=== PATIENT | female | born 1970 | race Caucasian/White ===

== ENCOUNTER 2017-08-11 09:02 | Emergency (ER) | payer BC ==
[2017-08-11] MEDS ORDERED: KETOROLAC 30 MG/ML INJ ONE (09:59)
[2017-08-11] MEDS ORDERED: NA CHLORIDE 0.9% 1,000 ML ONE (09:59)
[2017-08-11] MEDS ORDERED: ONDANSETRON 4 MG/2 ML VIAL ONE (09:59)
--- NOTE | 2017-08-11 10:20 | RAD REPORT ---
EXAM DESCRIPTION: CT - Head Brain Wo Cont - 08/11/2017 10:01 am CLINICAL HISTORY: Headache COMPARISON: 2013 TECHNIQUE: Computed axial tomography of the head was obtained. IV contrast was not requested. All CT scans are performed using dose optimization technique as appropriate and may include automated exposure control or mA/KV adjustment according to patient size. FINDINGS: An intracranial bleed is not seen . The ventricles are normal in caliber. No extra-axial fluid collection is noted. Fluid within the sinuses/ mastoids is not seen. IMPRESSION: No acute intracranial abnormality is seen. If patient's symptoms persist MRI of the bra in would be recommended.
[2017-08-11 10:26] LABS: Urine Specific Gravity 1.015 (1.005-1.030)
[2017-08-11 10:26] LABS: Absolute Lymphocytes (CBC) 3.4 K/uL (0.7-4.9); Absolute Monocytes 0.7 K/uL (0.1-1.3); Absolute Neutrophil 6.4 K/uL (1.8-8.0); Basophils % 0.8 % (0-1.3); Eosinophils % 1.9 % (0-4.4); Lymphocytes % 31.1 % (15.3-44.8); MCH 30.1 pg (27.0-35.0); MCV 88.2 fL (80-100); MPV 8.3 fL (7.6-11.3); Monocytes % 6.6 % (3.3-12.3); RBC Red Blood Cell Count 4.76 M/uL (3.86-4.86)
[2017-08-11 10:26] LABS: Urine Blood NEGATIVE (NEG); Urine Glucose NEGATIVE (NEG); Urine Protein NEGATIVE (NEG); Urine Specific Gravity 1.015 (1.005-1.030); Urine pH 6.5 (5.0-7.0)
[2017-08-11 10:27] LABS: Protime INR 1.01
[2017-08-11 10:40] LABS: Potassium 3.9 mEq/L (3.6-5.0)
--- NOTE | 2017-08-11 14:15 | EDPHYS ---
Physician Documentation [facility] Name: Paola De La Paz Age: 46 yrs Sex: Female : 1970 Arrival Date: 08/11/2017 Time: 09:05 Bed 17 Private MD: Randolph Wetzel ED Physician Benjamín Ramírez HPI: 08/11 21:34 This 46 yrs old Female presents to ER via Wheelchair with complaints of kdr Headache, Body Numbness. 21:34 The patient complains of pain to the left temporal area and left shinto. The patient kdr describes the headache as Sharp stabbing to left shinto. Onset: The symptoms/episode began/occurred acutely, just prior to arrival. Associated signs and symptoms: Pertinent positives: Global numbness and tingling, Pertinent negatives: altered mental status, dizziness, fever, malaise, nausea, neck stiffness, Photophobia rash, sinus congestion, sinus tenderness, vision changes, vision loss, vomiting, weakness, vertigo. Severity of symptoms: At its worst the pain was moderate, severe, just prior to arrival, in the emergency department the pain has improved, mildly. Headache History: The patient has had previous headaches and this one is different than previous episodes, and this one is more severe than previous episodes. The symptoms are alleviated by nothing. the symptoms are aggravated by nothing. The patient has not experienced similar symptoms in the past, has a prior history of migraines but this is different . The patient has not recently seen a physician. Historical: - Allergies: 09:10 PENICILLINS; aa5 09:10 Iodine; aa5 - PMHx: 09:10 PE; DVT; aa5 09:10 CVA; Pneumonia; aa5 - PSHx: 09:10 Tubal ligation; Tonsillectomy; Surgery for DVT; aa5 - Immunization history:: Adult Immunizations up to date. - Social history:: Smoking status: Patient uses tobacco products, smokes one pack cigarettes per day. - Ebola Screening: : No symptoms or risks identified at this time. ROS: 21:34 Constitutional: Negative for fever, chills, and weight loss, Eyes: Negative for injury, kdr pain, redness, and discharge, ENT: Negative for injury, pain, and discharge, Neck: Negative for injury, pain, and swelling, Cardiovascular: Negative for chest pain, palpitations, and edema, Respiratory: Negative for shortness of breath, cough, wheezing, and pleuritic chest pain, Abdomen/GI: Negative for abdominal pain, nausea, vomiting, diarrhea, and constipation, Back: Negative for injury and pain, : Negative for injury, bleeding, discharge, and swelling, MS/Extremity: Negative for injury and deformity, Skin: Negative for injury, rash, and discoloration, Psych: Negative for depression, anxiety, suicide ideation, homicidal ideation, and hallucinations, Allergy/Immunology: Negative for hives, rash, and allergies, Endocrine: Negative for neck swelling, polydipsia, polyuria, polyphagia, and marked weight changes, Hematologic/Lymphatic: Negative for swollen nodes, abnormal bleeding, and unusual bruising. 21:34 Neuro: Positive for headache, numbness, tingling, Negative for altered mental status, dizziness, gait disturbance, hearing loss, loss of consciousness, seizure activity, speech changes, syncope, near syncope, tinnitus, tremor, visual changes, weakness. Exam: 21:34 Constitutional: This is a well developed, well nourished patient who is awake, alert, kdr and in no acute distress. Head/Face: Normocephalic, atraumatic. Eyes: Pupils equal round and reactive to light, extra-ocular motions intact. Lids and lashes normal. Conjunctiva and sclera are non-icteric and not injected. Cornea within normal limits. Periorbital areas with no swelling, redness, or edema. Neck: Trachea midline, no thyromegaly or masses palpated, and no cervical lymphadenopathy. Supple, full range of motion without nuchal rigidity, or vertebral point tenderness. No Meningismus. Chest/axilla: Normal chest wall appearance and motion. Nontender with no deformity. No lesions are appreciated. Cardiovascular: Regular rate and rhythm with a normal S1 and S2. No gallops, murmurs, or rubs. Normal PMI, no JVD. No pulse deficits. Respiratory: Lungs have equal breath sounds bilaterally, clear to auscultation and percussion. No rales, rhonchi or wheezes noted. No increased work of breathing, no retractions or nasal flaring. Abdomen/GI: Soft, non-tender, with normal bowel sounds. No distension or tympany. No guarding or rebound. No evidence of tenderness throughout. Back: No spinal tenderness. No costovertebral tenderness. Full range of motion. Skin: Warm, dry with normal turgor. Normal color with no rashes, no lesions, and no evidence of cellulitis. MS/ Extremity: Pulses equal, no cyanosis. Neurovascular intact. Full, normal range of motion. Neuro: Awake and alert, GCS 15, oriented to person, place, time, and situation. Cranial nerves II-XII grossly intact. Motor strength 5/5 in all extremities. Sensory grossly intact. Cerebellar exam normal. Normal gait. Psych: Awake, alert, with orientation to person, place and time. Behavior, mood, and affect are within normal limits. Vital Signs: 09:12 BP 159 / 102; Pulse 66; Resp 16 S; Temp 98.2(O); Pulse Ox 95% on R/A; Weight 99.79 kg aa5 (R); Height 5 ft. 9 in. (175.26 cm) (R); Pain 8/10; 10:20 BP 141 / 91; Pulse 61; Resp 16; Pulse Ox 97% on R/A; ae1 11:07 BP 146 / 77; Pulse 66; Resp 18; Pulse Ox 99% on R/A; ae1 12:43 BP 165 / 83; Pulse 69; Resp 15; Pulse Ox 100% on R/A; ae1 09:12 Body Mass Index 32.49 (99.79 kg, 175.26 cm) aa5 MDM: 13:45 Patient medically screened. snw 21:34 Data reviewed: vital signs, nurses notes, lab test result(s), radiologic studies. kdr Counseling: I had a detailed discussion with the patient and/or guardian regarding: the historical points, exam findings, and any diagnostic results supporting the discharge/admit diagnosis, lab results, radiology results, the need for outpatient follow up. Physician consultation: Juan Barragan MD regarding consult, patient's condition, would like further tests performed, ESR, CRP. 08/11 09:46 Order name: CBC with Diff; Complete Time: 10:55 kdr 08/11 09:46 Order name: Chem 7; Complete Time: 10:55 kdr 08/11 09:46 Order name: PT-INR; Complete Time: 10:55 kdr 08/11 09:59 Order name: Urine Dipstick--Ancillary (enter results); Complete Time: 10:55 bd 08/11 10:02 Order name: Urine --Ancillary (enter results); Complete Time: 10:55 bd 08/11 12:53 Order name: ESR; Complete Time: 14:09 kdr 08/11 09:46 Order name: CT Head Brain wo Cont; Complete Time: 10:55 kdr 08/11 09:46 Order name: Urine Dipstick-Ancillary (obtain specimen); Complete Time: 09:55 kdr 08/11 12:53 Order name: CRP; Complete Time: 14:09 kdr Administered Medications: 10:00 Drug: NS 0.9% 1000 ml Route: IV; Rate: 125 ml/hr; Site: right antecubital; ae1 14:25 Follow up: IV Status: IV converted to saline lock ae1 10:09 Drug: Zofran 4 mg Route: IVP; Site: right antecubital; ae1 12:57 Follow up: Response: Nausea is decreased ae1 10:32 Drug: TORadol 30 mg Route: IVP; Site: right antecubital; ae1 12:57 Follow up: Response: Pain is decreased ae1 Disposition: 08/11/17 14:15 Discharged to Home. Impression: Headache, Neuralgia and neuritis, unspecified. - Condition is Stable. - Discharge Instructions: General Headache Without Cause. - Medication Reconciliation Form, Thank You Letter form. - Follow up: Randolph Wetzel MD; When: 2 - 3 days; Reason: If symptoms return, Further diagnostic work-up, Recheck today's complaints, Continuance of care, Re-evaluation by your physician. Follow up: Juan Barragan MD; When: 2 - 3 days; Reason: If symptoms return, Further diagnostic work-up, Recheck today's complaints, Continuance of care, Re-evaluation by your physician. - Problem is new. - Symptoms are resolved. Signatures: Dispatcher [employer] EDMS Benjamín Ramírez MD MD kdr Therrien, Shelly, SHAQUILLE-Minda [employer]REDDING [employer] EQUIPMENT OPERATOR-Lovew Ángela Biswas, RN RN aa5 Joel Presley RN RN ae1 Corrections: (The following items were deleted from the chart) 14:24 14:15 08/11/2017 14:15 Discharged to Home. Impression: Headache; Neuralgia and ae1 neuritis, unspecified. Condition is Stable. Forms are Medication Reconciliation Form, Thank You Letter, Antibiotic Education, Prescription Opioid Use. Follow up: Randolph Wetzel; When: 2 - 3 days; Reason: If symptoms return, Further diagnostic work-up, Recheck today's complaints, Continuance of care, Re-evaluation by your physician. Follow up: Juan Barragan; When: 2 - 3 days; Reason: If symptoms return, Further diagnostic work-up, Recheck today's complaints, Continuance of care, Re-evaluation by your physician. Problem is new. Symptoms are resolved. kdr
--- NOTE | 2017-08-11 14:15 | ER ---
Nurse's Notes [facility] Name: Paola De La Paz Age: 46 yrs Sex: Female : 1970 Arrival Date: 08/11/2017 Time: 09:05 Bed 17 Private MD: Randolph Wetzel Diagnosis: Headache;Neuralgia and neuritis, unspecified Presentation: 08/11 09:10 Presenting complaint: Patient states: "I was just at work when all of a sudden I got a aa5 sharp pain on my head and my whole body is numb now". pt c/o headache to left christianity. Pt states "my family has a history of aneurysms so I am worried". 09:10 Transition of care: patient was not received from another setting of care. Onset of aa5 symptoms was August 11, 2017. Risk Assessment: Do you want to hurt yourself or someone else? Patient reports no desire to harm self or others. Initial Sepsis Screen: Does the patient meet any 2 criteria? No. Patient's initial sepsis screen is negative. Does the patient have a suspected source of infection? No. Patient's initial sepsis screen is negative. Care prior to arrival: None. 09:10 Method Of Arrival: Wheelchair aa5 09:10 Acuity: WILLIAM 2 aa5 Triage Assessment: 10:16 Headache History: The patient has had previous headaches and this one is different than ae1 previous episodes, and this one is more severe than previous episodes. General: Appears uncomfortable, Behavior is calm, cooperative, quiet. Pain: Complains of pain in head and back of head Pain began suddenly, Also complains of photophobia. Neuro:. Respiratory: Airway is patent Respiratory effort is even, unlabored, Respiratory pattern is regular, symmetrical. 10:16 Pain: Pain currently is 9 out of 10 on a pain scale. ae1 Historical: - Allergies: 09:10 PENICILLINS; aa5 09:10 Iodine; aa5 - PMHx: 09:10 PE; DVT; aa5 09:10 CVA; Pneumonia; aa5 - PSHx: 09:10 Tubal ligation; Tonsillectomy; Surgery for DVT; aa5 - Immunization history:: Adult Immunizations up to date. - Social history:: Smoking status: Patient uses tobacco products, smokes one pack cigarettes per day. - Ebola Screening: : No symptoms or risks identified at this time. Screenin:16 Abuse screen: Denies threats or abuse. Nutritional screening: No deficits noted. ae1 Tuberculosis screening: No symptoms or risk factors identified. Fall Risk None identified. Assessment: 11:09 Reassessment: Patient appears in no apparent distress at this time. Patient states ae1 feeling better. Vital Signs: 09:12 BP 159 / 102; Pulse 66; Resp 16 S; Temp 98.2(O); Pulse Ox 95% on R/A; Weight 99.79 kg aa5 (R); Height 5 ft. 9 in. (175.26 cm) (R); Pain 8/10; 10:20 BP 141 / 91; Pulse 61; Resp 16; Pulse Ox 97% on R/A; ae1 11:07 BP 146 / 77; Pulse 66; Resp 18; Pulse Ox 99% on R/A; ae1 12:43 BP 165 / 83; Pulse 69; Resp 15; Pulse Ox 100% on R/A; ae1 09:12 Body Mass Index 32.49 (99.79 kg, 175.26 cm) aa5 ED Course: 09:05 Patient arrived in ED. mr 09:05 Randolph Wetzel MD is Private Physician. mr 09:10 Arm band placed on Patient placed in an exam room, on a stretcher. aa5 09:11 Benjamín Ramírez MD is Attending Physician. kdr 09:15 Triage completed. aa5 09:19 Joel Presley, LUIGI is Primary Nurse. ae1 09:58 Urine collected: clean catch specimen, clear, milagros colored. jb1 10:[address] via wheelchair. sj 10:01 CT Head Brain wo Cont In Process Unspecified. EDMS 10:01 CT completed. Patient tolerated procedure well. Patient moved back from CT. sj 10:08 Inserted saline lock: 20 gauge in right antecubital area, using aseptic technique. ae1 Blood collected. 10:18 Bed in low position. Call light in reach. Side rails up X 1. Adult w/ patient. Pulse ox ae1 on. NIBP on. Warm blanket given. 14:10 Randolph Wetzel MD is Referral Physician. kdr 14:10 Juan Barragan MD is Referral Physician. kdr 14:24 No provider procedures requiring assistance completed. IV discontinued, intact, ae1 bleeding controlled, No redness/swelling at site. Pressure dressing applied. Administered Medications: 10:00 Drug: NS 0.9% 1000 ml Route: IV; Rate: 125 ml/hr; Site: right antecubital; ae1 14:25 Follow up: IV Status: IV converted to saline lock ae1 10:09 Drug: Zofran 4 mg Route: IVP; Site: right antecubital; ae1 12:57 Follow up: Response: Nausea is decreased ae1 10:32 Drug: TORadol 30 mg Route: IVP; Site: right antecubital; ae1 12:57 Follow up: Response: Pain is decreased ae1 Outcome: 14:15 Discharge ordered by . kdr 14:24 Discharged to home ambulatory. ae1 14:24 Condition: stable 14:24 Discharge instructions given to patient, Instructed on discharge instructions, follow up and referral plans. Demonstrated understanding of instructions, follow-up care. 14:24 Patient left the ED. ae1 Signatures: Dispatcher [employer] EDMS Tay Juarez jb1 Benjamín Ramírez MD MD kdr Rivera, Maria mr Jones, Ángela Kent RN RN aa5 Joel Presley RN RN ae1 Corrections: (The following items were deleted from the chart) 09:17 09:10 Presenting complaint: Patient states: "I was just at work when all of a sudden I aa5 got a sharp pain on my head and my whole body is numb now". pt c/o headache to left christianity. aa5 09:17 09:10 Acuity: WILLIAM 3 aa5 aa5
[2017-08-11 14:28] VITALS: TEMP 98.2
[2017-08-11 14:31] VITALS: BP 165/83; O2SAT 100
== END 2017-08-11 14:24 | disposition home or self-care (01) ==
LOC: ER 09:02
DX: M79.2 Neuralgia and neuritis, unspecified (principal); F17.210 Nicotine dependence, cigarettes, uncomplicated; Z88.0 Allergy status to penicillin; Z91.048 Other nonmedicinal substance allergy status
CPT/HCPCS: 36415; 70450; 80048; 81003; 81025; 85025; 85610; 85652; 86140; 96361; 96374; 96375; 99284; J2405; J7030

== ENCOUNTER 2018-03-12 12:56 | Emergency (ER) | payer BC ==
[2018-03-12] MEDS ORDERED: NA CHLORIDE 0.9% 1,000 ML ONE (14:05)
[2018-03-12 14:06] LABS: Absolute Lymphocytes (CBC) 1.3 K/uL (0.7-4.9); Absolute Monocytes 0.7 K/uL (0.1-1.3); Absolute Neutrophil 10.6 K/uL (1.8-8.0); Basophils % 0.7 % (0-1.3); Eosinophils % 0.3 % (0-4.4); Hematocrit 48.2 % (36.0-45.0); Lymphocytes % 10.5 % (15.3-44.8); MPV 8.5 fL (7.6-11.3); Monocytes % 5.2 % (3.3-12.3); Protime INR 1.14
--- NOTE | 2018-03-12 14:12 | RAD REPORT ---
EXAM DESCRIPTION: RAD - Chest Pa And Lat (2 Views) - 03/12/2018 1:52 pm CLINICAL HISTORY: COUGH Chest pain. COMPARISON: CHEST SINGLE VIEW dated 08/29/2013; CHEST SINGLE VIEW dated 08/16/2013; CHEST SINGLE VIEW d ated 09/18/2012; CHEST SINGLE VIEW dated 12/08/2009 FINDINGS: The lungs are clear. The heart is normal in size. No displaced fractures. IMPRESSION: No acute or concerning finding suspected.
[2018-03-12 14:18] LABS: Potassium 3.5 mmol/L (3.5-5.1)
--- NOTE | 2018-03-12 14:54 | RAD REPORT ---
EXAM DESCRIPTION: CT - Chest For Pe Angio - 03/12/2018 2:44 pm CLINICAL HISTORY: Chest pain. cough, hemoptysis, hx of PE COMPARISON: CTANGIO CHEST FOR PE dated 08/16/2013 TECHNIQUE: CT angiogram of the pulmonary arteries was performed with MIP. All CT scans are performed using dose optimization technique as appropriate and may include automated exposure control or mA/KV adjustment according to patient size. FINDINGS: No evidence of pulmonary thromboembolism. No acute aortic finding demonstrated. The lungs are clear. No significant pericardial or pleural fluid. No concerning bony finding. IMPRESSION: No evidence of pulmonary thromboembolism. No acute lung findings.
--- NOTE | 2018-03-12 15:07 | EDPHYS ---
Physician Documentation [facility] Name: Paola De La Paz Age: 47 yrs Sex: Female : 1970 Arrival Date: 03/12/2018 Time: 13:00 Bed 8 Private MD: Randolph Wetzel ED Physician Anup Rivera HPI: 03/12 13:36 This 47 yrs old Female presents to ER via Ambulatory with complaints of Cough.rn 13:36 The patient or guardian reports cough, that is intermittent, described as mild. rn 13:40 Onset: The symptoms/episode began/occurred 2 day(s) ago. Severity of symptoms: At their rn worst the symptoms were mild, in the emergency department the symptoms are unchanged. The patient has experienced similar episodes in the past. The patient has not recently seen a physician. Reports fever, chills, muscle aches, cough, for a few days, similar symptoms in 2 other family members, mainly concerned because of history of dvt/PE, is on coumadin, and patient reports this feels different compared to when had blood clots. . Historical: - Allergies: 13:05 Iodine; ss 13:05 PENICILLINS; ss - PMHx: 13:05 CVA; DVT; PE; Pneumonia; Hypertension; ss - PSHx: 13:05 Tubal ligation; Tonsillectomy; Surgery for DVT; ss - Immunization history:: Adult Immunizations up to date. - Social history:: Smoking status: Patient uses tobacco products, smokes one pack cigarettes per day. - Ebola Screening: : Patient denies exposure to infectious person Patient denies travel to an Ebola-affected area in the 21 days before illness onset. - Family history:: not pertinent. - Hospitalizations: : No recent hospitalization is reported. ROS: 13:40 Constitutional: Negative for weight loss, + fever and chills Eyes: Negative for injury, rn pain, redness, and discharge, Cardiovascular: Negative for chest pain, palpitations, and edema, Respiratory: + cough Abdomen/GI: Negative for abdominal pain, nausea, vomiting, diarrhea, and constipation, MS/Extremity: Negative for injury and deformity, Skin: Negative for injury, rash, and discoloration, Neuro: Negative for headache, weakness, numbness, tingling, and seizure. Exam: 13:40 Constitutional: This is a well developed, well nourished patient who is awake, alert, rn and in no acute distress. Head/Face: Normocephalic, atraumatic. Eyes: Pupils equal round and reactive to light, extra-ocular motions intact. Lids and lashes normal. Conjunctiva and sclera are non-icteric and not injected. Cornea within normal limits. Periorbital areas with no swelling, redness, or edema. ENT: dry MM, no stridor Cardiovascular: Tachycardic, regular, no murmur Respiratory: Lungs have equal breath sounds bilaterally, clear to auscultation. No increased work of breathing, no retractions or nasal flaring. Abdomen/GI: soft, non-tender Skin: Warm, dry with normal turgor. Normal color with no rashes, no lesions, and no evidence of cellulitis. MS/ Extremity: Pulses equal, no cyanosis. Neurovascular intact. Full, normal range of motion. LLE > circumference compared to RLE (at baseline). Neuro: Awake and alert, GCS 15, oriented to person, place, time, and situation. Cranial nerves II-XII grossly intact. Motor strength 5/5 in all extremities. Sensory grossly intact. Vital Signs: 13:05 BP 190 / 123; Pulse 119; Resp 20; Temp 97.9(O); Pulse Ox 97% on R/A; Weight 99.79 kg; ss Height 5 ft. 9 in. (175.26 cm); Pain 10/10; 15:08 BP 161 / 95; Pulse 103; Pulse Ox 100% on R/A; sg 13:05 Body Mass Index 32.49 (99.79 kg, 175.26 cm) ss MDM: 13:18 Patient medically screened. rn 15:05 Differential Diagnosis: Bronchitis Influenza Upper Respiratory Infection Viral Syndrome rn Pneumonia Other Pulmonary embolism. Data reviewed: vital signs, nurses notes, lab test result(s), radiologic studies, CT scan, plain films, and as a result, I will discharge patient. Counseling: I had a detailed discussion with the patient and/or guardian regarding: the historical points, exam findings, and any diagnostic results supporting the discharge/admit diagnosis, lab results, radiology results, the need for outpatient follow up, to return to the emergency department if symptoms worsen or persist or if there are any questions or concerns that arise at home. Special discussion: I discussed with the patient/guardian in detail that at this point there is no indication for admission to the hospital. It is understood, however, that if the symptoms persist or worsen the patient needs to return immediately for re-evaluation. 03/12 13:28 Order name: CBC with Diff; Complete Time: 15: rn 03/12 13:28 Order name: Basic Metabolic Panel; Complete Time: 15: rn 03/12 13:28 Order name: Flu; Complete Time: 15: rn 03/12 13:28 Order name: Strep; Complete Time: 15: rn 03/12 13:28 Order name: PT-INR; Complete Time: 15: rn 03/12 13:28 Order name: Blood Culture Adult (2) rn 03/12 13:28 Order name: IV Start; Complete Time: 13:53 rn 03/12 13:28 Order name: XRAY Chest Pa And Lat (2 Views); Complete Time: 15: rn 03/12 13:28 Order name: Procalcitonin; Complete Time: 15: rn 03/12 13:29 Order name: CT Chest For PE Angio; Complete Time: 15: rn 03/12 14:12 Order name: Throat Culture EDMS Administered Medications: 13:58 Drug: NS 0.9% 1000 ml Route: IV; Rate: 1000 ml; Site: right antecubital; sg 14:55 Follow up: Response: No adverse reaction; IV Status: Completed infusion; IV Intake: sg 1000ml Disposition: 03/12/18 15:06 Discharged to Home. Impression: Cough, Hemoptysis, Bronchiectasis. - Condition is Stable. - Discharge Instructions: Hemoptysis, Cough, Adult. - Prescriptions for Zithromax Z- Lionel 250 mg Oral Tablet - take 1 tablet by ORAL route as directed for 5 days Day 1 - take two (2) tablets one time. Day 2, 3, 4 , 5 take one (1) tablet once daily.; 6 tablet. - Medication Reconciliation Form, Thank You Letter, Antibiotic Education, Prescription Opioid Use form. - Follow up: Randolph Wetzel MD; When: As needed; Reason: Recheck today's complaints, Re-evaluation by your physician. - Problem is new. - Symptoms have improved. Signatures: Dispatcher [employer] EDMS Sal, Toni, RN RN sg Anup Rivera MD MD rn Smirch, Shelby, RN RN ss Botello, Elizabeth eb Corrections: (The following items were deleted from the chart) 15:07 15:06 03/12/2018 15:06 Discharged to Home. Impression: Cough; Hemoptysis; sg Bronchiectasis. Condition is Stable. Forms are Medication Reconciliation Form, Thank You Letter, Antibiotic Education, Prescription Opioid Use. Follow up: Randolph Wetzel; When: As needed; Reason: Recheck today's complaints, Re-evaluation by your physician. Problem is new. Symptoms have improved. rn 15:59 15:07 03/12/2018 15:06 Discharged to Home. Impression: Cough; Hemoptysis; eb Bronchiectasis. Condition is Stable. Discharge Instructions: Hemoptysis, Cough, Adult. Prescriptions for Zithromax Z-Lionel 250 mg Oral Tablet - take 1 tablet by ORAL route as directed for 5 days Day 1 - take two (2) tablets one time. Day 2, 3, 4 , 5 take one (1) tablet once daily.; 6 tablet. and Forms are Medication Reconciliation Form, Thank You Letter, Antibiotic Education, Prescription Opioid Use. Follow up: Randolph Wetzel; When: As needed; Reason: Recheck today's complaints, Re-evaluation by your physician. Problem is new. Symptoms have improved. sg
--- NOTE | 2018-03-12 15:07 | ER ---
Nurse's Notes [facility] Name: Paola De La Paz Age: 47 yrs Sex: Female : 1970 Arrival Date: 03/12/2018 Time: 13:00 Bed 8 Private MD: Randolph Wetzel Diagnosis: Cough;Hemoptysis;Bronchiectasis Presentation: 03/12 13:06 Presenting complaint: Patient states: cough, nasal congestion/ drainage, chills and ss body aches that began 2 days ago. Transition of care: patient was not received from another setting of care. Onset of symptoms was March 10, 2018. Risk Assessment: Do you want to hurt yourself or someone else? Patient reports no desire to harm self or others. Initial Sepsis Screen: Does the patient meet any 2 criteria? HR > 90 bpm. Does the patient have a suspected source of infection? Yes: Productive cough/pneumonia. Care prior to arrival: None. 13:06 Method Of Arrival: Ambulatory ss 13:06 Acuity: WILLIAM 3 ss Historical: - Allergies: 13:05 Iodine; ss 13:05 PENICILLINS; ss - PMHx: 13:05 CVA; DVT; PE; Pneumonia; Hypertension; ss - PSHx: 13:05 Tubal ligation; Tonsillectomy; Surgery for DVT; ss - Immunization history:: Adult Immunizations up to date. - Social history:: Smoking status: Patient uses tobacco products, smokes one pack cigarettes per day. - Ebola Screening: : Patient denies exposure to infectious person Patient denies travel to an Ebola-affected area in the 21 days before illness onset. - Family history:: not pertinent. - Hospitalizations: : No recent hospitalization is reported. Screenin:00 Abuse screen: Denies threats or abuse. Denies injuries from another. Nutritional sg screening: No deficits noted. Tuberculosis screening: No symptoms or risk factors identified. Never had TB. Fall Risk None identified. Assessment: 14:00 General: Appears in no apparent distress. well groomed, well developed, well nourished, sg Behavior is calm, cooperative, appropriate for age. Pain: Denies pain. 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 Full function Gait is steady, Speech is normal, Facial symmetry appears normal. Cardiovascular: Capillary refill is brisk in bilateral fingers Patient's skin is warm and dry. Chest pain is denied. Respiratory: Reports cough that is dry, persistent Airway is patent Respiratory effort is even, unlabored, Respiratory pattern is regular, symmetrical, Breath sounds are clear the patient has mild shortness of breath. GI: No signs and/or symptoms were reported involving the gastrointestinal system. : No signs and/or symptoms were reported regarding the genitourinary system. EENT: Reports nasal congestion. Derm: Skin is pink, warm \T\ dry. Musculoskeletal: No signs and/or symptoms reported regarding the musculoskeletal system. Vital Signs: 13:05 BP 190 / 123; Pulse 119; Resp 20; Temp 97.9(O); Pulse Ox 97% on R/A; Weight 99.79 kg; ss Height 5 ft. 9 in. (175.26 cm); Pain 10/10; 15:08 BP 161 / 95; Pulse 103; Pulse Ox 100% on R/A; sg 13:05 Body Mass Index 32.49 (99.79 kg, 175.26 cm) ED Course: 13:00 Patient arrived in ED. sb2 13:00 Randolph Wetzel MD is Private Physician. sb2 13:06 Arm band placed on right wrist. ss 13:07 Triage completed. ss 13:10 Toni Sal, RN is Primary Nurse. sg 13:18 Anup Rivera MD is Attending Physician. rn 13:40 Inserted saline lock: 20 gauge in left antecubital area, using aseptic technique. eb 13:45 Initial lab(s) drawn, by me, sent to lab. First set of blood cultures drawn by me, eb Second set of blood cultures drawn by me, Flu and/or RSV swab sent to lab. Strep swab sent to lab. 13:48 XRAY Chest Pa And Lat (2 Views) In Process Unspecified. EDMS 13:52 Radiology exam delayed due to lab results not completed at this time. (BUN/Creatinine). mw3 13:52 Procalcitonin Sent. eb 13:52 Blood Culture Adult (2) Sent. eb 13:52 PT-INR Sent. eb 13:52 Strep Sent. eb 13:53 Flu Sent. eb 13:53 Basic Metabolic Panel Sent. eb 13:53 CBC with Diff Sent. eb 14:00 Patient has correct armband on for positive identification. Bed in low position. Call sg light in reach. Side rails up X2. monitoring analyst on. Pulse ox on. NIBP on. 14:32 Throat Culture Sent. sv 14:43 CT completed. Patient tolerated procedure well. Patient moved back from CT. mw3 14:44 CT Chest For PE Angio In Process Unspecified. EDMS 15:00 No provider procedures requiring assistance completed. sg 15:06 Randolph Wetzel MD is Referral Physician. rn Administered Medications: 13:58 Drug: NS 0.9% 1000 ml Route: IV; Rate: 1000 ml; Site: right antecubital; sg 14:55 Follow up: Response: No adverse reaction; IV Status: Completed infusion; IV Intake: sg 1000ml Intake: 14:55 IV: 1000ml; Total: 1000ml. Outcome: 15:06 Discharge ordered by . rn 15:07 Patient left the ED. sg 15:59 Patient left the ED. eb Signatures: Dispatcher [employer] EDPR Tita Huston RN LUIGI Toni Sal RN LUIGI Anup Rivera MD MD rn Smirch, Shelby, RN RN ss Billeau, Sheri sb2 Nguyen You Dilma Webb mw3
[2018-03-12 16:12] VITALS: TEMP 97.9
[2018-03-12 16:14] VITALS: BP 161/95; O2SAT 100
== END 2018-03-12 15:59 | disposition home or self-care (01) ==
LOC: ER 12:56
DX: J47.9 Bronchiectasis, uncomplicated (principal); R05 Cough; I10 Essential (primary) hypertension; F17.210 Nicotine dependence, cigarettes, uncomplicated; Z88.0 Allergy status to penicillin; Z91.048 Other nonmedicinal substance allergy status; Z86.718 Personal history of other venous thrombosis and embolism
CPT/HCPCS: 36415; 71046; 71275; 80048; 84145; 85025; 85610; 87040; 87070; 87081; 87804; 96360; 99285; J7030; Q9967

== ENCOUNTER 2018-08-14 06:48 | Emergency (ER) | payer BC ==
[2018-08-14 07:20] LABS: Absolute Lymphocytes (CBC) 1.8 K/uL (0.7-4.9); Absolute Monocytes 0.7 K/uL (0.1-1.3); Absolute Neutrophil 6.7 K/uL (1.8-8.0); Eosinophils % 2.1 % (0-4.4); Hematocrit 42.5 % (36.0-45.0); Monocytes % 7.1 % (3.3-12.3); RBC Red Blood Cell Count 4.83 M/uL (3.86-4.86)
[2018-08-14 07:26] LABS: Protime INR 1.07
[2018-08-14 07:52] LABS: ALT/SGPT 31 U/L (12-78); AST/SGOT 15 U/L (15-37); Albumin 4.1 g/dL (3.4-5.0); Alkaline Phosphatase 127 U/L (45-117); BUN Blood Urea Nitrogen 13 mg/dL (7-18); Bicarbonate 27 mmol/L (21-32); Bilirubin Direct 0.1 mg/dL (0-0.2); Bilirubin Total 0.5 mg/dL (0.2-1.0); Glucose Level 100 mg/dL (74-106); Magnesium 2.1 mg/dL (1.8-2.4); NT PRO-BNP 233 pg/mL (<125); Potassium 3.6 mmol/L (3.5-5.1); Sodium Level 137 mmol/L (136-145); Troponin (Emerg Dept Use Only) < 0.02 ng/mL (0.0-0.045)
--- NOTE | 2018-08-14 08:58 | RAD REPORT ---
EXAM DESCRIPTION: RAD - Chest Single View - 08/14/2018 7:28 am CLINICAL HISTORY: CHEST PAIN Chest pain. COMPARISON: Chest Pa And Lat (2 Views) dated 03/12/2018; CHEST SINGLE VIEW dated 08/29/2013; CHEST SI NGLE VIEW dated 08/16/2013; CHEST SINGLE VIEW dated 09/18/2012 FINDINGS: Portable technique limits examination quality. The lungs are grossly clear. The heart is normal in size. No displaced fractures. IMPRESSION: No acute intrathoracic process suspected.
[2018-08-14] MEDS ORDERED: ACETAMINOPHEN 500 MG TAB ONE (09:43)
[2018-08-14 11:55] LABS: Urine Blood NEGATIVE (NEG); Urine Glucose NEGATIVE (NEG); Urine Protein TRACE (NEG); Urine Specific Gravity 1.015 (1.005-1.030)
--- NOTE | 2018-08-14 12:17 | EKG ---
Test Date: 2018-08-14 Test Time: 06:50:40 Branch Associate: BOGDAN MEASUREMENT RESULTS: Intervals: Rate: 89 HI: 140 QRSD: 80 QT: 374 QTc: 455 [place]: P: 57 HI: 140 QRS: 50 T: 58 INTERPRETIVE STATEMENTS: Normal sinus rhythm Possible Left atrial enlargement Borderline ECG Compared to ECG 08/29/2013 23:30:28 No significant changes Electronically Signed On 08-14-18 12:16:31 CDT by William Uribe
--- NOTE | 2018-08-14 12:24 | ER ---
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 06:40 Transition of care: patient was not received from another setting of care. Onset of jb4 symptoms was August 12, 2018. Risk Assessment: Do you want to hurt yourself or someone else? Patient reports no desire to harm self or others. Initial Sepsis Screen: Does the patient meet any 2 criteria? HR > 90 bpm. Yes Does the patient have a suspected source of infection? No. Patient's initial sepsis screen is negative. Care prior to arrival: Medication(s) given: Normal saline infusion, 1000 mL, Nitroglycerin paste 1 inch. 06:40 Method Of Arrival: EMS: [facility] 4 06:40 Acuity: WILLIAM 3 jb4 Triage Assessment: 07:14 General: Appears in no apparent distress. uncomfortable, Behavior is calm, cooperative, hj appropriate for age. Pain: Complains of pain in chest Pain currently is 1 out of 10 on a pain scale. 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 - Social history:: Smoking status: Patient uses tobacco products, smokes one-half pack cigarettes per day, Patient uses alcohol, occasionally. - Ebola Screening: : No symptoms or risks identified at this time. Screenin:00 Abuse screen: Denies threats or abuse. Denies injuries from another. Nutritional hj screening: No deficits noted. Tuberculosis screening: No symptoms or risk factors identified. Fall Risk None identified. Assessment: 07:00 General: Appears in no apparent distress. uncomfortable, Behavior is calm, cooperative, hj appropriate for age. Pain: Complains of pain in chest. Neuro: Level of Consciousness is awake, alert, obeys commands, Oriented to person, place, time, situation, Appropriate for age. Cardiovascular: Capillary refill < 3 seconds Patient's skin is warm and dry. Respiratory: Airway is patent Respiratory effort is even, unlabored, Respiratory pattern is regular, symmetrical. GI: No signs and/or symptoms were reported involving the gastrointestinal system. : No signs and/or symptoms were reported regarding the genitourinary system. EENT: No signs and/or symptoms were reported regarding the EENT system. Derm: No signs and/or symptoms reported regarding the dermatologic system. Musculoskeletal: No signs and/or symptoms reported regarding the musculoskeletal system. 08:00 Reassessment: Patient and/or family updated on plan of care and expected duration. Pain hj level reassessed. Patient is alert, oriented x 3, equal unlabored respirations, skin warm/dry/pink. 09:00 Reassessment: Patient and/or family updated on plan of care and expected duration. Pain hj level reassessed. Patient is alert, oriented x 3, equal unlabored respirations, skin warm/dry/pink. reports of headache; MD aware with orders;. 10:06 Reassessment: Patient and/or family updated on plan of care and expected duration. Pain hj level reassessed. Patient is alert, oriented x 3, equal unlabored respirations, skin warm/dry/pink. awaiting for 2nd trop result;. 10:23 Reassessment: Patient and/or family updated on plan of care and expected duration. Pain hj level reassessed. Patient is alert, oriented x 3, equal unlabored respirations, skin warm/dry/pink. Patient states feeling better. Patient states symptoms have improved. 11:02 Reassessment: Patient appears in no apparent distress at this time. Reassessment: ae4 Patient is lying in bed with mother at bedside, patient states " I've been here for 4 hours, I'm ready to go." Will continue to monitor. Neuro: Level of Consciousness is awake, alert, obeys commands, Oriented to person, place, time, situation, Appropriate for age. Respiratory: Airway is patent Respiratory effort is even, unlabored, Respiratory pattern is. Vital Signs: 06:40 BP 152 / 107; Pulse 94; Resp 16; Temp 98.6(O); Pulse Ox 97% on R/A; Weight 99.79 kg jb4 (R); Height 5 ft. 8 in. (172.72 cm) (R); Pain 2/10; 08:32 BP 134 / 80; Pulse 88; Resp 18; Pulse Ox 95% on R/A; hj 09:34 BP 135 / 77; Pulse 87; Resp 18; Pulse Ox 98% on R/A; hj 10:05 BP 143 / 95; Pulse 84; Resp 18; Pulse Ox 100% on R/A; hj 10:23 BP 138 / 81; Pulse 88; Resp 18; Pulse Ox 96% on R/A; hj 12:31 BP 157 / 88; Pulse 79; Resp 16; Pulse Ox 99% on R/A; ae4 06:40 Body Mass Index 33.45 (99.79 kg, 172.72 cm) jb4 ED Course: 06:40 Arm band placed on right wrist. jb4 06:54 Patient arrived in ED. jb4 06:54 Emily Fair FNP-C [facility]. snw 06:58 Triage completed. jb4 06:59 Salvador Subramanian, RN is Primary Nurse. hj 07:00 Initial lab(s) drawn, by me, sent to lab. Maintain EMS IV. Dressing intact. Good blood hj return noted. Site clean \\T\\ dry. Gauge \\T\\ site: 20 R AC. 07:05 X-ray completed. Portable x-ray completed in exam room. Patient tolerated procedure jb2 well. 07:09 Len Nielsen MD is Attending Physician. gs 07:15 Patient has correct armband on for positive identification. Placed in gown. Bed in low hj position. Call light in reach. Side rails up X 1. 07:28 XRAY Chest (1 view) In Process Unspecified. EDMS 09:29 Troponin I Sent. hj 10:45 Urine collected: clean catch specimen, clear, milagros colored. jb1 11:02 PO fluids given. hj 12:21 William Uribe MD is Referral Physician. 12:32 No provider procedures requiring assistance completed. IV discontinued, intact, ae4 bleeding controlled, No redness/swelling at site. Pressure dressing applied. Administered Medications: 09:29 Drug: Tylenol 1000 mg Route: PO; hj 09:29 Follow up: Response: No adverse reaction; Pain is decreased Outcome: 12:23 Discharge ordered by MD. 12:32 Discharged to home ambulatory, with significant other. ae4 12:32 Condition: stable 12:32 Discharge instructions given to patient, significant other, Instructed on discharge instructions, follow up and referral plans. Demonstrated understanding of instructions. 12:33 Patient left the ED. ae4 Signatures: Dispatcher [employer] EDMS Tay Juarez jb1 Emily Fair, DISTRICT ASSOCIATE JUDGE-C DISTRICT ASSOCIATE JUDGE-Csnw Erick Triplett jb2 Salvador Subramanian RN RN Pedro Pablo Ledezma RN RN jb4 Len Nielsen MD MD Joel Presley, RN RN ae4 Corrections: (The following items were deleted from the chart) : 11:02 Reassessment: Patient is lying in bed and stated " I've been here four hours I'm ae4 ready to go." Updated patient on plan of care, will continue to monitor. Will notify provider patient is requesting discharge. : 11:02 Neuro: Level of Consciousness is awake, alert, obeys commands, Oriented to ae4 person, place, time, situation, Appropriate for age 11: 11:02 Respiratory: Airway is patent Respiratory effort is even, unlabored, Respiratory ae4 pattern is regular, symmetrical, hj
--- NOTE | 2018-08-14 12:24 | EDPHYS ---
Physician Documentation [facility] Name: Paola De La Paz Age: 47 yrs Sex: Female : 1970 Arrival Date: 08/14/2018 Time: 06:54 Bed 15 Private MD: ED Physician Len Nielsen HPI: 08/14 11:07 This 47 yrs old Female presents to ER via EMS with unknown complaint. gs 11:07 The patient or guardian reports chest pain that is located primarily in the anterior gs chest wall. Onset: this morning. The pain does not radiate. Associated signs and symptoms: Pertinent negatives: diaphoresis, shortness of breath. The chest pain is described as a heaviness. Duration: The patient or guardian reports multiple episodes, that are intermittent, that wax and wane, with no pattern. Modifying factors: The symptoms are alleviated by nothing. the symptoms are aggravated by nothing. Severity of pain: At its worst the pain was moderate in the emergency department the pain has resolved. The patient has experienced similar episodes in the past, a few times. 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 - Social history:: Smoking status: Patient uses tobacco products, smokes one-half pack cigarettes per day, Patient uses alcohol, occasionally. - Ebola Screening: : No symptoms or risks identified at this time. ROS: 11:07 All other systems are negative. gs Exam: 11:07 Head/Face: Normocephalic, atraumatic. Eyes: Pupils equal round and reactive to light, gs extra-ocular motions intact. Lids and lashes normal. Conjunctiva and sclera are non-icteric and not injected. Cornea within normal limits. Periorbital areas with no swelling, redness, or edema. ENT: Nares patent. No nasal discharge, no septal abnormalities noted. Tympanic membranes are normal and external auditory canals are clear. Oropharynx with no redness, swelling, or masses, exudates, or evidence of obstruction, uvula midline. Mucous membranes moist. Neck: Trachea midline, no thyromegaly or masses palpated, and no cervical lymphadenopathy. Supple, full range of motion without nuchal rigidity, or vertebral point tenderness. No Meningismus. Chest/axilla: Normal chest wall appearance and motion. Nontender with no deformity. No lesions are appreciated. Cardiovascular: Regular rate and rhythm with a normal S1 and S2. No gallops, murmurs, or rubs. Normal PMI, no JVD. No pulse deficits. Respiratory: Lungs have equal breath sounds bilaterally, clear to auscultation and percussion. No rales, rhonchi or wheezes noted. No increased work of breathing, no retractions or nasal flaring. Abdomen/GI: Soft, non-tender, with normal bowel sounds. No distension or tympany. No guarding or rebound. No evidence of tenderness throughout. Back: No spinal tenderness. No costovertebral tenderness. Full range of motion. Skin: Warm, dry with normal turgor. Normal color with no rashes, no lesions, and no evidence of cellulitis. MS/ Extremity: Pulses equal, no cyanosis. Neurovascular intact. Full, normal range of motion. Neuro: Awake and alert, GCS 15, oriented to person, place, time, and situation. Cranial nerves II-XII grossly intact. Motor strength 5/5 in all extremities. Sensory grossly intact. Cerebellar exam normal. Normal gait. 11:07 Constitutional: The patient appears alert, awake. 11:07 ECG was reviewed by the Attending Physician. Vital Signs: 06:40 BP 152 / 107; Pulse 94; Resp 16; Temp 98.6(O); Pulse Ox 97% on R/A; Weight 99.79 kg jb4 (R); Height 5 ft. 8 in. (172.72 cm) (R); Pain 2/10; 08:32 BP 134 / 80; Pulse 88; Resp 18; Pulse Ox 95% on R/A; hj 09:34 BP 135 / 77; Pulse 87; Resp 18; Pulse Ox 98% on R/A; hj 10:05 BP 143 / 95; Pulse 84; Resp 18; Pulse Ox 100% on R/A; hj 10:23 BP 138 / 81; Pulse 88; Resp 18; Pulse Ox 96% on R/A; hj 12:31 BP 157 / 88; Pulse 79; Resp 16; Pulse Ox 99% on R/A; ae4 06:40 Body Mass Index 33.45 (99.79 kg, 172.72 cm) jb4 MDM: 07:12 Patient medically screened. gs 11:07 Differential diagnosis: acute myocardial infarction, chest wall pain, pneumonia. HEART gs Score: History: Moderately Suspicious (1), ECG: Normal (0), Age: > 45 and < 65 years (1), Risk Factors: > or = 3 Risk factors for atherosclerotic disease (2), [Hypertension] [+ Family HX] Troponin: < or = 1 x Normal Limit (0). Data reviewed: vital signs, nurses notes. 11:14 Counseling: I had a detailed discussion with the patient and/or guardian regarding: the gs historical points, exam findings, and any diagnostic results supporting the discharge/admit diagnosis, lab results, radiology results. 12:18 Physician consultation: William Uribe MD regarding patient's condition, risk factors gs troponin results plan discharge, and will see patient in office. 08/14 06:55 Order name: Basic Metabolic Panel snw 08/14 06:55 Order name: CBC with Diff; Complete Time: 09:06 snw 08/14 06:55 Order name: LFT's; Complete Time: 09: snw 08/14 06:55 Order name: Magnesium; Complete Time: 09: snw 08/14 06:55 Order name: NT PRO-BNP; Complete Time: 09:06 snw 08/14 06:55 Order name: PT-INR; Complete Time: 09: snw 08/14 06:55 Order name: Troponin (emerg Dept Use Only); Complete Time: 09: snw 08/14 06:55 Order name: XRAY Chest (1 view); Complete Time: 09: snw 08/14 06:56 Order name: Basic Metabolic Panel; Complete Time: 09:06 EDMS 08/14 09:07 Order name: Troponin I; Complete Time: 11:03 gs 08/14 11:40 Order name: Urine Dipstick--Ancillary (enter results) bd 08/14 11:40 Order name: Urine --Ancillary (enter results) bd 08/14 11:57 Order name: Urine --Ancillary EDAR 08/14 11:57 Order name: Urine Dipstick-Ancillary [facility] 08/14 06:55 Order name: EKG; Complete Time: 06:56 snw 08/14 06:55 Order name: Cardiac monitoring; Complete Time: 06:57 snw 08/14 06:55 Order name: EKG - Nurse/Tech; Complete Time: 06:56 snw 08/14 06:55 Order name: IV Saline Lock; Complete Time: 06:57 snw 08/14 06:55 Order name: Labs collected and sent; Complete Time: 07:13 snw 08/14 06:55 Order name: O2 Per Protocol; Complete Time: 07:00 snw 08/14 06:55 Order name: O2 Sat Monitoring; Complete Time: 07:00 snw EC:07 Rate is 89 beats/min. Rhythm is regular. OK interval is normal. QRS interval is normal. gs QT interval is normal. T waves are Normal. No ST changes noted. Clinical impression: Normal ECG. Interpreted by me. Administered Medications: 09:29 Drug: Tylenol 1000 mg Route: PO; 09:29 Follow up: Response: No adverse reaction; Pain is decreased Disposition: 08/14/18 12:23 Discharged to Home. Impression: Chest pain, unspecified. - Condition is Stable. - Discharge Instructions: Nonspecific Chest Pain. - Medication Reconciliation Form, Thank You Letter, Antibiotic Education, Prescription Opioid Use form. - Follow up: William Uribe MD; When: 2 - 3 days; Reason: Re-evaluation by your physician. Signatures: Dispatcher [employer] EDAR Emily Fair, ASSISTANT PLANT MANAGER-C ASSISTANT PLANT MANAGER-Csnw Salvador Subramanian, RN Pedro Pablo Higgins RN RN jb4 Len Nielsen MD MD gs Elliott, Andrea RN RN ae4 Corrections: (The following items were deleted from the chart) 11:31 11:07 HEART Score: History: Moderately Suspicious (1), ECG: Normal (0), Age: > 45 and < gs 65 years (1), Risk Factors: 1 or 2 risk factors (1), [Hypertension] Troponin: < or = 1 x Normal Limit (0), 12:33 12:23 08/14/2018 12:23 Discharged to Home. Impression: Chest pain, unspecified. ae4 Condition is Stable. Forms are Medication Reconciliation Form, Thank You Letter, Antibiotic Education, Prescription Opioid Use. Follow up: William Uribe; When: 2 - 3 days; Reason: Re-evaluation by your physician.
[2018-08-14 12:43] VITALS: BP 157/88; O2SAT 99
== END 2018-08-14 12:33 | disposition home or self-care (01) ==
LOC: ER 06:48
DX: R07.9 Chest pain, unspecified (principal); I10 Essential (primary) hypertension; F17.210 Nicotine dependence, cigarettes, uncomplicated; Z79.01 Long term (current) use of anticoagulants; Z88.0 Allergy status to penicillin; Z86.73 Personal history of transient ischemic attack (TIA), and cerebral infarction without residual deficits; Z86.718 Personal history of other venous thrombosis and embolism; Z91.048 Other nonmedicinal substance allergy status
CPT/HCPCS: 36415; 71045; 80048; 80076; 81003; 81025; 83735; 83880; 84484; 85025; 85610; 93005; 99284

== ENCOUNTER 2019-12-30 07:01 | Inpatient (IN) | payer BC, SELFPAY ==
--- OUTSIDE RECORDS SUMMARY | 2019-12-30 07:06 | XMS REPORT | Continuity of Care Document ---
:1970 Author Organization [facility] Care Team Providers Name Role Phone [facility] Unavailable Un available Problems Problem Status Onset Classification Date Comments Sour e Date Reported COPD Active 03/12/20 [facility] [address] EXACERBATION 19 Illness, 03/16/2019 [facility] est unspecified ILLNESS, Active [facility] UNSPECIFIED CHRONIC Active [facility] OBSTRUCTIVE PULMONARY DISEASE W Medications Medication Details Route Status Patient Ordering Order Source Instructions Provider Date methylPREDNISolone Notes: (Same No Longer SODium SUCCinate as:Solu-MEDROL Active 2019 , A-Methapred) amLODIPine 10 mg 10 mg = 1 tab, Active oral tablet PO, Daily, # 2019 [facility] 30 tab, 0 Refill(s), Pharmacy: [facility]/pharmacy #[id number] lisinopril 20 mg 20 mg = 1 tab, Active oral tablet PO, Daily, # 2019 st 30 tab, 0 Refill(s), Pharmacy: [facility]/pharmacy #[id number] albuterol 90 2 puff, Active mcg/inh inhalation INHALATION, 2019 [facility] aerosol QID, PRN as needed for wheezing, # 1 ea, 3 Refill(s), Pharmacy: [facility]/pharmacy #[id number] predniSONE 20 mg 40 mg = 2 tab, Active oral tablet PO, Daily, X 3 2019, # 6 tab, 0 Refill(s), Pharmacy: [facility]/pharmacy #[id number] Symbicort 160/4.5 2 puff, Active inhalation aerosol INHALER, BID, 2019 with adapter # 1 ea, 3 Refill(s), Pharmacy: [facility]/pharmacy #[id number] lisinopril 20 mg 20 mg = 1 tab, Inactive oral tablet PO, Daily, 2019 st 30 tab, 0 Refill(s) amLODIPine 10 mg 10 mg = 1 tab, Inactive oral tablet PO, Daily, # [address] [facility] [address] 30 tab, 0 Refill(s) predniSONE 20 mg 40 mg = 2 tab, Inactive oral tablet PO, Daily, X 3 2019 [facility] day, # 6 tab, 0 Refill(s) Symbicort 160/4.5 2 puff, Inactive inhalation aerosol INHALER, BID, 2019 with adapter # 1 ea, 3 Refill(s) albuterol 90 2 puff, Inactive mcg/inh inhalation INHALATION, 2019 [facility] aerosol QID, PRN as needed for wheezing, # 1 ea, 3 Refill(s) remove patch Notes: Remove Inactive old patch 2019 [facility] before application of new patch. WASTE: F/P - P Waste Black; E - P Waste Black Simethicone Notes: (Same Inactive as: Mylicon) 2019 [facility] Zolpidem tartrate 10 mg = 1 tab, Active 10 MG Oral Tablet PO, Bedtime, 0 2018 [facility] [Ambien] Refill(s) zinc sulfate 220 220 mg = 1 No Longer mg oral capsule cap, PO, Active 2018 [facility] Daily, 0 Refill(s) Sulfamethoxazole amlodipine, No Longer 03/13/ H 800 MG / PO, Q12H, 0 Active 2018 [facility] Trimethoprim 160 Refill(s) MG Oral Tablet Amlodipine PO, Daily, 0 No Longer Refill(s) Active 2018 [facility] Nicotine Notes: (Same No Longer as: Habitrol) Active 2018 [facility] "Remove old patch before application of new patch" WASTE: F/P - P Waste Black; E - P Waste Black Lisinopril Notes: (Same No Longer as: Prinivil, Active 2018 [facility] Zestril) Lisinopril Notes: (Same Inactive as: Prinivil, 2019 [facility] Zestril) Metoprolol Notes: (Same No Longer as: Lopressor) Active 2018 [facility] Push over 2 minutes metoprolol Notes: (Same No Longer tartrate as: Lopressor) Active 2018 [facility] t Reglan Notes: (Same No Longer as: Reglan) Active 2018 [facility] Azithromycin Notes: (Same No Longer As: Zithromax Active 2018 [facility] IV) azithromycin 500 Notes: Take 1 No Longer mg oral tablet hour before or Active 2018 [facility] 2 hours after meals. 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 Zofran Notes: (Same Inactive as: Zofran) 2018 [facility] MEDICATION WASTE Product Size: 4 mg Product Wasted: ___ mg Fentanyl Notes: (Same Inactive as: Sublimaze) 2018 [facility] Preservative free. Magnesium Sulfate Notes: WASTE: Inactive F/P - Sink; E 2018 [facility] - [facility] Tra Bin K-Dur 20 Notes: Inactive pharmacy 2018 [facility] re-entry for product selection (Same as: K-Dur 20) "Do Not Crush" Give with food and full glass of water For patients unable to swallow tablet, dissolve in one half glass of water. Allow about 2 minutes for the tablets to disintegrate. Stir before giving to prepare slurry and administer. Please exclude Patients with feeding tube less than 14 Canadian (Dobhoff, J-tube etc) and pediatric and patients. potassium Notes: (Same Inactive phosphate as: K 2018 [facility] Phosphate.) Do not infuse phosphorous concurrently in the same line as TPN or IVF that contains calcium. For double lumen central lines, phosphorous may be infused in a separate lumen from TPN. 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 For double lumen central lines, phosphorous may be infused in a separate lumen from TPN. 1 mMol phoshate has 1.47 mEq potassium Infuse over 4 hours Sodium Chloride 250 mL, Route: No Longer 0.9% IV IVPB, Start Active 2018 [facility] date: 03/12/19 15:53:00 CAN FILLING MACHINE OPERATOR, Duration: 30 day, Stop date: 04/11/19 15:52:00 CAN FILLING MACHINE OPERATOR, PRN Line Flush, 0 Hydralazine Notes: (Same No Longer as: Active 2018 [facility] Apresoline) Push over 5 minutes Labetalol Notes: (Same No Longer as: Normodyne, Active 2018 [facility] Trandate) Push over 2 minutes Give bolus over 2-3 minutes. methylPREDNISolone Notes: (Same No Longer SODium SUCCinate as:Solu-MEDROL Active 2018 [facility] , A-Methapred) Ondansetron Notes: (Same No Longer as: Zofran) Active 2018 [facility] MEDICATION WASTE Product Size: 4 mg Product Wasted: ___ mg Ipratropium Notes: SEE RT No Longer [place] 0.2 MG/ML DOCUMENTATION Active 2018 [facility] Inhalant Solution (Same as:Atrovent) Ipratropium Notes: SEE RT Inactive [place] 0.2 MG/ML DOCUMENTATION 2019 [facility] Inhalant Solution (Same as:Atrovent) Propranolol Notes: Give Inactive with food. 2019 [facility] (Same as: Inderal) Amlodipine Notes: (Same No Longer as: Norvasc) Active 2018 [facility] Fluoxetine Notes: (Same No Longer as: Prozac, Active 2019 [facility] Sarafem) zolpidem Notes: (Same No Longer As: Ambien) Active 2018 [facility] Albuterol 0.83 Notes: SEE RT No Longer 03/12/ M H MG/ML Inhalant DOCUMENTATION Active 2018 [facility] Solution (Same as: Proventil) potassium Notes: (Same Inactive phosphate as: K 2018 [facility] Phosphate.) Do not infuse phosphorous concurrently in the same line as TPN or IVF that contains calcium. For double lumen central lines, phosphorous may be infused in a separate lumen from TPN. 1 mMol phoshate has 1.47 mEq potassium Infuse over 4 hours Docusate Notes: (Same No Longer as: Colace) Active 2018 [facility] (Do Not Crush) sennosides, CUSTODIAL Notes: (Same No Longer 03/12/ M H as: Senokot) Active 2018 [facility] Saline Flush 0.9% Notes: No Longer preservative Active 2018 [facility] free. Budesonide 0.5 Notes: (Same No Longer MG/ML Inhalant As: Pulmicort) Active 2018 [facility] Solution glucagon 1 mg, Route: No Longer IV, Drug form: Active 2018 [facility] PDR/INJ, PRN, PRN Blood Glucose Results, Start date: 03/12/19 8:43:00 CAN FILLING MACHINE OPERATOR, Duration: 30 day, Stop date: 04/11/19 8:42:00 CAN FILLING MACHINE OPERATOR, 0 Humalog Notes: (Same No Longer as: Humalog) Active 2018 [facility] Roll in palms of hands gently; Do not shake vigorously. WASTE: F/P - Black; E - BrandBacker Trash Bin Stable for 28 days at room temperature. Expires in days from Date Dextrose 50% in 50 mL, Route: No Longer Water IV IVP, Start Active 2018 [facility] date: 03/12/19 8:42:00 CAN FILLING MACHINE OPERATOR, Duration: 30 day, Stop date: 04/11/19 8:41:00 CAN FILLING MACHINE OPERATOR, PRN Blood Glucose Results, 0 Potassium Chloride Notes: (Same Inactive 1.33 MEQ/ML Oral as: K-Dur 20) 2019 [facility] Solution "Do Not Crush" Give with food and full glass of water For patients unable to swallow tablet, dissolve in one half glass of water. Allow about 2 minutes for the tablets to disintegrate. Stir before giving to prepare slurry and administer. Please exclude Patient’ s with feeding tube less than 14 Canadian (Dobhoff, J-tube etc) and pediatric and patients. Albuterol 0.833 Notes: (Same Inactive MG/ML / as: Duoneb) 2018 [facility] Ipratropium [place] 0.167 MG/ML Inhalant Solution [DuoNeb] Potassium Chloride Notes: (Same Inactive as: KCL) 2018 [facility] Infuse no faster than 10 mEq/hr if given peripherally. sodium phosphate Notes: Infuse Inactive over 4 hour. 2018 [facility] Do not infuse phosphorous concurrently in the same line as TPN or IVF that contains calcium. For double lumen central lines, phosphorous may be infused in a separate lumen from TPN. potassium Notes: (Same Inactive phosphate as: K 2018 [facility] Phosphate.) Do not infuse phosphorous concurrently in the same line as TPN or IVF that contains calcium. For double lumen central lines, phosphorous may be infused in a separate lumen from TPN. 1 mMol phoshate has 1.47 mEq potassium Infuse over 4 hours potassium Notes: (Same Inactive phosphate-sodium as: Phos-NaK) 2018 [facility] phosphate 250 Each 1.5 gm mg-280 mg-160 mg pkt has 250mg oral powder for phosphorous. reconstitution Mix w/2.5oz water and stir. Magnesium Sulfate Notes: WASTE: Inactive F/P - Sink; E 2018 [facility] Bin Magnesium Oxide Notes: (Same Inactive as: Mag-Ox 2018 [facility] 400) Magnesium oxide [id number] elemental magnesium Dose=____mg magnesium oxide (___mg elemental magnesium) Calcium Gluconate Notes: WASTE: Inactive F/P - Sink; E 2018 [facility] Bin Calcium Carbonate Notes: (Same Inactive 500 MG Chewable As: Tums) 2018 [facility] Tablet Calcium Carbonate 500 mg = 200 mg elemental calcium Dose = mg calcium carbonate ( mg elemental calcium) Lovenox Notes: Nurse No Longer to ensure Active 2018 [facility] documentation of patient education per anticoagulatio n policy. (Same as: Lovenox) Albuterol 0.83 Notes: SEE RT Inactive MG/ML Inhalant DOCUMENTATION 2018 [facility] Solution (Same as: Proventil) Albuterol 0.833 Notes: (Same Inactive MG/ML / as: Duoneb) 2018 [facility] Ipratropium [place] 0.167 MG/ML Inhalant Solution Saline Flush 0.9% Notes: No Longer preservative Active 2018 [facility] free. Acetaminophen Notes: Do not No Longer exceed 4 Active 2018 [facility] gm/day. (Same as: Tylenol) Solu-Medrol Notes: (Same Inactive as:Solu-MEDROL 2019 [facility] , A-Methapred) Allergies, Adverse Reactions, Alerts Substance Category Reaction Severity Reaction Status Date Comments S ource type Reported penicillins Assertion Penicillin Drug Active G allergy [facility] Benzathine, 300,000 U/ML,Inject ion (systemic), injection iodine Assertion Drug Active topical allergy [facility] Immunizations No Data Provided for This Section Results Order Name Results Value Reference Date Interpretation Comments Johanna rce Range ELECTROLYT AGAP 7.7 10.0 - 03/14 ES 20.0 [facility] ELECTROLYT Glucose Lvl 123 70 - 99 03/14 [facility] ELECTROLYT BUN 28 7 - 22 03/14 [facility] ELECTROLYT Creatinine 1.20 0.50 - 03/14 ES Lvl 1.40 /2019 [facility] ELECTROLYT Sodium Lvl 137 135 - 145 03/14 [facility] ELECTROLYT Potassium 3.7 3.5 - 5.1 03/14 ES Lvl [facility] ELECTROLYT Chloride Lvl 100 95 - 109 03/14 [facility] ELECTROLYT CO2 33 24 - 32 03/14 [facility] ELECTROLYT Calcium Lvl 8.9 8.5 - 10.5 03/14 [facility] ELECTROLYT eGFR 54 03/14 Result Comment: The [facility] eGFR is calculated using the CKD-EPI formula. In most young, healthy individuals the eGFR will be >90 mL/min/1.73m2 . The eGFR declines with age. An eGFR of 60-89 may be normal in some populations, particularly the elderly, for whom the CKD-EPI formula has not been extensively validated. Use of the eGFR is not recommended in the following populations:< br/>
Sandra viduals with unstable creatinine concentration s, including patients and those with serious co-morbid conditions.<b r/>
Patie nts with extremes in muscle mass or diet.

The data above are obtained from the National Kidney Disease Education Program (NKDEP) which additionally recommends that when the eGFR is used in patients with extremes of body mass index for purposes of drug dosing, the eGFR should be multiplied by the estimated BMI. HEMATOLOGY WBC 16.8 3.7 - 10.4 03/14 [facility] HEMATOLOGY RBC 3.63 4.20 - 03/14 MH 5.40 /2019 [facility] HEMATOLOGY Hgb 10.8 12.0 - 03/14 MH 16.0 /2019 [facility] HEMATOLOGY Hct 32.2 36.0 - 03/14 MH 48.0 /2019 [facility] HEMATOLOGY MCV 88.8 80.0 - 03/14 MH 98.0 /2019 [facility] HEMATOLOGY MCH 29.6 27.0 - 03/14 MH 31.0 /2019 [facility] HEMATOLOGY MCHC 33.4 32.0 - 03/14 MH 36.0 /2019 [facility] HEMATOLOGY RDW 15.6 11.5 - 03/14 MH 14.5 /2019 [facility] HEMATOLOGY Platelet 251 133 - 450 03/14 [facility] HEMATOLOGY MPV 8.2 7.4 - 10.4 03/14 [facility] HEMATOLOGY Segs 89.1 45.0 - 03/14 MH 75.0 /2020 [facility] HEMATOLOGY Lymphocytes 7.7 20.0 - 03/14 MH 40.0 /2020 [facility] HEMATOLOGY Monocytes 3.1 2.0 - 12.0 03/14 [facility] HEMATOLOGY Basophils 0.1 0.0 - 1.0 03/14 [facility] HEMATOLOGY Neutrophils 15.0 1.5 - 8.1 / MH # /2020 [facility] HEMATOLOGY Lymphocytes 1.3 1.0 - 5.5 01/ MH # /2020 [facility] HEMATOLOGY Monocytes # 0.5 0.0 - 0.8 03/14 [facility] CHEM PANEL Glucose Lvl 139 70 - 99 03/13 [facility] BUN 16 7 - 22 03/13 [facility] Creatinine 1.20 0.50 - 03/13 MH Lvl 1.40 [facility] CHEM PANEL Sodium Lvl 137 135 - 145 03/13 [facility] CHEM PANEL Potassium 4.0 3.5 - 5.1 03/13 MH Lvl /2018 [facility] CHEM PANEL Chloride Lvl 101 95 - 109 03/13 [facility] CHEM PANEL CO2 29 24 - 32 03/13 [facility] CHEM PANEL AGAP 11.0 10.0 - 03/13 MH 20.0 /2018 [facility] CHEM PANEL Calcium Lvl 9.2 8.5 - 10.5 03/13 [facility] B/C Ratio 13 6 - 25 03/13 [facility] CHE[facility] Total 6.6 6.4 - 8.4 03/13 [facility] CHEM PANEL Albumin Lvl 3.3 3.5 - 5.0 03/13 [facility] Globulin 3.3 2.7 - 4.2 03/13 [facility] A/G Ratio 1.0 0.7 - 1.6 03/13 [facility] CHEM PANEL ALT 56 0 - 65 03/13 [facility] CHE[facility] PAN[facility] AST 26 0 - 37 03/13 [facility] CHEM PANEL Alk Phos 123 39 - 136 03/13 [facility] CHEM PANEL Bili Total 0.7 0.2 - 1.3 03/13 [facility] eGFR 54 03/[facility] Comment: The [facility] eGFR is calculated using the CKD-EPI formula. In most young, healthy individuals the eGFR will be >90 mL/min/1.73m2 . The eGFR declines with age. An eGFR of 60-89 may be normal in some populations, particularly the elderly, for whom the CKD-EPI formula has not been extensively validated. Use of the eGFR is not recommended in the following populations:< br/>
Sandra viduals with unstable creatinine concentration s, including patients and those with serious co-morbid conditions.<b r/>
Patie nts with extremes in muscle mass or diet.

The data above are obtained from the National Kidney Disease Education Program (NKDEP) which additionally recommends that when the eGFR is used in patients with extremes of body mass index for purposes of drug dosing, the eGFR should be multiplied by the estimated BMI. CHEM PANEL Magnesium 2.7 1.8 - 2.4 03/13 Lvl /2018 [facility] CHEM PANEL Phosphorus 6.5 2.5 - 4.5 03/13 [facility] HEMATOLOGY WBC 23.3 3.7 - 10.4 03/13 [facility] HEMATOLOGY RBC 3.78 4.20 - 03/13 MH 5.40 /2018 [facility] HEMATOLOGY Hgb 11.2 12.0 - 03/13 MH 16.0 [facility] Hct 33.5 36.0 - 03/13 MH 48.0 [facility] MCV 88.6 80.0 - 03/13 98.0 [facility] MCH 29.6 27.0 - 03/13 MH 31.0 [facility] MCHC 33.4 32.0 - 03/13 MH 36.0 [facility] RDW 15.1 11.5 - 03/13 14.5 [facility] Platelet 279 133 - 450 03/13 [facility] MPV 7.7 7.4 - 10.4 03/13 [facility] RBC Morph Normal Normal 03/13 (03/13/19 1:50 AM) [facility] HEMATOLOGY Plt Morph Normal Normal 03/13 (03/13/19 1:50 AM) [facility] HEMATOLOGY Segs 90.8 45.0 - 03/13 MH 75.0 [facility] Lymphocytes 6.7 20.0 - 03/13 MH 40.0 [facility] HEMATOLOGY Monocytes 2.5 2.0 - 12.0 03/13 [facility] HEMATOLOGY Eosinophils 0.0 0.0 - 4.0 03/13 [facility] HEMATOLOGY Basophils 0.0 0.0 - 1.0 03/13 [facility] HEMATOLOGY Neutrophils 21.1 1.5 - 8.1 03/13 # [facility] HEMATOLOGY Lymphocytes 1.6 1.0 - 5.5 03/13 MH # /2018 [facility] HEMATOLOGY Monocytes # 0.6 0.0 - 0.8 03/13 [facility] HEMATOLOGY Eosinophils 0.0 0.0 - 0.5 03/13 # /2018 [facility] HEMATOLOGY Basophils # 0.0 0.0 - 0.2 03/13 [facility] PARATHYROI Ca Ion WB 1.10 1.05 - 03/13 D PROFILE 1. [facility] PARATHYROI Ca Norm WB 1.14 1.05 - 03/13 D PROFILE . [facility] Gram Stain Less Than 25 Squamous Epithelial Cells/Lpf Report Rare WBC's [facility] Rare Gram Positive Rods Good Quality Specimen Culture: Few Yeast 03/13 Respiratory Normal Respiratory Alysia [facility] w/Gram Stain CARDIAC Troponin-I 0.13 0.00 - 03/12 ENZYMES 0. [facility] CHEM PANEL Phosphorus 2.6 2.5 - 4.5 03/12 [facility] CHEM PANEL Magnesium 2.5 1.8 - 2.4 03/12 Lvl [facility] CHEM PANEL Glucose Lvl 176 70 - 99 03/12 [facility] CHEM PANEL BUN 10 7 - 22 03/12 [facility] CHEM PANEL Creatinine 1.30 0.50 - 03/12 Lvl 1.40 [facility] CHEM PANEL Sodium Lvl 139 135 - 145 03/12 [facility] CHEM PANEL Potassium 2.2 3.5 - 5.1 03/12 Result Lv Comment: [facility] Critical Result(s) called to Ana at 03/12/2019 16:29 by tali. Read back OK. CHEM PANEL Chloride Lvl 102 95 - 109 03/12 [facility] CHEM PANEL CO2 22 24 - 32 03/12 [facility] CHEM PANEL AGAP 17.2 10.0 - 03/12 MH 20.0 [facility] CHEM PANEL Calcium Lvl 8.6 8.5 - 10.5 03/12 [facility] CHEM PANEL eGFR 49 03/12 Result Comment: The [facility] eGFR is calculated using the CKD-EPI formula. In most young, healthy individuals the eGFR will be >90 mL/min/1.73m2 . The eGFR declines with age. An eGFR of 60-89 may be normal in some populations, particularly the elderly, for whom the CKD-EPI formula has not been extensively validated. Use of the eGFR is not recommended in the following populations:< br/>
Sandra viduals with unstable creatinine concentration s, including patients and those with serious co-morbid conditions.<b r/>
Patie nts with extremes in muscle mass or diet.

The data above are obtained from the National Kidney Disease Education Program (NKDEP) which additionally recommends that when the eGFR is used in patients with extremes of body mass index for purposes of drug dosing, the eGFR should be multiplied by the estimated BMI. CHEM PANEL Procalcitoni <0.05 0.00 - 03/12 n Lvl 0.10 [facility] BACTERIAL MRSA by PCR Negative 03/12 - SEROLOGY (03/12/19 8:32 AM) /2018 [facility] MOLECULAR Source Nasophrngl Swb 03/12 DIAGNOSTIC Respiratory *NA* [facility] Panel PCR (03/12/19 6:09 AM) MOLECULAR Influenza A Negative Negative 03/12 DIAGNOSTIC PCR *NA* [facility] (03/12/19 6:09 AM) MOLECULAR Influenza B Negative Negative 03/12 DIAGNOSTIC PCR *NA* [facility] (03/12/19 6:09 AM) MOLECULAR RSV PCR Negative Negative 03/12 DIAGNOSTIC *NA* [facility] (03/12/19 6:09 AM) CARDIAC Troponin-I 0.08 0.00 - 03/12 ENZYMES 0.40 [facility] CHEM PANEL B/C Ratio 8 6 - 25 03/12 [facility] CHEM PANEL Total 7.3 6.4 - 8.4 03/12 [facility] CHEM PANEL Albumin Lvl 3.6 3.5 - 5.0 03/12 [facility] CHEM PANEL Globulin 3.7 2.7 - 4.2 03/12 [facility] CHEM PANEL A/G Ratio 1.0 0.7 - 1.6 03/12 [facility] CHEM PANEL ALT 67 0 - 65 03/12 [facility] CHEM PANEL AST 29 0 - 37 03/12 [facility] CHEM PANEL Alk Phos 138 39 - 136 03/12 [facility] CHEM PANEL Bili Total 0.5 0.2 - 1.3 03/12 [facility] CHEM PANEL Magnesium 2.4 1.8 - 2.4 03/12 Lvl /2018 [facility] CHEM PANEL Phosphorus 2.4 2.5 - 4.5 03/12 [facility] HEMATOLOGY WBC 13.8 3.7 - 10.4 03/12 [facility] HEMATOLOGY RBC 3.99 4.20 - 03/12 MH 5.40 /2019 [facility] HEMATOLOGY Hgb 11.8 12.0 - 03/12 MH 16.0 [facility] HEMATOLOGY Hct 35.0 36.0 - 03/12 MH 48.0 [facility] HEMATOLOGY MCV 87.7 80.0 - 03/12 MH 98.0 /2018 [facility] MCH 29.6 27.0 - 03/12 MH 31.0 [facility] MCHC 33.7 32.0 - 03/12 MH 36.0 [facility] HEMATOLOGY RDW 15.0 11.5 - 03/12 MH 14.5 [facility] Platelet 252 133 - 450 03/12 [facility] HEMATOLOGY MPV 7.8 7.4 - 10.4 03/12 [facility] HEMATOLOGY Segs 92.7 45.0 - 03/12 MH 75.0 /2018 [facility] Lymphocytes 5.9 20.0 - 03/12 MH 40.0 [facility] HEMATOLOGY Monocytes 1.0 2.0 - 12.0 03/12 [facility] HEMATOLOGY Basophils 0.4 0.0 - 1.0 03/12 [facility] HEMATOLOGY Neutrophils 12.8 1.5 - 8.1 03/12 # /2018 [facility] HEMATOLOGY Lymphocytes 0.8 1.0 - 5.5 03/12 # [facility] HEMATOLOGY Monocytes # 0.1 0.0 - 0.8 03/12 [facility] HEMATOLOGY Basophils # 0.1 0.0 - 0.2 03/12 [facility] PARATHYROI Ca Ion WB 1.07 1.05 - 03/12 MH D PROFILE . [facility] PARATHYROI Ca Norm WB 1.06 1.05 - 03/12 MH D PROFILE . [facility] SPECIAL Hgb A1C 5.3 <=5.6 % 03/12 CHEMISTRY [facility] Pathology Reports No Data Provided for This Section Diagnostic Reports Report Value Date Source Abdomen AP DX PROCEDURE INFORMATION: 03/13/2019 [facility] est Exam: XR Abdomen, 1 View Exam date and time: 03/13/2019 9:01 AM Age: 48 years old Clinical indication: Distended/distended TECHNIQUE: Imaging protocol: XR of the abdomen. Views: Frontal supine view of the abdomen. 1 Vie w. COMPARISON: No relevant prior studies available . Findings: Nonobstructive bow el gas pattern. No pneumatosis or pneumoperitoneum. No pathologic calcification. No destructive osseous lesion. The visualized lung bases are unremarkable. No acute osseous abnorma lity. Impression: 1. Nonobstructive bowel gas pattern. Eric Tang MD On 03/13/2019 09:40:44; [facility] [id number] Chest 1view DX PROCEDURE INFORMATION: 03/12/2019 [facility] est Exam: XR Chest, 1 View Exam date and time: 03/12/2019 5:12 AM Age: 48 years old Clinical indication: Dyspnea; Additional info: D yspnea/hx of copd TECHNIQUE: Imaging protocol: XR of the chest Views: 1 view. COMPARISON: No relevant prior studies available. FINDINGS: Lungs: Lung volumes are maintained. There are no infiltrates. Pleural space: There are no effusions or pneumot horaces noted. Heart/Mediastinum: The cardiac silhouette is nor mal in caliber. The aorta is unremarkable. Bones/joints: Unremarkable. IMPRESSION: No acute cardiopulmonary findings. Madison Sotelo MD On 03/12/2019 06:33:15; -[facility] [id number] Consultation Notes No Data Provided for This Section Discharge Summaries No Data Provided for This Section History and Physicals No Data Provided for This Section Vital Signs Vital Sign Value Date Comments Source Temperature Oral (F) 97.5 F 03[facility]14[facility] Rate 91 03/14/2019 [facility] Respitory Rate 20 03/14/2019 [facility] Systolic (mm Hg) 129 03/14/2019 [facility] Diastolic (mm Hg) 75 03/14/[address] [facility] [address] Temperature Oral (F) 97.8 F 03/14/2019 [facility] Heart Rate 93 03/14/2019 [facility] Respitory Rate 20 03/14/2019 [facility] Systolic (mm Hg) 126 03/14/2019 [facility] Diastolic (mm Hg) 77 03/14/[address] [facility] [address] Temperature Oral (F) 97.8 F 03/14/2019 [facility] Heart Rate 97 03/14/2019 [facility] Respitory Rate 18 03/14/2019 [facility] Systolic (mm Hg) 134 03/14/2019 [facility] Diastolic (mm Hg) 75 03/14/[address] [facility] [address] Height 175.26 cm 03/12/2019 [facility] Weight 111.4 03/12/2019 [facility] BMI Calculated 36.27 03/12/2019 [facility] Encounters Location Location Encounter Encounter Reason Attending ADM DC Stat us Source Details Type Number For Provider Date Date Visit [facility] Inpatient [id number] Nehemias 03/12 03/14 Steve Leonard /2018 [facility] Procedures No Data Provided for This Section Assessment and Plan Assessment and Plan Date Source Extracted from:Title: Work excuse 03/14/2019 Johanna weathers Author: Dilan Redding MD Date: 03/14/19 To Whom It May Concern KENDALLSTACYMY [id number] 00:00 For Medical reasons, please excuse OLIVIA Heidy MANA M / 1970 00:00 from work for the following dates: Start: 03/12/2019 End: 03/14/2019 patient may return to work on 03/19/2018 If you need additional information, please feel free to cont act our office. Sincerely, Dilan Redding MD. [facility] Inpatient Hospitalist. . Plan of Care No Data Provided for This Section Social History Social History Date Source Social History TypeResponse 03/12/2019 [facility] Alcohol Never Substance Abuse Use: None. Smoking Status Current every day smoker; Type: Cigarett es; Exposure to Tobacco Smoke Unable to obtain; Cigarette Smoking Last 365 Days Yes; Reg Smoking Cessation Counseling Yes; Tobacco use per day: 5; Number of years: 13; entered on: 03/12/19 Family History No Data Provided for This Section Advance Directives No Data Provided for This Section Functional Status No Data Provided for This Section
--- OUTSIDE RECORDS SUMMARY | 2019-12-30 07:07 | XMS REPORT | Continuity of Care Document ---
:1970 Author Organization [facility] t Address [address] [place] [address] Care Team Providers Name Role Phone Mujeeb Attending Clinician Muadityaeb Admitting Clinician Problems Condition Condition Condition Status Onset Resolution Last Treating Co mments Source Name Details Category Date Date Treatment Clinician Date COPD Diagnosis Active 2018-032019-03-19 Mem oria EXACERBATI -30 21:56:00 l ON COPD 00:00: [place] EXACERBATI 00 ON Active 9 [facility] Illness, Problem 2019-03-16 Mem oria unspecifie 22:50:06 l d Illness, Livan n unspecifie d 03/16/2019 [place] ILLNESS, Diagnosis Active 2019-03-14 M emoria UNSPECIFIE 02:23:00 l D ILLNESS, Livan n UNSPECIFIE D Active [facility] CHRONIC Diagnosis Active 2019-03-19 Me moria OBSTRUCTIV 21:56:00 l E CHRONIC Steve PULMONARY OBSTRUCTIV DISEASE W E PULMONARY DISEASE W Active [facility] Allergies, Adverse Reactions, Alerts Allergy Allergy Status Severity Reaction(s) Onset Inactive Treating Comm ents Source Name Type Date Date Clinician penicill penicill Active Memori a ins ins l Steve iodine iodine Active Memoria topical topical l Steve Social History Social Habit Start Date Stop Date Quantity Comments Source Social History 2019-03-12 2019-03-12 Blanca hidalgo 11:53:59 11:53:59 Medications Ordered Filled Start Stop Current Ordering Indication Dosage Frequency Signature Comments Components Source Medication Medication Date Date Medication? Clinician (SIG) Name Name methylPREDN No Notes: Errol deon ISolone 03-15 (Same l SODium 22:00: as:Solu-ME Kimberly nn SUCCinate 00 DROL, A-Methapre d) amLODIPine 2020-0 Yes 10 mg = 1 Me moria 10 mg oral 1-01 tab, PO, l tablet 21:21: Daily, # [place] 11 30 tab, 0 Refill(s), Pharmacy: [id number] lisinopril 2020-0 Yes 20 mg = 1 Me moria 20 mg oral 1-01 tab, PO, l tablet 21:21: Daily, # [place] 08 30 tab, 0 Refill(s), Pharmacy: [id number] albuterol 2020-0 Yes 2 puff, Memor ia 90 mcg/inh 1-01 INHALATION l inhalation 21:20: , QID, PRN H ermann aerosol 54 as needed for wheezing, # 1 ea, 3 Refill(s), Pharmacy: [id number] predniSONE 2020-0 Yes 40 mg = 2 Me moria 20 mg oral 1-01 tab, PO, l tablet 21:20: Daily, X 3 Kimberly nn 51 day, # 6 tab, 0 Refill(s), Pharmacy: [id number] Symbicort 2020-0 Yes 2 puff, Memor ia 160/4.5 03-14 INHALER, l inhalation 21:20: BID, # 1 Her castillo aerosol 45 ea, 3 with Refill(s), adapter Pharmacy: [id number] lisinopril 2020-0 No 20 mg = 1 Me moria 20 mg oral 1-01 tab, PO, l tablet 20:21: Daily, # Steve 00 30 tab, 0 Refill(s) amLODIPine 2020-0 No 10 mg = 1 Me moria 10 mg oral 1-01 tab, PO, l tablet 20:21: Daily, # [place] 00 30 tab, 0 Refill(s) predniSONE 2020-0 No 40 mg = 2 Me moria 20 mg oral 1-01 tab, PO, l tablet 20:21: Daily, X 3 Kimberly nn 00 day, # 6 tab, 0 Refill(s) Symbicort 2020-0 No 2 puff, Memor ia 160/4.5 01 INHALER, l inhalation 20:21: BID, # 1 Her castillo aerosol 00 ea, 3 with Refill(s) adapter albuterol 2020-0 No 2 puff, Memor ia 90 mcg/inh 1-01 INHALATION l inhalation 20:21: , QID, PRN H ermann aerosol 00 as needed for wheezing, # 1 ea, 3 Refill(s) remove No Notes: Memoria patch 03-14 Remove old l 14:59: patch [place] 00 before applicatio n of new patch. WASTE: F/P - P Waste Black; E - P Waste Black Simethicone No Notes: Errol deon - (Same as: l 10:41: Mylicon) Zolpidem 2018-03 Yes 10 mg = 1 Errol deon tartrate 10 2-31 tab, PO, l MG Oral 19:55: Bedtime, 0 Herm abran Tablet 00 Refill(s) [Ambien] zinc 2018-03 No 220 mg = 1 Memoria sulfate 220 2 cap, PO, l mg oral 19:51: Daily, 0 Livan n capsule 00 Refill(s) Sulfamethox 2018-03 No amlodipine Memoria azole 800 2- , PO, l MG / 19:51: Q12H, 0 Steve Trimethopri 00 Refill(s) m 160 MG Oral Tablet Amlodipine 2018-03 No PO, Daily, M emoria 2-31 0 l 19:51: Refill(s) Nicotine 2018-03 No Notes: Memoria 2-31 (Same as: l 16:30: Habitrol) "Remove old patch before applicatio n of new patch" WASTE: F/P - P Waste Black; E - P Waste Black Lisinopril 2018-03 No Notes: Memor ia 2-31 (Same as: l 16:12: Prinivil, Steve 00 Zestril) Lisinopril 2018-03 No Notes: Memor ia 2-31 (Same as: l 15:32: Prinivil, Steve 00 Zestril) Metoprolol 2018-03 No Notes: Memor ia 2-31 (Same as: l 15:31: Lopressor) Push over 2 minutes metoprolol 2018-03 No Notes: Memor ia tartrate 2-31 (Same as: l 15:29: Lopressor) Reglan 2018-03 No Notes: Memoria 2-31 (Same as: l 15:27: Reglan) Steve 00 Azithromyci 2018-03 No Notes: Errol deon n 2-31 (Same As: l 15:00: Zithromax [place] 00 IV) azithromyci 2018-03 No Notes: Errol deon n 500 mg 2-31 Take 1 l oral tablet 15:00: hour Livan n 00 before or 2 hours after meals. (Same As: Zithromax) Zofran 2018-03 No Notes: Memoria 2-31 (Same as: l 14:44: Zofran) Steve 00 MEDICATION WASTE Product Size: 4 mg Product Wasted: ___ mg Zofran 2018-03 No 4 mg, Memoria 2-31 Route: l 13:46: IVP, Drug form: INJ, Q8H, Dosing Weight 111.4, kg, PRN Nausea, Start date: 03/13/19 7:46:00 ROTARY KILN OPERATOR, Duration: 30 day, Stop date: 04/12/19 7:45:00 ROTARY KILN OPERATOR metoprolol 2018-03 No Notes: Memor ia tartrate 2- (Same as: l 03:00: Lopressor) Steve 00 Sublimaze 2018-03 No Notes: Memori a 2-31 (Same as: l 02:25: Sublimaze) Preservat arian free. Zofran 2018-03 No Notes: Memoria 2-31 (Same as: l 02:15: Zofran) MEDICATION WASTE Product Size: 4 mg Product Wasted: ___ mg Fentanyl 2018-03 No Notes: Memoria 2-31 (Same as: l 02:15: Sublimaze) Preservat arian free. Magnesium 2018-03 No Notes: Memori a Sulfate -30 WASTE: F/P l 23:08: - Sink; [facility] No Notes: Memoria 2-30 pharmacy l 23:00: re-entry for product selection (Same as: ) "Do Not Crush" Give with food and full glass of water For patients unable to swallow tablet, dissolve in one half glass of water. Allow about 2 minutes for the tablets to disintegra te. Stir before giving to prepare slurry and administer . Please exclude Patient s with feeding tube less than 14 Montenegr[place] (Dobhoff, J-tube etc) and pediatric and patients. potassium 2018-03 No Notes: Memori a phosphate 2-30 (Same as: l 22:55: K Steve 00 Phosphate. ) Do not infuse phosphorou s concurrent ly in the same line as TPN or IVF that contains calcium. For double lumen central lines, phosphorou s may be infused in a separate lumen from TPN. 1 mMol phoshate has 1.47 mEq potassium Infuse over 4 hours Potassium 2018-03 No 60 mEq, Memor ia Chloride 2-30 Route: PO, l 1.33 MEQ/ML 22:46: Drug form: Steve Oral 00 LIQ, ONCE, Solution Dosing Weight 111.4, kg, Priority: STAT, Start date: 03/12/19 16:46:00 ROTARY KILN OPERATOR, Stop date: 03/12/19 16:46:00 ROTARY KILN OPERATOR potassium 2018-03 No Notes: Memori a phosphate 2-30 (Same as: l 22:46: K [place] 00 Phosphate. ) Do not infuse phosphorou s concurrent ly in the same line as TPN or IVF that contains calcium. For double lumen central lines, phosphorou s may be infused in a separate lumen from TPN. 1 mMol phoshate has 1.47 mEq potassium Infuse over 4 hours Sodium 2018-03 No 250 mL, Memoria Chloride 2-30 Route: l 0.9% IV 21:53: IVPB, Start date: 03/12/19 15:53:00 ROTARY KILN OPERATOR, Duration: 30 day, Stop date: 04/11/19 15:52:00 ROTARY KILN OPERATOR, PRN Line Flush, 0 Hydralazine 2018-03 No Notes: Errol deon 2-30 (Same as: l 20:58: Apresoline ) Push over 5 minutes Labetalol 2018-03 No Notes: Memori a 2-30 (Same as: l 20:58: Normodyne, [place] Trandate) Push over 2 minutes Give bolus over 2-3 minutes. methylPREDN 2018-03 No Notes: Errol deon ISolone 2-30 (Same l SODium 20:58: as:Solu-ME Kimberly nn SUCCinate 00 DROL, A-Methapre d) Ondansetron 2018-03 No Notes: Errol deon 2-30 (Same as: l 18:22: Zofran) MEDICATION WASTE Product Size: 4 mg Product Wasted: ___ mg Ipratropium 2018-03 No Notes: SEE Memoria [place] 0.2 2-30 RT l MG/ML 18:00: DOCUMENTAT Livan n Inhalant 00 ION (Same Solution as:Atroven t) Ipratropium 2018-03 No Notes: SEE Memoria [place] 0.2 2-30 RT l MG/ML 17:00: DOCUMENTAT Livan n Inhalant 00 ION (Same Solution as:Atroven t) Propranolol 2018-03 No Notes: Errol deon 2-30 Give with l 16:23: food. (Same as: Inderal) Amlodipine 2018-03 No Notes: Memor ia 2-30 (Same as: l 16:23: Norvasc) Fluoxetine 2018-03 No Notes: Memor ia 2-30 (Same as: l 16:23: Prozac, Sarafem) zolpidem 2018-03 No Notes: Memoria 2-30 (Same As: l 16:23: Ambien) Albuterol 2018-03 No Notes: SEE Me moria 0.83 MG/ML 2-30 RT l Inhalant 15:16: DOCUMENTAT Her castillo Solution 00 ION (Same as: Proventil) potassium 2018-03 No Notes: Memori a phosphate 2-30 (Same as: l 15:07: K Phosphate. ) Do not infuse phosphorou s concurrent ly in the same line as TPN or IVF that contains calcium. For double lumen central lines, phosphorou s may be infused in a separate lumen from TPN. 1 mMol phoshate has 1.47 mEq potassium Infuse over 4 hours Docusate 2018-03 No Notes: Memoria 2-30 (Same as: l 15:00: Colace) (Do Not Crush) sennosides, 2018-03 No Notes: Errol deon SNF 2-30 (Same as: l 15:00: Senokot) Saline 2018-03 No Notes: Memoria Flush 0.9% 2-30 preservati l 15:00: ve free. Budesonide 2018-03 No Notes: Memor ia 0.5 MG/ML 2-30 (Same As: l Inhalant 14:54: Pulmicort) Her castillo Solution 00 glucagon 2018-03 No 1 mg, Memoria 2-30 Route: IV, l 14:43: Drug form: [place] 00 PDR/INJ, PRN, PRN Blood Glucose Results, Start date: 03/12/19 8:43:00 ROTARY KILN OPERATOR, Duration: 30 day, Stop date: 04/11/19 8:42:00 ROTARY KILN OPERATOR, 0 Humalog 2018-03 No Notes: Memoria 2-30 (Same as: l 14:42: Humalog) Steve 00 Roll in palms of hands gently; Do not shake vigorously . WASTE: F/P - Black; E - Municipal Trash Bin Stable for 28 days at room temperatur e. Expires in days from ____Date Dextrose 2018-03 No 50 mL, Memoria 50% in 2-30 Route: l Water IV 14:42: IVP, Start Her acstillo 00 date: 03/12/19 8:42:00 ROTARY KILN OPERATOR, Duration: 30 day, Stop date: 04/11/19 8:41:00 ROTARY KILN OPERATOR, PRN Blood Glucose Results, 0 Potassium 2018-03 No Notes: Memori a Chloride 2-30 (Same as: l 1.33 MEQ/ML 13:20: K-Dur 20) H ermann Oral 00 "Do Not Solution Crush" Give with food and full glass of water For patients unable to swallow tablet, dissolve in one half glass of water. Allow about 2 minutes for the tablets to disintegra te. Stir before giving to prepare slurry and administer . Please exclude Patient s with feeding tube less than 14 Montenegr[place] (Dobhoff, J-tube etc) and pediatric and patients. Albuterol 2018- No Notes: Memori a 0.833 MG/ML 2-30 (Same as: l / 13:00: Duoneb) Steve Ipratropium 00 [place] 0.167 MG/ML Inhalant Solution [DuoNeb] Potassium 2018-03 No Notes: Memori a Chloride 2-30 (Same as: l 12:16: KCL) [place] 00 Infuse no faster than 10 mEq/hr if given peripheral ly. sodium 2018-1 No Notes: Memoria phosphate 2-30 Infuse l 12:16: over 4 Steve 00 hour. Do not infuse phosphorou s concurrent ly in the same line as TPN or IVF that contains calcium. For double lumen central lines, phosphorou s may be infused in a separate lumen from TPN. potassium 2018-03 No Notes: Memori a phosphate 2-30 (Same as: l 12:16: K Steve 00 Phosphate. ) Do not infuse phosphorou s concurrent ly in the same line as TPN or IVF that contains calcium. For double lumen central lines, phosphorou s may be infused in a separate lumen from TPN. 1 mMol phoshate has 1.47 mEq potassium Infuse over 4 hours potassium 2018-03 No Notes: Memori a phosphate-s 2-30 (Same as: l odium 12:16: Phos-NaK) Steve phosphate 00 Each 1.5 250 mg-280 gm pkt has mg-160 mg 250mg oral powder phosphorou for s. Mix reconstitut w/2.5oz ion water and stir. Magnesium 2018-03 No Notes: Memori a Sulfate 2-30 WASTE: F/P l 12:16: - Sink; E Steve 00 - Municipal Trash Bin Magnesium 2018-03 No Notes: Memori a Oxide 2-30 (Same as: l 12:16: Mag-Ox Steve 00 400) Magnesium oxide 960zd=316l g elemental magnesium Dose=____m g magnesium oxide (___mg elemental magnesium) Calcium 2018-03 No Notes: Memoria Gluconate 2-30 WASTE: F/P l 12:16: - Sink; E [place] 00 - Municipal Trash Bin Calcium 2018-03 No Notes: Memoria Carbonate 2-30 (Same As: l 500 MG 12:16: Tums) [place] Chewable 00 Calcium Tablet Carbonate 500 mg = 200 mg elemental calcium Dose = mg calcium carbonate ( mg elemental calcium) Lovenox 2018-03 No Notes: Memoria 2-30 Nurse to l 12:00: ensure Steve 00 documentat ion of patient education per anticoagul ation policy. (Same as: Lovenox) Albuterol 2018-03 No Notes: SEE Me moria 0.83 MG/ML 2-30 RT l Inhalant 11:39: DOCUMENTAT Her castillo Solution 00 ION (Same as: Proventil) Albuterol 2018-03 No Notes: Memori a 0.833 MG/ML 2-30 (Same as: l / 11:35: Duoneb) Steve Ipratropium 00 [place] 0.167 MG/ML Inhalant Solution Saline 2018-03 No Notes: Memoria Flush 0.9% 2-30 preservati l 11:35: ve free. [place] 00 Acetaminoph 2018-03 No Notes: Do M emoria en 2-30 not exceed l 11:34: 4 gm/day. Steve 00 (Same as: Tylenol) Solu-Medrol 2018-03 No Notes: Errol deon -30 (Same l 11:16: as:Solu-ME [place] 00 DROL, A-Methapre d) Vital Signs Vital Name Observation Time Observation Value Comments Source Temperature Oral (F) 2019-03-14 18:00:00 97.5 F [facility] Steve Heart Rate 2019-03-14 18:00:00 [facility] Steve Respitory Rate 2019-03-14 18:00:00 Memori al Steve Systolic (mm Hg) 2019-03-14 18:00:00 Errol rial [place] Diastolic (mm Hg) 2019-03-14 18:00:00 Mem orial Steve Temperature Oral (F) 2019-03-14 14:00:00 97.8 F [facility] Steve Heart Rate 2019-03-14 14:00:00 [facility] [place] Respitory Rate 2019-03-14 14:00:00 Memori al Steve Systolic (mm Hg) 2019-03-14 14:00:00 Errol rial [place] Diastolic (mm Hg) 2019-03-14 14:00:00 Mem orial Steve Temperature Oral (F) 2019-03-14 02:10:00 97.8 F [facility] [place] Heart Rate 2019-03-14 02:10:00 [facility] [place] Respitory Rate 2019-03-14 02:10:00 Memori al [place] Systolic (mm Hg) 2019-03-14 02:10:00 Errol rial [place] Diastolic (mm Hg) 2019-03-14 02:10:00 Mem orial [place] Height 2019-03-12 11:55:00 175.26 cm [facility] [place] Weight 2019-03-12 11:55:00 [facility] Steve BMI Calculated 2019-03-12 11:55:00 Memori al Steve Procedures This patient has no known procedures. Encounters Start End Encounter Admission Attending Care Care Encounter Source Date/Time Date/Time Type Type Clinicians Facility Department ID 2019-03-12 Inpatient [facility] [id number] [facility] W 05:10:00 2019-03-12 2019-03-14 Outpatient Aisha [facility] [id number] 05:10:00 17:08:00 Lizbeth 64 Results Test Description Test Time Test Comments Results Result Comments Source ELECTROLYTES 2019-03-14 7.7 [facility] Her castillo 10:10:00 ELECTROLYTES 2019-03-14 123 [facility] Her castillo 10:10:00 ELECTROLYTES 2019-03-14 28 [facility] Her castillo 10:10:00 ELECTROLYTES 2019-03-14 1.20 [facility] Her castillo 10:10:00 ELECTROLYTES 2019-03-14 137 [facility] Her castillo 10:10:00 ELECTROLYTES 2019-03-14 3.7 [facility] Her castillo 10:10:00 ELECTROLYTES 2019-03-14 100 [facility] Her castillo 10:10:00 ELECTROLYTES 2019-03-14 33 [facility] Her castillo 10:10:00 ELECTROLYTES 2019-03-14 8.9 [facility] Her castillo 10:10:00 ELECTROLYTES 2019-03-14 54 [facility] Her castillo 10:10:00 HEMATOLOGY 2019-03-14 16.8 [facility] Kimberly nn 10:10:00 HEMATOLOGY 2019-03-14 3.63 [facility] Kimberly nn 10:10:00 HEMATOLOGY 2019-03-14 10.8 [facility] Kimberly nn 10:10:00 HEMATOLOGY 2019-03-14 32.2 [facility] Kimberly nn 10:10:00 HEMATOLOGY 2019-03-14 88.8 [facility] Kimberly nn 10:10:00 HEMATOLOGY 2019-03-14 10:10:00 Test Item Value Reference Range Interpretation Comme nts MCH (test code = MCH) 29.6 pg 27.0-31.0 [facility] FjnlpdpMQKYOQKTTE0569-49-00 10:10:0033.4[facility] HermannHEMATOLOGY 2019-03-14 10:10:0015.6[facility] WxiojsuVJONGYTTLY8005-86-70 10:10:84741Aodaphos ZnskvbsVUDIRMPYOS5771-47-57 10:10:008.2[facility] XzqqphxUMBDRVDCHQ3682-05-13 10:10:0089.1[facility] YzrrfkfPSXNCRLUDZ7718-87-70 10:10:007.7[facility] [place] BSJWWQFCSX6643-96-59 10:10:003.1[facility] SlfbznsGBNBXOWMPG4487-76-01 10:10:000.1 [facility] XxuujqjOOVQHKVVDK2362-90-51 10:10:0015.0[facility] HermannHEMATOLOGY 2019-03-14 10:10:001.3[facility] VqmlekeGYGEONDVNY5708-74-39 10:10:000.5[facility] HermannCHEM MFVTJ9917-45-03 07:50:41399Ulunoakf HermannCHEM EEKJW9805-02-93 07:50:0016[facility] HermannCHEM FVGIH4756-98-87 07:50:001.20[facility] HermannCHEM KIBMC6683-30-72 07:50:66644Kouepbmq HermannCHEM HFJNQ9039-83-12 07:50:004.0 [facility]annCHEM KOMKH1737-65-72 07:50:80641Kwjumiqk HermannCHEM PANEL 2019-03-13 07:50:0029[facility] HermannCHEM JRXBC1465-78-46 07:50:0011.0[facility] HermannCHEM KBOSD3089-44-69 07:50:009.2[facility] HermannCHEM UHDZN5174-71-79 07:50:00 Test Item Value Reference Range Interpretation Comments B/C Ratio (test code = B/C Ratio) 13 1 6-25 [facility]annCHEM YMYFV0660-46-22 07:50:006.6[facility] HermannCHEM PANEL 2019-03-13 07:50:003.3[facility] HermannCHEM YETPH9510-31-15 07:50:003.3[facility] HermannCHEM [id number] 07:50:00 Test Item Value Reference Range Interpretation Comments A/G Ratio (test code = A/G Ratio) 1.0 1 0.7-1.6 [facility]annCHEM VUPML9939-06-76 07:50:0056[facility] HermannCHEM PANEL 2019-03-13 07:50:0026[facility] HermannCHEM AHYYI0917-61-35 07:50:76230Hxauahhn HermannCHEM GKIVV1278-57-16 07:50:000.7[facility] HermannCHEM PMDJQ9581-05-73 07:50:0054[facility] HermannCHEM VLOKA0792-05-38 07:50:002.7[facility] HermannCHEM QSCNH7041-10-17 07:50:006.5[facility] BlprcxqDMECRBNDIB0672-61-90 07:50:0023.3 [facility] DvjdyezQDKIRVKXRX8991-76-63 07:50:003.78[facility] HermannHEMATOLOGY 2019-03-13 07:50:0011.2[facility] DomaushOKXCQZNFOP0498-25-09 07:50:0033.5[facility] VcxhpqyTQWVJKJMVE0570-93-08 07:50:0088.6[facility] KwvilgaULVWVDCRNO3103-63-20 07:50:00 Test Item Value Reference Range Interpretation Comments MCH (test code = MCH) 29.6 pg 27.0-31.0 [facility] JnxuhhtCQLSLYVRQV5601-09-50 07:50:0033.4[facility] HermannHEMATOLOGY 2019-03-13 07:50:0015.1[facility] ZlyvwujYVYSRDZEMG0526-18-84 07:50:44250Fkrmmyyu YwxcgqyALQEQWWTEL2772-25-67 07:50:007.7[facility] MbuzlseEUUJWZMJIS4342-27-95 07:50:00Normal (03/13/19 1:50 AM)[facility] RwsrnatFQJNMQJIAB7087-95-43 07:50:00 Normal (03/13/19 1:50 AM)[facility] BtbvomdRNKHUTSOKW4892-38-91 07:50:0090.8 [facility] PezfiwzUFPPRVKHVW9400-20-77 07:50:006.7[facility] HermannHEMATOLOGY 2019-03-13 07:50:002.5[facility] SixvartNTTTCKXCVK4442-65-26 07:50:000.0[facility] GbxlaqyDMOCVIZFPY5359-19-30 07:50:000.0[facility] ZbmcrenGTLNOZZEBB2780-11-29 07:50:0021.1[facility] IvmlxwrMLTKEINVYF5626-47-71 07:50:001.6[facility] Steve PRHRBUWFSF6054-83-53 07:50:000.6[facility] EzdghmyQBEMYBMUVF0216-50-67 07:50:000.0 [facility] GewzhcnWPDAEZAGFO5036-93-91 07:50:000.0[facility] HermannPARATHYROID DHMQWPP5293-85-29 07:50:001.10[facility] HermannPARATHYROID SHYRRBK6259-14-71 07:50:001.14[facility] HermannCARDIAC CJLRWND2262-12-34 18:48:000.13[facility] HermannCHEM COGNJ1077-64-13 18:48:002.6[facility] HermannCHEM MZOBL1892-97-30 18:48:002.5[facility] HermannCHEM DJXDK0413-41-77 18:48:90763Avrahyye HermannCHEM EPRWE0966-40-39 18:48:0010[facility] HermannCHEM XSGYI9467-28-34 18:48:001.30 [facility]annCHEM ESJMT2930-02-41 18:48:43201Kgtirvxe HermannCHEM PANEL 2019-03-12 18:48:002.2[facility] HermannCHEM STSAQ0344-74-54 18:48:06229Ojinodpp HermannCHEM IMLOC3761-23-59 18:48:0022[facility] HermannCHEM MRYEF7573-92-65 18:48:0017.2[facility] HermannCHEM VGZVE1513-81-60 18:48:008.6[facility] HermannCHEM MSQBA4929-42-21 18:48:0049[facility] HermannCHEM VUEDD2958-77-46 18:48:00<0.05 [facility] HermannBACTERIAL - SZBEWRZE1433-87-05 14:32:00Negative (03/12/19 8:32 AM)[facility] HermannMOLECULAR SYNIZQNFWG0585-45-53 12:09:00Nasophrngl Swb *NA*(03/12/19 6:09 AM)[facility] HermannMOLECULAR LBHHPDXKTA6643-00-60 12:09:00 Negative *NA*(03/12/19 6:09 AM)[facility] HermannMOLECULAR VZEWFBEQWR3318-08-05 12:09:00Negative *NA*(03/12/19 6:09 AM)[facility] HermannMOLECULAR DIAGNOSTIC 2019-03-12 12:09:00Negative *NA*(03/12/19 6:09 AM)[facility] HermannCARDIAC FTJLBMI6307-33-13 11:32:000.08[facility] HermannCHEM YQUXA3820-09-14 11:32:00 Test Item Value Reference Range Interpretation Comments B/C Ratio (test code = B/C Ratio) 8 1 6-25 [facility]annCHEM JMJJD2487-41-21 11:32:007.3[facility] HermannCHEM PANEL 2019-03-12 11:32:003.6[facility] HermannCHEM TSTGP5430-24-75 11:32:003.7[facility] HermannCHEM KRPOB6628-96-27 11:32:00 Test Item Value Reference Range Interpretation Comments A/G Ratio (test code = A/G Ratio) 1.0 1 0.7-1.6 [facility]annCHEM QJRDK1019-53-87 11:32:0067[facility] HermannCHEM PANEL 2019-03-12 11:32:0029[facility] HermannCHEM YDJTU5779-69-12 11:32:23526Oavdckdz HermannCHEM NFIHY5811-00-16 11:32:000.5[facility] HermannCHEM GXASL8170-50-28 11:32:002.4[facility] HermannCHEM LKYLG8381-26-00 11:32:002.4[facility] [place] VOETLHPJNK4333-57-00 11:32:0013.8[facility] MhszzexDFTTPKTDFI1256-29-91 11:32:00 3.99[facility] NmxxgjpEQQGHMQSBB8530-24-53 11:32:0011.8[facility] HermannHEMATOLOGY 2019-03-12 11:32:0035.0[facility] XajaywnADIXGIDZLR2276-39-86 11:32:0087.7[facility] HtcwshsHSBDQPKCYK2861-32-27 11:32:00 Test Item Value Reference Range Interpretation Comments MCH (test code = MCH) 29.6 pg 27.0-31.0 [facility] KavsqwdVXIUDWGBXR8768-63-26 11:32:0033.7[facility] HermannHEMATOLOGY 2019-03-12 11:32:0015.0[facility] GjmxxtxJAQMNGFZPF0831-34-82 11:32:11728Dxtqjeha BaulmbwVAATYAKPSR1236-54-59 11:32:007.8[facility] TvdeervRSFIMTPTPZ7078-02-98 11:32:0092.7[facility] GicpuguWFQJDGKFDY0753-78-43 11:32:005.9[facility] [place] MSQQBZCWSZ5191-87-39 11:32:001.0[facility] EnsifimOTYNSFTLCO1609-49-78 11:32:000.4 [facility] EiibpqiGGQCQWLKCR0806-73-98 11:32:0012.8[facility] HermannHEMATOLOGY 2019-03-12 11:32:000.8[facility] JizoqbcYOFFJKAUGO9090-50-70 11:32:000.1[facility] GuyavhcSPUCVKOJKV8295-59-18 11:32:000.1[facility] HermannPARATHYROID PROFILE 2019-03-12 11:32:001.07[facility] HermannPARATHYROID VSXQYUJ5043-72-53 11:32:00 1.06[facility] HermannSPECIAL JCTDMEYSH3430-02-32 11:32:005.3[facility] Steve
[2019-12-30 07:21] LABS: Arterial Blood Carboxyhemoglob 2.7 % (0-1.5); Blood Gas Oxyhemoglobin 90.9 % (94-97); Blood O2 Saturation 94.2 % (92-98.5)
[2019-12-30] MEDS ORDERED: MAGNESIUM SULFATE 1 gm IVPB 1 GM/100 ML BAG IV ONE (07:23)
[2019-12-30] MEDS ORDERED: METHYLPREDNISOLONE 125 MG INJ ONE (07:23)
[2019-12-30] MEDS ORDERED: NA CHLORIDE 0.9% 500 ML ONE (07:23)
[2019-12-30] MEDS ORDERED: LEVALBUTEROL 1.25 MG/3 ML NEB ONE (07:25)
[2019-12-30 07:36] LABS: Absolute Lymphocytes (CBC) 2.6 K/uL (0.7-4.9); Basophils % 0.5 % (0-1.3); Hematocrit 37.2 % (36.0-45.0); Lymphocytes % 18.8 % (15.3-44.8); MPV 8.6 fL (7.6-11.3); RBC Red Blood Cell Count 4.38 M/uL (3.86-4.86)
[2019-12-30 07:38] LABS: Protime INR 1.06
[2019-12-30 07:48] LABS: Troponin (Emerg Dept Use Only) 0.04 ng/mL (0.0-0.045)
[2019-12-30 07:49] LABS: Potassium 2.3 mmol/L (3.5-5.1)
[2019-12-30] MEDS ORDERED: KCL 20 MEQ/100 mL IVPB 40 MEQ/200 ML BAG IV ONE (08:42)
--- NOTE | 2019-12-30 09:42 | RAD REPORT ---
EXAM DESCRIPTION: CT - Chest For Pe Angio - 12/30/2019 9:00 am CLINICAL HISTORY: Chest pain. CHEST PAIN COMPARISON: Chest For Pe Angio dated 03/12/2018 TECHNIQUE: CT angiogram of the pulmonary arteries was performed with MIP. All CT scans are performed using dose optimization technique as appropriate and may include automated exposure control or mA/KV adjustment according to patient size. FINDINGS: No evidence of pulmonary thromboembolism. No acute aortic finding demonstrated. COPD is noted. Moderate patchy opacities are present in both posterior lung bases. Small bilateral pleural effusions, mildly larger on the right. No concerning bony finding. IMPRESSION: No evidence of pulmonary thromboembolism. Moderate infiltrate pattern in both lung bases, greater on the right with small bilateral pleural eff usions. Bibasilar pneumonia is felt to be the most likely etiology.
--- NOTE | 2019-12-30 09:49 | ER ---
Nurse's Notes [facility] Name: Paola De La Paz Age: 49 yrs Sex: Female : 1970 Arrival Date: 12/30/2019 Time: 07:03 Bed 5 Private MD: Randolph Wetzel Diagnosis: Pneumonia, unspecified organism;Chronic obstructive pulmonary disease with acute lower respiratory infection;Hypoxemia;Hypokalemia Presentation: 12/29 07:05 Chief complaint: Patient states: COPD exacerbation , cough, SOB for a few days, EMS iw reports pt was 80% on RA with RR of 40 on scene. Coronavirus screen: cough unrelated to allergies, difficulty breathing. Ebola Screen: Patient negative for fever greater than or equal to 101.5 degrees Fahrenheit, and additional compatible Ebola Virus Disease symptoms Patient denies exposure to infectious person. Patient denies travel to an Ebola-affected area in the 21 days before illness onset. No symptoms or risks identified at this time. Initial Sepsis Screen: Does the patient meet any 2 criteria? Does the patient have a suspected source of infection? No. Patient's initial sepsis screen is negative. Risk Assessment: Do you want to hurt yourself or someone else? Patient reports no desire to harm self or others. 07:05 Method Of Arrival: EMS: [facility] iw 07:05 Acuity: WILLIAM 2 iw 07:15 Onset of symptoms was December 28, 2019. iw Triage Assessment: 07:15 Respiratory: Onset: The symptoms/episode began/occurred 2-3 days , the patient has iw moderate shortness of breath. 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 - Family history:: not pertinent. - Social history:: Smoking status: Patient reports the use of cigarette tobacco products, smokes one-half pack cigarettes per day. - Hospitalizations: : No recent hospitalization is reported. Screenin:10 Abuse screen: Denies threats or abuse. Nutritional screening: No deficits noted. rb1 Tuberculosis screening: No symptoms or risk factors identified. Fall Risk None identified. Assessment: 07:10 General: Appears distressed, uncomfortable, Behavior is cooperative, anxious. Pain: iw Complains of pain in chest. Neuro: Level of Consciousness is awake, alert, obeys commands, Oriented to person, place, time, situation, Moves all extremities. Full function. Cardiovascular: Reports chest pain, shortness of breath, Patient's skin is warm and dry. Rhythm is sinus tachycardia. Respiratory: Reports shortness of breath at rest on exertion cough that is non-productive, labored breathing Airway is patent Respiratory effort is labored, Respiratory pattern is tachypnea Breath sounds are diminished bilaterally. GI: Abdomen is non-distended, obese. :. Derm: Skin is intact. Musculoskeletal: Range of motion: intact in all extremities. 08:04 Reassessment: Patient appears in no apparent distress at this time. Patient and/or iw family updated on plan of care and expected duration. Pain level reassessed. Patient is alert, oriented x 3, equal unlabored respirations, skin warm/dry/pink. pt sitting up, texting on cell phone Patient states feeling better. Patient states symptoms have improved. 08:45 Reassessment: Pt. went to CT. rb1 10:30 Reassessment: Patient appears in no apparent distress at this time. Patient and/or iw family updated on plan of care and expected duration. Pain level reassessed. Patient is alert, oriented x 3, equal unlabored respirations, skin warm/dry/pink. pt remains n Bipap, has been medicated with BP medicine and antibiotics Patient states feeling better. 11:40 Reassessment: Gave report to LUIGI Singh. Information from the SBAR was given. All rb1 questions asked and answered. Vital Signs: 07:05 BP 202 / 125; Pulse 120; Resp 32 S; Temp 99.1(TE); Pulse Ox 88% on CPAP; iw 07:35 Pulse 108; Resp 24 S; Pulse Ox 100% on BiPAP; iw 08:04 BP 178 / 116; Pulse 113; Resp 24 S; Pulse Ox 100% on BiPAP; iw 08:30 BP 178 / 112; Pulse 105; Resp 24; Pulse Ox 100% on BiPAP; mh5 09:30 BP 181 / 110; Pulse 106; Resp 24; Pulse Ox 99% on BiPAP; rb1 11:31 BP 153 / 99; Pulse 92; Resp 20 S; Temp 98.6; Pulse Ox 97% on BiPAP; iw 11:51 Weight 104.33 kg; Height 5 ft. 8 in. (172.72 cm); rb1 11:51 Body Mass Index 34.97 (104.33 kg, 172.72 cm) rb1 ED Course: 07:03 Patient arrived in ED. sg 07:03 Anup Rivera MD is Attending Physician. rn 07:03 Randolph Wetzel MD is Private Physician. sg 07:05 Initial lab(s) drawn, by me, sent to lab. Inserted saline lock: 20 gauge in right iw wrist, using aseptic technique. 07:10 Arm band placed on. iw 07:28 Noemy Alonzo, LUIGI is Primary Nurse. iw 07:31 Triage completed. iw 07:32 XRAY CXR (1 view) In Process Unspecified. EDMS 07:38 Patient has correct armband on for positive identification. diamond selector on. Pulse iw ox on. NIBP on. 08:[address] rb1 09:00 CT Chest For PE Angio In Process Unspecified. EDMS 09:47 Max Rivera MD is Hospitalizing Provider. rn 11:49 No provider procedures requiring assistance completed. Patient admitted, IV remains in rb1 place. Administered Medications: 07:10 Drug: SOLU-Medrol 125 mg Route: IVP; Site: right wrist; iw 07:25 Drug: Magnesium Sulfate 1 grams Route: IVPB; Infused Over: 1 hrs; Site: right wrist; iw 08:19 Follow up: Response: No adverse reaction; IV Status: Completed infusion rb1 07:32 Drug: Xopenex (3) 1.25 mg Route: Inhalation; iw 07:32 Drug: NS 0.9% 500 ml Route: IV; Rate: bolus; Site: right wrist; iw 08:32 Drug: Potassium Chloride 20 mEq Route: IV; Rate: calculated rate; Site: right wrist; iw 10:30 Drug: LevaQUIN 750 mg Volume: 150 ml; Route: IVPB; Infused Over: 90 mins; Site: right iw antecubital; 10:30 Drug: cloNIDine 0.2 mg Route: PO; iw Outcome: 09:48 Decision to Hospitalize by Provider. rn 12:16 Admitted to Med/surg accompanied by tech, family with patient, via wheelchair, with iw oxygen. 12:16 Condition: good 12:16 Discharge instructions given to patient, family, Instructed on the need for admit. 12:17 Patient left the ED. iw Signatures: Dispatcher [employer] EDMS Toni Sal RN Noemy Anaya RN RN iw Nieto, Roman, MD MD rn Barber, Rebecca, RN RN [facility] Jose Petit [facility] Corrections: (The following items were deleted from the chart) 07:29 07:05 Temp 99.1F Temporal; oe iw 07:30 07:05 BP 202 / 125; Pulse 120bpm; Resp 28bpm; Spontaneous; Pulse Ox 88% CPAP; Temp iw 99.1F Temporal; iw
--- NOTE | 2019-12-30 09:49 | EDPHYS ---
Physician Documentation [facility] Name: Paola De La Paz Age: 49 yrs Sex: Female : 1970 Arrival Date: 12/30/2019 Time: 07:03 Bed 5 Private MD: Randolph Wetzel ED Physician Anup Rivera HPI: 12/29 07:06 This 49 yrs old Female presents to ER via Unassigned with complaints of rn Breathing Difficulty. 07:06 The patient has shortness of breath at rest. Onset: The symptoms/episode began/occurred rn 4 day(s) ago. Duration: The symptoms are continuous. The patient's shortness of breath is aggravated by coughing, exertion, light activity. Severity of symptoms: At their worst the symptoms were moderate in the emergency department the symptoms are unchanged. The patient has experienced similar episodes in the past. Reports sob for 4 days, + cough, now with some blood in it, no fever or sick contacts, reports hx of blood clots, not taking her blood thinner 2/2 cost and lack of insurance. No trauma. . 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 - Family history:: not pertinent. - Social history:: Smoking status: Patient reports the use of cigarette tobacco products, smokes one-half pack cigarettes per day. - Hospitalizations: : No recent hospitalization is reported. ROS: 07:06 Constitutional: Negative for fever, chills, and weight loss, Eyes: Negative for injury, rn pain, redness, and discharge, Neck: Negative for injury, pain, and swelling, Cardiovascular: Negative for chest pain, palpitations, and edema, Respiratory: Negative for pleuritic chest pain Abdomen/GI: Negative for abdominal pain, nausea, vomiting, diarrhea, and constipation, MS/Extremity: Negative for injury and deformity, Skin: Negative for injury, rash, and discoloration, Neuro: Negative for headache, weakness, numbness, tingling, and seizure. Exam: 07:06 Constitutional: This is a well developed, well nourished patient who is awake, alert, rn + moderate tachypnea and work of breathing Head/Face: Normocephalic, atraumatic. ENT: No stridor Cardiovascular: Tachycardic, regular Respiratory: + moderate tachypnea with wheezing bilaterally, diminished at bases. Abdomen/GI: soft, non-tender Skin: Warm, dry, no cyanosis MS/ Extremity: Pulses equal, no cyanosis. Neurovascular intact. Full, normal range of motion. Equal circumference. Neuro: Awake and alert, GCS 15 07:55 ECG was reviewed by the Attending Physician. rn Vital Signs: 07:05 BP 202 / 125; Pulse 120; Resp 32 S; Temp 99.1(TE); Pulse Ox 88% on CPAP; iw 07:35 Pulse 108; Resp 24 S; Pulse Ox 100% on BiPAP; iw 08:04 BP 178 / 116; Pulse 113; Resp 24 S; Pulse Ox 100% on BiPAP; iw 08:30 BP 178 / 112; Pulse 105; Resp 24; Pulse Ox 100% on BiPAP; mh5 09:30 BP 181 / 110; Pulse 106; Resp 24; Pulse Ox 99% on BiPAP; rb1 11:31 BP 153 / 99; Pulse 92; Resp 20 S; Temp 98.6; Pulse Ox 97% on BiPAP; iw 11:51 Weight 104.33 kg; Height 5 ft. 8 in. (172.72 cm); rb1 11:51 Body Mass Index 34.97 (104.33 kg, 172.72 cm) rb1 MDM: 07:03 Patient medically screened. rn 08:19 ED course: Pt has listed iodine allergy but states has had numerous CT with contrast rn without problem.. 09:46 Differential diagnosis: pneumonia. Data reviewed: vital signs, nurses notes, lab test rn result(s), EKG, radiologic studies, CT scan, plain films, and as a result, I will admit patient. Counseling: I had a detailed discussion with the patient and/or guardian regarding: the historical points, exam findings, and any diagnostic results supporting the discharge/admit diagnosis, lab results, radiology results, the need for further work-up and treatment in the hospital. Response to treatment: the patient's symptoms have mildly improved after treatment, and as a result, I will admit patient. Admission orders: after a detailed discussion of the patient's condition and case, the admit orders are written by me. 09:54 ED course: Pt didn't tolerate attempt to transition to nasal cannula, so put back on rn bipap.. 12/29 07:06 Order name: Blood Culture Adult (2) rn 12/29 07:06 Order name: BMP; Complete Time: 08:19 rn 12/29 07:06 Order name: CBC with Diff; Complete Time: 08:19 rn 12/29 07:06 Order name: Magnesium; Complete Time: 08:19 rn 12/29 07:06 Order name: NT PRO-BNP; Complete Time: 08:19 rn 12/29 07:06 Order name: PT-INR; Complete Time: 08:19 rn 12/29 07:06 Order name: Ptt, Activated; Complete Time: 08:19 rn 12/29 07:06 Order name: Troponin (emerg Dept Use Only); Complete Time: 08:19 rn 12/29 07:06 Order name: Procalcitonin; Complete Time: 08:19 rn 12/29 07:06 Order name: Flu; Complete Time: 09:05 rn 12/29 07:13 Order name: Lactate; Complete Time: 08:19 rn 12/29 07:13 Order name: ABG rn 12/29 07:14 Order name: ABG Arterial Blood Gas; Complete Time: 09:05 EDNE 12/29 07:06 Order name: XRAY CXR (1 view) rn 12/29 07:06 Order name: EKG; Complete Time: 07:07 rn 12/29 07:06 Order name: Cardiac monitoring; Complete Time: 07:20 rn 12/29 07:06 Order name: BIPAP rn 12/29 08:19 Order name: CT Chest For PE Angio; Complete Time: 09:49 rn 12/29 08:30 Order name: ABG Arterial Blood Gas EDNE 12/29 08:45 Order name: SARS-COV-2 RT PCR; Complete Time: 09:05 EDNE 12/29 10:50 Order name: CONS Physician Consult EDNE 12/29 07:06 Order name: EKG - Nurse/Tech; Complete Time: 07:34 rn 12/29 07:06 Order name: IV Saline Lock; Complete Time: 07:20 rn 12/29 07:06 Order name: Labs collected and sent; Complete Time: 07:20 rn 12/29 07:06 Order name: O2 Per Protocol; Complete Time: 07:20 rn 12/29 07:06 Order name: O2 Sat Monitoring; Complete Time: : rn EC:55 Rate is 110 beats/min. Rhythm is regular. QRS [place] is Normal. ND interval is normal. rn QRS interval is normal. QT interval is normal. No Q waves. T waves are Normal. No ST changes noted. Clinical impression: Sinus tachycardia. Interpreted by me. Reviewed by me. Administered Medications: 07:10 Drug: SOLU-Medrol 125 mg Route: IVP; Site: right wrist; iw 07:25 Drug: Magnesium Sulfate 1 grams Route: IVPB; Infused Over: 1 hrs; Site: right wrist; iw 08:19 Follow up: Response: No adverse reaction; IV Status: Completed infusion rb1 07:32 Drug: Xopenex (3) 1.25 mg Route: Inhalation; iw 07:32 Drug: NS 0.9% 500 ml Route: IV; Rate: bolus; Site: right wrist; iw 08:32 Drug: Potassium Chloride 20 mEq Route: IV; Rate: calculated rate; Site: right wrist; iw 10:30 Drug: LevaQUIN 750 mg Volume: 150 ml; Route: IVPB; Infused Over: 90 mins; Site: right iw antecubital; 10:30 Drug: cloNIDine 0.2 mg Route: PO; iw Disposition: 09:46 Critical Care:. rn Disposition: 12/30/19 09:48 Hospitalization ordered by Max Rivera for Inpatient Admission. Preliminary diagnosis are Pneumonia, unspecified organism, Chronic obstructive pulmonary disease with acute lower respiratory infection, Hypoxemia, Hypokalemia. - Bed requested for Telemetry/MedSurg (Inpatient). - Status is Inpatient Admission. iw - Condition is Stable. - Problem is new. - Symptoms have improved. Critical care time excluding procedures: 09:46 Critical care time: Bedside Care: 25 minutes, Consultation: 5 minutes. Total time: 30 rn minutes Signatures: Dispatcher [employer] EDMS Noemy Alonzo RN RN Anup Rivera MD MD rn Aguilar, Jose, RN RN jaHeidy Whitfield RN rb1 Corrections: (The following items were deleted from the chart) 07:43 07:07 CORONAVIRUS+MR.LAB.BRZ ordered. EDNE EDMS 09:54 09:48 Hospitalization Ordered by Max Rivera MD for Inpatient Admission. Preliminary rn diagnosis is Pneumonia, unspecified organism; Chronic obstructive pulmonary disease with acute lower respiratory infection; Hypoxemia. Bed requested for Telemetry/MedSurg (Inpatient). Status is Inpatient Admission. Condition is Stable. Problem is new. Symptoms have improved. rn 11:22 09:54 12/30/2019 09:48 Hospitalization Ordered by Max Rivera MD for Inpatient ja1 Admission. Preliminary diagnosis is Pneumonia, unspecified organism; Chronic obstructive pulmonary disease with acute lower respiratory infection; Hypoxemia; Hypokalemia. Bed requested for Telemetry/MedSurg (Inpatient). Status is Inpatient Admission. Condition is Stable. Problem is new. Symptoms have improved. rn 12:17 11:22 12/30/2019 09:48 Hospitalization Ordered by Max Rivera MD for Inpatient iw Admission. Preliminary diagnosis is Pneumonia, unspecified organism; Chronic obstructive pulmonary disease with acute lower respiratory infection; Hypoxemia; Hypokalemia. Bed requested for Telemetry/MedSurg (Inpatient). Status is Inpatient Admission. Condition is Stable. Problem is new. Symptoms have improved. ja1
[2019-12-30] MEDS ORDERED: Levofloxacin 750mg IV 750 MG/150 ML BAG IV ONE (10:19)
[2019-12-30] MEDS ORDERED: cloNIDine HCL 0.1 MG TAB ONE (10:19)
--- NOTE | 2019-12-30 11:14 | P.HP ---
Certification for Inpatient Patient admitted to: Inpatient With expected LOS: >2 Midnights Practitioner: I am a practitioner with admitting privileges, knowledge of patient current condition, hospital course, and medical plan of care. Services: Services provided to patient in accordance with Admission requirements found in Title 42 Section 412.3 of the Code of Federal Regulations Patient History Date of Service: 12/30/19 Reason for admission: Acute hypoxemic respiratory failure, acute COPD exacerbation, pneumonia History of Present Illness: 49yo F, PMH: prior DVTs, COPD, NIKKI on CPAP, "Irregular heart rhythm", fibromyalgia, tremors presents to ED with acutely worsening SOB/CEJA for the past several days. This issue has been ongoing for many months but acutely worsens. She reports wheezing, cough, very difficult to breathe. Her albuterol inhaler was helping up until 2 days ago. She has been using her Symbicort and albuterol, but has not been taking any other medication due to loss of insurance. In the ED, she was found to be in an acute COPD exacerbation/hypoxemic respiratory failure, and CT was consistent with a bilateral pneumonia. COVID negative. 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 -: tubal ligation -: dvt removal to right leg -: tonsilectomy - Family History Father -: Heart disease, Cancer Mother -: Hypertension - Social History Smoking Status: Current every day smoker (1/2 ppd) Alcohol use: Yes CD- Drugs: No Caffeine use: Yes Review of Systems 10-point ROS is otherwise unremarkable Physical Examination - Physical Exam General: Alert, Mild distress HEENT: Sclerae nonicteric Respiratory: Diminished, Expiratory wheezes (On BiPAP) Cardiovascular: Edema (Trace bilateral lower legs) Gastrointestinal: Soft and benign, Non-distended, No tenderness Musculoskeletal: No swelling Integumentary: No rashes Neurological: Normal speech, Normal affect - Studies Laboratory Data (last 24 hrs) 12/30/19 07:00: PT 12.5, INR 1.06, APTT 25.6 12/30/19 07:00: WBC 13.8 H, Hgb 12.4, Hct 37.2, Plt Count 315 12/30/19 07:00: Sodium 138, Potassium 2.3 L*, BUN 13, Creatinine 1.25, Glucose 151 H, Magnesium 2.0 Microbiology Data (last 24 hrs): 12/30/19 07:06 Nasopharnyx Influenza Type A Antigen Screen - Final 12/30/19 07:06 Nasopharnyx Influenza Type B Antigen Screen - Final Assessment and Plan - Advance Directives Does patient have a Living Will: No Does patient have a Durable POA for Healthcare: No Physician Review Additional Text: Acute hypoxemic respiratory failure in setting of acute on chronic COPD exacerbation Bilateral community-acquired pneumonia -SIRS 3/4. Leukocytosis, tachypneic, tachycardiac, afebrile -small bilateral pleural effusions on CT, no lactic acidosis, will give gentle fluids for a few hr -placed on BiPAP in the ED, with some improvement, continue BiPAP -continue scheduled nebs, Solu-Medrol 40 q. 8 -continue Levaquin, patient with penicillin allergy -COVID negative -Pulmonology consulted, patient states she follows with Dr. Cardenas h/o blood clots -prescribes route so, however has been off of this due to loss of insurance -treatment Lovenox doses for now -will discuss with criminal justice social worker, possible Xarelto coupon on discharge -CT negative for PE Hypokalemia -repleting, recheck later today Tobacco use -counseled on tobacco cessation NIKKI Chronic tremor Fibromyalgia -stable, obtain home medications and continue Dispo: anticipate dc home in 48-72 hrs Time Spent Managing Pts Care (In Minutes): 55
[2019-12-30] MEDS ORDERED: Levofloxacin 750mg IV 750 MG/150 ML BAG IV SCH (11:24)
[2019-12-30] MEDS ORDERED: NA CHLORIDE 0.9% 1,000 ML IV SCH (11:24)
[2019-12-30] MEDS ORDERED: INSULIN -REGULAR HUMAN 50 UNIT/0.5 ML ML SQ SCH (11:30)
--- NOTE | 2019-12-30 11:44 | RAD REPORT ---
EXAM DESCRIPTION: RAD - Chest Single View - 12/30/2019 7:32 am CLINICAL HISTORY: DYSPNEA Chest pain. COMPARISON: Chest Single View dated 08/14/2018; Chest Pa And Lat (2 Views) dated 03/12/2018; CHEST SIN GLE VIEW dated 08/29/2013; CHEST SINGLE VIEW dated 08/16/2013; Chest For Pe Angio dated 12/30/2019 FINDINGS: Portable technique limits examination quality. Mild to moderate bibasilar lung opacities are seen, slightly worse on the right, likely representing pneumonia. The heart is normal in size. Small bilateral pleural effusions. IMPRESSION: [id number] bibasilar infiltrate/pneumonia pattern.
[2019-12-30 12:20] VITALS: BMI 36.5
[2019-12-30] MEDS: KCL 20 MEQ/100 mL IVPB 20 MEQ/100 ML BAG IV SCH ×2 (12:59→14:00)
[2019-12-30] MEDS: IPRATROPIUM BROM 0.5MG/2.5ML NEB SCH ×2 (13:37→21:45)
[2019-12-30] MEDS: ALBUTEROL 2.5 MG/3 ML NEB SOL NEB SCH ×2 (13:37→21:45)
[2019-12-30] MEDS: lisinopriL 20 MG TAB PO SCH ×2 (14:00→21:28)
[2019-12-30] MEDS: METHYLPREDNISOLONE 40 MG INJ IV SCH (16:25)
--- NOTE | 2019-12-30 17:41 | P.CNS ---
Date of Consult: 12/30/19 Reason for Consult: COPD exacerbation Chief Complaint: Shortness of breath cough abdominal discomfort History of Present Illness: Patient is 49 years of age with a history of COPD admitted with weeks history of worsening shortness of breath wheezing coughing them abdominal discomfort in the right upper quadrant he does have Symbicort still continues to smoke and productive cough mcdermott virus negative 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 -: tubal ligation -: dvt removal to right leg -: tonsilectomy - Family History Father Medical History: Heart disease, Cancer Mother Medical History: Hypertension - Social History Smoking Status: Current every day smoker Alcohol use: Yes CD- Drugs: No Caffeine use: Yes Place of Residence: Home Review of Systems 10-point ROS is otherwise unremarkable General: Weakness ENT: Nose Discharge Respiratory: Shortness of Breath Gastrointestinal: As per HPI Physical Examination Temp Pulse Resp BP Pulse Ox 98.1 F 100 H 19 131/79 100 12/30/19 16:00 12/30/19 16:00 12/30/19 16:00 12/30/19 16:00 12/30/19 16:00 General: Alert, Oriented x3 Neck: Supple Respiratory: Expiratory wheezes Cardiovascular: No edema, Regular rate/rhythm Gastrointestinal: Normal bowel sounds, Tenderness (Slight tenderness in the right upper quadrant) Musculoskeletal: No clubbing, No swelling Laboratory Data (last 24 hrs) 12/30/19 07:00: PT 12.5, INR 1.06, APTT 25.6 12/30/19 07:00: WBC 13.8 H, Hgb 12.4, Hct 37.2, Plt Count 315 12/30/19 07:00: Sodium 138, Potassium 2.3 L*, BUN 13, Creatinine 1.25, Glucose 151 H, Magnesium 2.0 - Problems (1) COPD exacerbation Current Visit: Yes Status: Acute Plan: Patient is 49 years of age with a history of COPD admitted with an exacerbation bibasilar infiltrates patient has mild hypoxemia mildly elevated white count vital signs stable no fever history of DVT patient has not been taking her anticoagulants change to p.o. levofloxacin possible discharge tomorrow (2) History of DVT (deep vein thrombosis) Current Visit: No Status: Acute Plan: Patient has a history of DVT non compliant due to lack of insurance and cost of the medication I recommend changing her over to low-dose warfarin 5 mg monitor PT INR is an outpatient
[2019-12-30] MEDS: PANTOPRAZOLE 40MG TABLET PO SCH (18:04)
[2019-12-30] MEDS ORDERED: WARFARIN SODIUM 5 MG TAB PO SCH (20:00)
[2019-12-30] MEDS ORDERED: ENOXAPARIN 100 MG/ML SYR SQ SCH (21:00)
[2019-12-30] MEDS ORDERED: ZOLPIDEM TARTRATE 10 MG TABLET PO SCH (21:00)
[2019-12-30] MEDS ORDERED: POTASSIUM 25 MEQ EFFERV TAB PO ONE (21:00)
[2019-12-30] MEDS: PROPRANOLOL HCL 10 MG TAB PO SCH (21:28)
[2019-12-30] MEDS: POTASSIUM 25 MEQ EFFERV TAB PO SCH (21:29)
[2019-12-31] MEDS: METHYLPREDNISOLONE 40 MG INJ IV SCH ×2 (00:01→09:53)
[2019-12-31] MEDS: IPRATROPIUM BROM 0.5MG/2.5ML NEB SCH ×3 (02:15→14:25)
[2019-12-31] MEDS: ALBUTEROL 2.5 MG/3 ML NEB SOL NEB SCH ×3 (02:15→14:25)
[2019-12-31] MEDS: KCL 20 MEQ/100 mL IVPB 20 MEQ/100 ML BAG IV SCH ×2 (02:53→05:21)
[2019-12-31 04:47] LABS: Protime INR 1.12
[2019-12-31 04:48] LABS: Absolute Lymphocytes (CBC) 1.3 K/uL (0.7-4.9); Basophils % 0.4 % (0-1.3); Hematocrit 31.6 % (36.0-45.0); Lymphocytes % 8.9 % (15.3-44.8); MPV 8.9 fL (7.6-11.3)
[2019-12-31 04:58] LABS: Albumin 2.9 g/dL (3.4-5.0); Bilirubin Total 0.5 mg/dL (0.2-1.0); Magnesium 2.4 mg/dL (1.8-2.4); Phosphorus 2.8 mg/dL (2.5-4.9); Potassium 3.7 mmol/L (3.5-5.1)
[2019-12-31 05:26] LABS: Blood Morphology Comment NOT SEEN (NOT SEEN); Platelet Estimate ADEQ
[2019-12-31] MEDS: PANTOPRAZOLE 40MG TABLET PO SCH ×2 (06:23→12:17)
[2019-12-31] MEDS ORDERED: SERTRALINE HCL 100 MG TAB PO SCH (09:00)
[2019-12-31] MEDS ORDERED: levoFLOXacin 500 MG TAB PO SCH (09:00)
[2019-12-31] MEDS: PROPRANOLOL HCL 10 MG TAB PO SCH (09:53)
[2019-12-31] MEDS: lisinopriL 20 MG TAB PO SCH (09:53)
[2019-12-31] MEDS: POTASSIUM 25 MEQ EFFERV TAB PO SCH (09:54)
--- NOTE | 2019-12-31 09:58 | RAD REPORT ---
EXAM DESCRIPTION: US - Abdomen Exam Limited - 12/31/2019 9:04 am CLINICAL HISTORY: Abdominal pain. COMPARISON: None. FINDINGS: The gallbladder wall is not thickened. A gallstone is not seen. The biliary tree is normal caliber. IMPRESSION: Unremarkable gallbladder ultrasound.
--- NOTE | 2019-12-31 11:10 | P.PN ---
Subjective Date of Service: 12/31/19 Chief Complaint: Shortness of breath / cough Subjective: Improving (Reports feeling a little bit better, and tolerated BiPAP overnight Still feels short of breath "climbing up the perez" overnight, anxious) Review of Systems 10-point ROS is otherwise unremarkable Physical Examination - Vital Signs Temperature: 96.8 F Blood Pressure: 145/76 Pulse: 95 Respirations: 22 Pulse Ox (%): 97 - Physical Exam General: Alert, In no apparent distress HEENT: Sclerae nonicteric Neck: JVD not distended Respiratory: Diminished (throughout), Expiratory wheezes (mild) Cardiovascular: No edema, Regular rate/rhythm, Normal S1 S2 Gastrointestinal: Soft and benign, Non-distended, Tenderness (very mild RUQ) Neurological: Normal speech, Normal affect - Studies Microbiology Data (last 24 hrs): 12/30/19 07:06 Nasopharnyx Influenza Type A Antigen Screen - Final 12/30/19 07:06 Nasopharnyx Influenza Type B Antigen Screen - Final Assessment & Plan Physician Review Additional Text: Acute hypoxemic respiratory failure in setting of acute on chronic COPD exacerbation Bilateral community-acquired pneumonia -SIRS 3/4. Leukocytosis, tachypneic, tachycardiac, afebrile -small bilateral pleural effusions on CT, no lactic acidosis, received gentle fluids for a few hr -placed on BiPAP in the ED, having some improvement this morning -continue scheduled nebs, Solu-Medrol 40 q. 8 -continue Levaquin, patient with penicillin allergy -COVID negative -Pulmonology consulted, patient states she follows with Dr. Cardenas h/o blood clots -prescribed Xarelto, however has been off of this due to loss of insurance and cost -started on lovenox, transitioned to 5mg Coumadin per Pulm - pt states she can't afford lovenox or NOACs -CT negative for PE Hypokalemia -improved with replacement Tobacco use -counseled on tobacco cessation -nicotine patch NIKKI Chronic tremor Fibromyalgia -stable, continue home meds Dispo: anticipate dc home in 24-48hrs, wean BIPAP/O2 Time Spent Managing Pts Care (In Minutes): 35
[2019-12-31] MEDS ORDERED: POLYETHYL GLY 3350 17 GM/DOSE PO PRN (11:27)
[2019-12-31] MEDS ORDERED: SIMETHICONE 125 MG TAB PO PRN (11:27)
[2019-12-31] MEDS ORDERED: NICOTINE 14 MG/PAT TD SCH (11:30)
[2019-12-31 13:00] VITALS: TEMP 97.5
[2019-12-31] MEDS ORDERED: INFLUENZA VACCINE (for 3y+) 0.5 ML DOSE IMVAC ONE (13:00)
[2019-12-31] MEDS ORDERED: WARFARIN SODIUM 5 MG TAB PO SCH (17:00)
[2019-12-31] MEDS ORDERED: RIVAROXABAN 15 MG TABLET PO SCH (17:00)
[2019-12-31 17:03] VITALS: O2SAT 92
[2019-12-31 17:16] VITALS: BP 137/83
--- NOTE | 2019-12-31 17:20 | P.DS ---
Admission Date: 12/30/19 Discharge Date: 12/31/19 Disposition: ROUTINE DISCHARGE Discharge Condition: GOOD Reason for Admission: Shortness of breath / cough Consultations: Pulmonology - Dr. Cardenas Procedures: CXR (12/29): Mild-moderate bibasilar infiltrate/pneumonia pattern CTA chest (12/29): No evidence of PE. Moderate infiltrate pattern in both lung bases, greater on the right with small bilateral pleural effusions. Bibasilar pneumonia is felt to be the most likely etiology. RUQ U/S (12/30): Unremarkable gallbladder ultrasound Problem list Acute hypoxemic respiratory failure in setting of acute on chronic COPD exacerbation Bilateral community-acquired pneumonia h/o DVTs, off anticoagulation now Hypokalemia, resolved Tobacco use NIKKI Chronic tremor Fibromyalgia Brief History of Present Illness: 49yo F, PMH: prior DVTs, COPD, NIKKI on CPAP, "Irregular heart rhythm", fibromyalgia, tremors presents to ED with acutely worsening SOB/CEJA for the past several days. In the ED, she was found to be in an acute COPD exacerbation/hypoxemic respiratory failure, and CT was consistent with a bilateral pneumonia. COVID negative. She has been using her Symbicort and albuterol, but has not been taking any other medication due to loss of insurance. Hospital Course: The patient was placed on BiPAP in the ED, and was treated for COPD exacerbation and her pneumonia. She quickly improved and on day of discharge, she was breathing comfortably on room air, tolerating regular diet, and ambulating with minimal dyspnea. The long discussion on regarding the importance of her medications and tobacco cessation was had with the patient. Unfortunately she cannot afford medications now that she has lost her insurance. Patient states she cannot afford DOACs, Lovenox (for bridging), but can afford Coumadin an actually still has some prior Coumadin pills at home. She reports difficulty with obtaining a therapeutic INR, was last requiring 10 mg every day, at one point she was even taking 20 mg every day. She is discharged home with a prednisone taper, Levaquin, warfarin, Airduo, and a refill was given for her lisinopril. Vital Signs/Physical Exam: Temp Pulse Resp BP Pulse Ox 97.5 F 103 H 20 137/83 92 12/31/19 16:00 12/31/19 16:00 12/31/19 16:00 12/31/19 16:00 12/31/19 16:00 General: Alert, In no apparent distress Neck: No LAD Respiratory: Diminished (Slightly at bases bilaterally), Expiratory wheezes (Very mild) Cardiovascular: No edema, Regular rate/rhythm, Normal S1 S2 Gastrointestinal: Soft and benign, Non-distended, Tenderness (Mild RUQ) Musculoskeletal: No erythema, No tenderness Integumentary: No rashes Neurological: Normal speech, Normal affect Laboratory Data at Discharge: WBC 14.4 K/uL (4.3-10.9) H 12/31/19 04:19 Hgb 10.4 g/dL (12.0-15.0) L 12/31/19 04:19 Hct 31.6 % (36.0-45.0) L D 12/31/19 04:19 Plt Count 248 K/uL (152-406) D 12/31/19 04:19 PT 13.2 SECONDS (9.5-12.5) H 12/31/19 04:19 INR 1.12 12/31/19 04:19 APTT 25.6 SECONDS (24.3-36.9) 12/30/19 07:00 Sodium 140 mmol/L (136-145) 12/31/19 04:19 Potassium 4.1 mmol/L (3.5-5.1) 12/31/19 12:50 BUN 16 mg/dL (7-18) 12/31/19 04:19 Creatinine 1.12 mg/dL (0.55-1.3) 12/31/19 04:19 Glucose 124 mg/dL (74-106) H 12/31/19 04:19 Phosphorus 2.8 mg/dL (2.5-4.9) 12/31/19 04:19 Magnesium 2.4 mg/dL (1.8-2.4) 12/31/19 04:19 Total Bilirubin 0.5 mg/dL (0.2-1.0) 12/31/19 04:19 AST 17 U/L (15-37) 12/31/19 04:19 ALT 34 U/L (12-78) 12/31/19 04:19 Alkaline Phosphatase 103 U/L (45-117) 12/31/19 04:19 Home Medications: Propranolol HCl 1 tab PO BID 11/17/16 Sertraline [Zoloft*] 1 tab PO DAILY 11/17/16 Zolpidem Tartrate [Ambien] 1 tab PO BEDTIME 11/17/16 Fluticasone/Salmeterol [Airduo Respiclick 113-14 Mcg] 1 each IH BID 30 Days #1 [email or web address] 12/31/19 Warfarin Sodium 10 mg PO BEDTIME 30 Days #30 tablet 12/31/19 levoFLOXacin [Levaquin*] 500 mg PO DAILY 10 Days #10 tab 12/31/19 lisinopriL [Prinivil*] 1 tab PO BID 30 Days #60 tab 12/31/19 predniSONE [Prednisone] 20 mg PO SEECOM #22 tablet 12/31/19 New Medications: Fluticasone/Salmeterol [Airduo Respiclick 113-14 Mcg] 1 each IH BID 30 Days #1 aer.pow.ba levoFLOXacin [Levaquin*] 500 mg PO DAILY 10 Days #10 tab predniSONE [Prednisone] 20 mg PO SEECOM #22 tablet lisinopriL [Prinivil*] 1 tab PO BID 30 Days #60 tab Warfarin Sodium 10 mg PO BEDTIME 30 Days #30 tablet Patient Discharge Instructions: follow up with PCP within 3-5 days. follow up with Dr. Cardenas in ~2-3 weeks Diet: Regular Activity: Ad taya Followup: NONE,NONE [Primary Care Provider] -
== END 2019-12-31 16:48 | disposition home or self-care (01) | DRG 193 ==
LOC: ER 07:01 → ERHOLD 10:49 → 2ND 11:46
PROVIDERS: ADMIT Hospitalist; ATTEND Hospitalist
PROC: 5A09357 Assistance with Respiratory Ventilation, Less than 24 Consecutive Hours, Continuous Positive Airway Pressure (ICD-10-PCS; principal; 2019-12-30)
DX: J18.9 Pneumonia, unspecified organism (principal); J96.01 Acute respiratory failure with hypoxia; J44.1 Chronic obstructive pulmonary disease with (acute) exacerbation; J44.0 Chronic obstructive pulmonary disease with (acute) lower respiratory infection; F17.210 Nicotine dependence, cigarettes, uncomplicated; I10 Essential (primary) hypertension; Z86.73 Personal history of transient ischemic attack (TIA), and cerebral infarction without residual deficits; Z88.0 Allergy status to penicillin; Z86.718 Personal history of other venous thrombosis and embolism; Z86.711 Personal history of pulmonary embolism; Z98.51 Tubal ligation status; Z91.14 Patient's other noncompliance with medication regimen; Z91.09 Other allergy status, other than to drugs and biological substances; E78.5 Hyperlipidemia, unspecified; E87.6 Hypokalemia; G47.33 Obstructive sleep apnea (adult) (pediatric); G25.2 Other specified forms of tremor; M79.7 Fibromyalgia; Z79.01 Long term (current) use of anticoagulants; Z79.899 Other long term (current) drug therapy; Z79.52 Long term (current) use of systemic steroids; Z20.828 Contact with and (suspected) exposure to other viral communicable diseases
CPT/HCPCS: 36415; 71045; 71275; 76705; 80048; 80053; 82805; 83605; 83735; 83880; 84100; 84132; 84145; 84484; 85025; 85610; 85730; 87040; 87070; 87205; 87804; 93005; 94640; 94660; 94760; 99285; J2920; J2930; J3475; J3480; J7030; J7040; Q9967; U0003

== ENCOUNTER 2020-01-15 13:32 | Inpatient (IN) | payer SELFPAY ==
[2020-01-15 13:58] LABS: Arterial Blood Carboxyhemoglob 3.9 % (0-1.5); Blood Gas Oxyhemoglobin 90.9 % (94-97); Blood O2 Saturation 95.3 % (92-98.5)
[2020-01-15] MEDS ORDERED: METHYLPREDNISOLONE 125 MG INJ ONE ×3 (14:03→22:58)
[2020-01-15] MEDS ORDERED: LEVALBUTEROL 1.25 MG/3 ML NEB ONE (14:04)
--- OUTSIDE RECORDS SUMMARY | 2020-01-15 14:13 | XMS REPORT | Continuity of Care Document ---
:1970 Author Organization [employer] Care Team Providers Name Role Phone [employer] Unavailable Un available Problems Problem Status Onset Classification Date Comments Sour e Date Reported COPD Active 03/12/20 [facility] st EXACERBATION 19 Illness, 03/16/2019 [facility] unspecified ILLNESS, Active [facility] UNSPECIFIED CHRONIC Active [facility] OBSTRUCTIVE PULMONARY DISEASE W Medications Medication Details Route Status Patient Ordering Order Source Instructions Provider Date methylPREDNISolone Notes: (Same No Longer SODium SUCCinate as:Solu-MEDROL Active 2019 , A-Methapred) amLODIPine 10 mg 10 mg = 1 tab, Active oral tablet PO, Daily, # 2019 [facility] 30 tab, 0 Refill(s), Pharmacy: [facility]/pharmacy #[id number] lisinopril 20 mg 20 mg = 1 tab, Active oral tablet PO, Daily, # 2019 st 30 tab, 0 Refill(s), Pharmacy: [facility]/pharmacy #[id number] albuterol 90 2 puff, Active mcg/inh inhalation INHALATION, 2019 [facility] aerosol QID, PRN as needed for wheezing, # 1 ea, 3 Refill(s), Pharmacy: [facility]/pharmacy #[id number] predniSONE 20 mg 40 mg = 2 tab, Active oral tablet PO, Daily, X 3 2019, # 6 tab, 0 Refill(s), Pharmacy: [facility]/pharmacy #[id number] Symbicort 160/4.5 2 puff, Active inhalation aerosol INHALER, BID, 2019 with adapter # 1 ea, 3 Refill(s), Pharmacy: [facility]/pharmacy #[id number] lisinopril 20 mg 20 mg = 1 tab, Inactive oral tablet PO, Daily, 2019 st 30 tab, 0 Refill(s) amLODIPine 10 mg 10 mg = 1 tab, Inactive oral tablet PO, Daily, # [address] [facility] [address] 30 tab, 0 Refill(s) predniSONE 20 mg 40 mg = 2 tab, Inactive oral tablet PO, Daily, X 3 2019 [facility] day, # 6 tab, 0 Refill(s) Symbicort 160/4.5 2 puff, Inactive inhalation aerosol INHALER, BID, 2019 with adapter # 1 ea, 3 Refill(s) albuterol 90 2 puff, Inactive mcg/inh inhalation INHALATION, 2019 [facility] aerosol QID, PRN as needed for wheezing, # 1 ea, 3 Refill(s) remove patch Notes: Remove Inactive old patch 2019 [facility] before application of new patch. WASTE: F/P - P Waste Black; E - P Waste Black Simethicone Notes: (Same Inactive as: Mylicon) 2019 [facility] Zolpidem tartrate 10 mg = 1 tab, Active 10 MG Oral Tablet PO, Bedtime, 0 2018 [facility] [Ambien] Refill(s) zinc sulfate 220 220 mg = 1 No Longer mg oral capsule cap, PO, Active 2018 [facility] Daily, 0 Refill(s) Sulfamethoxazole amlodipine, No Longer 03/13/ H 800 MG / PO, Q12H, 0 Active 2018 [facility] Trimethoprim 160 Refill(s) MG Oral Tablet Amlodipine PO, Daily, 0 No Longer Refill(s) Active 2018 [facility] Nicotine Notes: (Same No Longer as: Habitrol) Active 2018 [facility] "Remove old patch before application of new patch" WASTE: F/P - P Waste Black; E - P Waste Black Lisinopril Notes: (Same No Longer as: Prinivil, Active 2018 [facility] Zestril) Lisinopril Notes: (Same Inactive as: Prinivil, 2019 [facility] Zestril) Metoprolol Notes: (Same No Longer as: Lopressor) Active 2018 [facility] Push over 2 minutes metoprolol Notes: (Same No Longer tartrate as: Lopressor) Active 2018 [facility] t Reglan Notes: (Same No Longer as: Reglan) Active 2018 [facility] Azithromycin Notes: (Same No Longer As: Zithromax Active 2018 [facility] IV) azithromycin 500 Notes: Take 1 No Longer mg oral tablet hour before or Active 2018 [facility] 2 hours after meals. (Same As: Zithromax) Zofran Notes: (Same Inactive as: Zofran) 2018 [facility] MEDICATION WASTE Product Size: 4 mg Product Wasted: ___ mg Zofran 4 mg, Route: Inactive IVP, Drug 2018 [facility] form: INJ, Q8H, Dosing Weight 111.4, kg, PRN Nausea, Start date: 03/13/19 7:46:00 RESEARCH CLERK, Duration: 30 day, Stop date: 04/12/19 7:45:00 RESEARCH CLERK metoprolol Notes: (Same No Longer tartrate as: Lopressor) Active [facility] Sublimaze Notes: (Same Inactive as: Sublimaze) 2018 [facility] Preservative free. Zofran Notes: (Same Inactive as: Zofran) 2018 [facility] MEDICATION WASTE Product Size: 4 mg Product Wasted: ___ mg Fentanyl Notes: (Same Inactive as: Sublimaze) 2018 [facility] Preservative free. Magnesium Sulfate Notes: WASTE: Inactive F/P - Sink; E 2018 [facility] - [facility] Tra Bin K-Dur 20 Notes: Inactive pharmacy 2018 [facility] re-entry for product selection (Same as: K-Dur 20) "Do Not Crush" Give with food and full glass of water For patients unable to swallow tablet, dissolve in one half glass of water. Allow about 2 minutes for the tablets to disintegrate. Stir before giving to prepare slurry and administer. Please exclude Patients with feeding tube less than 14 [place] (Dobhoff, J-tube etc) and pediatric and patients. potassium Notes: (Same Inactive phosphate as: K 2018 [facility] Phosphate.) Do not infuse phosphorous concurrently in the same line as TPN or IVF that contains calcium. For double lumen central lines, phosphorous may be infused in a separate lumen from TPN. 1 mMol phoshate has 1.47 mEq potassium Infuse over 4 hours Potassium Chloride 60 mEq, Route: Inactive 03/12 1.33 MEQ/ML Oral PO, Drug form: 2018 [facility] Solution LIQ, ONCE, Dosing Weight 111.4, kg, Priority: STAT, Start date: 03/12/19 16:46:00 RESEARCH CLERK, Stop date: 03/12/19 16:46:00 RESEARCH CLERK potassium Notes: (Same Inactive phosphate as: K 2018 [facility] Phosphate.) Do not infuse phosphorous concurrently in the same line as TPN or IVF that contains calcium. For double lumen central lines, phosphorous may be infused in a separate lumen from TPN. 1 mMol phoshate has 1.47 mEq potassium Infuse over 4 hours Sodium Chloride 250 mL, Route: No Longer 0.9% IV IVPB, Start Active 2018 [facility] date: 03/12/19 15:53:00 RESEARCH CLERK, Duration: 30 day, Stop date: 04/11/19 15:52:00 RESEARCH CLERK, PRN Line Flush, 0 Hydralazine Notes: (Same No Longer as: Active 2018 [facility] Apresoline) Push over 5 minutes Labetalol Notes: (Same No Longer as: Normodyne, Active 2018 [facility] Trandate) Push over 2 minutes Give bolus over 2-3 minutes. methylPREDNISolone Notes: (Same No Longer SODium SUCCinate as:Solu-MEDROL Active 2018 [facility] , A-Methapred) Ondansetron Notes: (Same No Longer as: Zofran) Active 2018 [facility] MEDICATION WASTE Product Size: 4 mg Product Wasted: ___ mg Ipratropium Notes: SEE RT No Longer [place] 0.2 MG/ML DOCUMENTATION Active 2018 [facility] Inhalant Solution (Same as:Atrovent) Ipratropium Notes: SEE RT Inactive [place] 0.2 MG/ML DOCUMENTATION 2019 [facility] Inhalant Solution (Same as:Atrovent) Propranolol Notes: Give Inactive with food. 2019 [facility] (Same as: Inderal) Amlodipine Notes: (Same No Longer as: Norvasc) Active 2018 [facility] Fluoxetine Notes: (Same No Longer as: Prozac, Active 2019 [facility] Sarafem) zolpidem Notes: (Same No Longer As: Ambien) Active 2018 [facility] Albuterol 0.83 Notes: SEE RT No Longer 03/12/ M H MG/ML Inhalant DOCUMENTATION Active 2018 [facility] Solution (Same as: Proventil) potassium Notes: (Same Inactive phosphate as: K 2018 [facility] Phosphate.) Do not infuse phosphorous concurrently in the same line as TPN or IVF that contains calcium. For double lumen central lines, phosphorous may be infused in a separate lumen from TPN. 1 mMol phoshate has 1.47 mEq potassium Infuse over 4 hours Docusate Notes: (Same No Longer as: Colace) Active 2018 [facility] (Do Not Crush) sennosides, PRISON Notes: (Same No Longer 03/12/ M H as: Senokot) Active 2018 [facility] Saline Flush 0.9% Notes: No Longer preservative Active 2018 [facility] free. Budesonide 0.5 Notes: (Same No Longer MG/ML Inhalant As: Pulmicort) Active 2018 [facility] Solution glucagon 1 mg, Route: No Longer IV, Drug form: Active 2018 [facility] PDR/INJ, PRN, PRN Blood Glucose Results, Start date: 03/12/19 8:43:00 RESEARCH CLERK, Duration: 30 day, Stop date: 04/11/19 8:42:00 RESEARCH CLERK, 0 Humalog Notes: (Same No Longer as: Humalog) Active 2018 [facility] Roll in palms of hands gently; Do not shake vigorously. WASTE: F/P - Black; E - [employer] Trash Bin Stable for 28 days at room temperature. Expires in days from Date Dextrose 50% in 50 mL, Route: No Longer Water IV IVP, Start Active 2018 [facility] date: 03/12/19 8:42:00 RESEARCH CLERK, Duration: 30 day, Stop date: 04/11/19 8:41:00 RESEARCH CLERK, PRN Blood Glucose Results, 0 Potassium Chloride [...] s with feeding tube less than 14 [place] (Dobhoff, J-tube etc) and pediatric and patients. Albuterol 0.833 Notes: (Same Inactive MG/ML / as: Duoneb) 2018 [facility] Ipratropium [place] 0.167 MG/ML Inhalant Solution [DuoNeb] Potassium Chloride Notes: (Same Inactive as: KCL) 2018 [facility] Infuse no faster than 10 mEq/hr if given peripherally. sodium phosphate Notes: Infuse Inactive over 4 hour. 2018 [facility] Do not infuse phosphorous concurrently in the same line as TPN or IVF that contains calcium. For double lumen central lines, phosphorous may be infused in a separate lumen from TPN. potassium Notes: (Same Inactive phosphate as: K 2018 [facility] Phosphate.) Do not infuse phosphorous concurrently [...] WASTE: Inactive F/P - Sink; E 2018 [facility] Bin Magnesium Oxide Notes: (Same Inactive as: Mag-Ox 2018 [facility] 400) Magnesium oxide [id number] elemental magnesium Dose=____mg magnesium oxide (___mg elemental magnesium) Calcium Gluconate Notes: WASTE: Inactive F/P - Sink; E 2018 [facility] Bin Calcium Carbonate Notes: (Same Inactive 500 MG Chewable As: Tums) 2018 [facility] Tablet Calcium Carbonate 500 mg = 200 mg elemental calcium Dose = mg calcium carbonate ( mg elemental calcium) Lovenox Notes: Nurse No Longer to ensure Active 2018 [facility] documentation of patient education per anticoagulatio n policy. (Same as: Lovenox) Albuterol 0.83 Notes: SEE RT Inactive MG/ML Inhalant DOCUMENTATION 2018 [facility] Solution (Same as: Proventil) Albuterol 0.833 Notes: (Same Inactive MG/ML / as: Duoneb) 2018 [facility] Ipratropium [place] 0.167 MG/ML Inhalant Solution Saline Flush 0.9% Notes: No Longer preservative Active 2018 [facility] free. Acetaminophen Notes: Do not No Longer exceed 4 Active 2018 [facility] gm/day. (Same as: Tylenol) Solu-Medrol Notes: (Same Inactive as:Solu-MEDROL 2019 [facility] , A-Methapred) Allergies, Adverse Reactions, Alerts Substance Category Reaction Severity Reaction Status Date Comments S ource type Reported penicillins Assertion Penicillin Drug Active G allergy [facility] Benzathine, 300,000 U/ML,Inject ion (systemic), injection iodine Assertion Drug Active topical allergy [facility] Immunizations No Data Provided for This Section Results Order Name Results Value Reference Date Interpretation Comments Jhoanna rce Range ELECTROLYT AGAP 7.7 10.0 - 03/14 ES 20.0 [facility] ELECTROLYT Glucose Lvl 123 70 - 99 03/14 [facility] ELECTROLYT BUN 28 7 - 22 03/14 [facility] ELECTROLYT Creatinine 1.20 0.50 - 03/14 ES Lvl 1.40 /2019 [facility] ELECTROLYT Sodium Lvl 137 135 - 145 03/14 [facility] ELECTROLYT Potassium 3.7 3.5 - 5.1 03/14 ES Lvl [facility] ELECTROLYT Chloride Lvl 100 95 - 109 03/14 [facility] ELECTROLYT CO2 33 24 - 32 03/14 [facility] ELECTROLYT Calcium Lvl 8.9 8.5 - 10.5 03/14 [facility] ELECTROLYT eGFR 54 03/14 Result Comment: The [facility] eGFR is calculated using the CKD-EPI [...] HEMATOLOGY WBC 16.8 3.7 - 10.4 03/14 [facility] HEMATOLOGY RBC 3.63 4.20 - 03/14 MH 5.40 /2019 [facility] HEMATOLOGY Hgb 10.8 12.0 - 03/14 MH 16.0 /2019 [facility] HEMATOLOGY Hct 32.2 36.0 - 03/14 MH 48.0 /2019 [facility] HEMATOLOGY MCV 88.8 80.0 - 03/14 MH 98.0 /2019 [facility] HEMATOLOGY MCH 29.6 27.0 - 03/14 MH 31.0 /2019 [facility] HEMATOLOGY MCHC 33.4 32.0 - 03/14 MH 36.0 /2019 [facility] HEMATOLOGY RDW 15.6 11.5 - 03/14 MH 14.5 /2019 [facility] HEMATOLOGY Platelet 251 133 - 450 03/14 [facility] HEMATOLOGY MPV 8.2 7.4 - 10.4 03/14 [facility] HEMATOLOGY Segs 89.1 45.0 - 03/14 MH 75.0 /2020 [facility] HEMATOLOGY Lymphocytes 7.7 20.0 - 03/14 MH 40.0 /2020 [facility] HEMATOLOGY Monocytes 3.1 2.0 - 12.0 03/14 [facility] HEMATOLOGY Basophils 0.1 0.0 - 1.0 03/14 [facility] HEMATOLOGY Neutrophils 15.0 1.5 - 8.1 / MH # /2020 [facility] HEMATOLOGY Lymphocytes 1.3 1.0 - 5.5 01/ MH # /2020 [facility] HEMATOLOGY Monocytes # 0.5 0.0 - [...] 03/13 [facility] CHEM PANEL eGFR 54 03/13 [facility] Comment: The [facility] eGFR is calculated using the CKD-EPI [...] 2.7 1.8 - 2.4 03/13 Lvl /2018 [facility] CHEM PANEL Phosphorus 6.5 2.5 - 4.5 03/13 [facility] HEMATOLOGY WBC 23.3 3.7 - 10.4 03/13 [facility] HEMATOLOGY RBC 3.78 4.20 - 03/13 MH 5.40 /2018 [facility] HEMATOLOGY Hgb 11.2 12.0 - 03/13 MH 16.0 [facility] Hct 33.5 36.0 - 03/13 MH 48.0 [facility] MCV 88.6 80.0 - 03/13 98.0 [facility] MCH 29.6 27.0 - 03/13 MH 31.0 [facility] MCHC 33.4 32.0 - 03/13 MH 36.0 [facility] RDW 15.1 11.5 - 03/13 14.5 [facility] Platelet 279 133 - 450 03/13 [facility] MPV 7.7 7.4 - 10.4 03/13 [facility] RBC Morph Normal Normal 03/13 (03/13/19 1:50 AM) [facility] HEMATOLOGY Plt Morph Normal Normal 03/13 (03/13/19 1:50 AM) [facility] HEMATOLOGY Segs 90.8 45.0 - 03/13 MH 75.0 [facility] Lymphocytes 6.7 20.0 - 03/13 MH 40.0 [facility] HEMATOLOGY Monocytes 2.5 2.0 - 12.0 03/13 [facility] HEMATOLOGY Eosinophils 0.0 0.0 - 4.0 03/13 [facility] HEMATOLOGY Basophils 0.0 0.0 - 1.0 03/13 [facility] HEMATOLOGY Neutrophils 21.1 1.5 - 8.1 03/13 # [facility] HEMATOLOGY Lymphocytes 1.6 1.0 - 5.5 03/13 MH # /2018 [facility] HEMATOLOGY Monocytes # 0.6 0.0 - 0.8 03/13 [facility] HEMATOLOGY Eosinophils 0.0 0.0 - 0.5 03/13 # /2018 [facility] HEMATOLOGY Basophils # 0.0 0.0 - 0.2 03/13 [facility] PARATHYROI Ca Ion WB 1.10 1.05 - 03/13 D PROFILE 1. [facility] PARATHYROI Ca Norm WB 1.14 1.05 - 03/13 D PROFILE . [facility] Gram Stain Less Than 25 Squamous Epithelial Cells/Lpf Report Rare WBC's [facility] Rare Gram Positive Rods Good Quality Specimen Culture: Few Yeast 03/13 Respiratory Normal Respiratory Alysia [facility] w/Gram Stain CARDIAC Troponin-I 0.13 0.00 - 03/12 ENZYMES 0. [facility] CHEM PANEL Phosphorus 2.6 2.5 - 4.5 03/12 [facility] CHEM PANEL Magnesium 2.5 1.8 - 2.4 03/12 Lvl [facility] CHEM PANEL Glucose Lvl 176 70 - 99 03/12 [facility] CHEM PANEL BUN 10 7 - 22 03/12 [facility] CHEM PANEL Creatinine 1.30 0.50 - 03/12 Lvl 1.40 [facility] CHEM PANEL Sodium Lvl 139 135 - 145 03/12 [facility] CHEM PANEL Potassium 2.2 3.5 - 5.1 03/12 Result Lv Comment: [facility] Critical Result(s) called to Ana at 03/12/2019 16:29 by tali. Read back OK. CHEM PANEL Chloride Lvl 102 95 - 109 03/12 [facility] CHEM PANEL CO2 22 24 - 32 03/12 [facility] CHEM PANEL AGAP 17.2 10.0 - 03/12 MH 20.0 [facility] CHEM PANEL Calcium Lvl 8.6 8.5 - 10.5 03/12 [facility] CHEM PANEL eGFR 49 03/12 Result Comment: The [facility] eGFR is calculated using the CKD-EPI [...] <0.05 0.00 - 03/12 n Lvl 0.10 [facility] BACTERIAL MRSA by PCR Negative 03/12 - SEROLOGY (03/12/19 8:32 AM) /2018 [facility] MOLECULAR Source Nasophrngl Swb 03/12 DIAGNOSTIC Respiratory *NA* [facility] Panel PCR (03/12/19 6:09 AM) MOLECULAR Influenza A Negative Negative 03/12 DIAGNOSTIC PCR *NA* [facility] (03/12/19 6:09 AM) MOLECULAR Influenza B Negative Negative 03/12 DIAGNOSTIC PCR *NA* [facility] (03/12/19 6:09 AM) MOLECULAR RSV PCR Negative Negative 03/12 DIAGNOSTIC *NA* [facility] (03/12/19 6:09 AM) CARDIAC Troponin-I 0.08 0.00 - 03/12 ENZYMES 0.40 [facility] CHEM PANEL B/C Ratio 8 6 - 25 03/12 [facility] CHEM PANEL Total 7.3 6.4 - 8.4 03/12 [facility] CHEM PANEL Albumin Lvl 3.6 3.5 - 5.0 03/12 [facility] CHEM PANEL Globulin 3.7 2.7 - 4.2 03/12 [facility] CHEM PANEL A/G Ratio 1.0 0.7 - 1.6 03/12 [facility] CHEM PANEL ALT 67 0 - 65 03/12 [facility] CHEM PANEL AST 29 0 - 37 03/12 [facility] CHEM PANEL Alk Phos 138 39 - 136 03/12 [facility] CHEM PANEL Bili Total 0.5 0.2 - 1.3 03/12 [facility] CHEM PANEL Magnesium 2.4 1.8 - 2.4 03/12 Lvl /2018 [facility] CHEM PANEL Phosphorus 2.4 2.5 - 4.5 03/12 [facility] HEMATOLOGY WBC 13.8 3.7 - 10.4 03/12 [facility] HEMATOLOGY RBC 3.99 4.20 - 03/12 MH 5.40 /2019 [facility] HEMATOLOGY Hgb 11.8 12.0 - 03/12 MH 16.0 [facility] HEMATOLOGY Hct 35.0 36.0 - 03/12 MH 48.0 [facility] HEMATOLOGY MCV 87.7 80.0 - 03/12 MH 98.0 /2018 [facility] MCH 29.6 27.0 - 03/12 MH 31.0 [facility] MCHC 33.7 32.0 - 03/12 MH 36.0 [facility] HEMATOLOGY RDW 15.0 11.5 - 03/12 MH 14.5 [facility] Platelet 252 133 - 450 03/12 [facility] HEMATOLOGY MPV 7.8 7.4 - 10.4 03/12 [facility] HEMATOLOGY Segs 92.7 45.0 - 03/12 MH 75.0 /2018 [facility] Lymphocytes 5.9 20.0 - 03/12 MH 40.0 [facility] HEMATOLOGY Monocytes 1.0 2.0 - 12.0 03/12 [facility] HEMATOLOGY Basophils 0.4 0.0 - 1.0 03/12 [facility] HEMATOLOGY Neutrophils 12.8 1.5 - 8.1 03/12 # /2018 [facility] HEMATOLOGY Lymphocytes 0.8 1.0 - 5.5 03/12 # [facility] HEMATOLOGY Monocytes # 0.1 0.0 - 0.8 03/12 [facility] HEMATOLOGY Basophils # 0.1 0.0 - 0.2 03/12 [facility] PARATHYROI Ca Ion WB 1.07 1.05 - 03/12 MH D PROFILE . [facility] PARATHYROI Ca Norm WB 1.06 1.05 - 03/12 MH D PROFILE . [facility] SPECIAL Hgb A1C 5.3 <=5.6 % 03/12 CHEMISTRY [facility] Pathology Reports No Data Provided for This Section Diagnostic Reports Report Value Date Source Abdomen AP DX PROCEDURE INFORMATION: 03/13/2019 [facility] Exam: XR Abdomen, 1 View Exam [...] pattern. Eric Tang MD On 03/13/2019 09:40:44; [facility] [id number] Chest 1view DX PROCEDURE INFORMATION: 03/12/2019 [facility] Exam: XR Chest, 1 View Exam [...] findings. Madison Sotelo MD On 03/12/2019 06:33:15; -[facility] [id number] Consultation Notes No Data Provided for This Section Discharge Summaries No Data Provided for This Section History and Physicals No Data Provided for This Section Vital Signs Vital Sign Value Date Comments Source Temperature Oral (F) 97.5 [facility] 91 03/14/2019 [facility] Respitory Rate 20 03/14/2019 [facility] Systolic (mm Hg) 129 03/14/2019 [facility] Diastolic (mm Hg) 75 03/14/2019 [facility] st Temperature Oral (F) 97.8 F 03/14[facility] 93 03/14/2019 [facility] Respitory Rate 20 03/14/2019 [facility] Systolic (mm Hg) 126 03/14/2019 [facility] Diastolic (mm Hg) 77 03/14/2019 [facility] st Temperature Oral (F) 97.8 F [facility]/14[facility] 97 03/14/2019 [facility] Respitory Rate 18 03/14/2019 [facility] Systolic (mm Hg) 134 03/14/2019 [facility] Diastolic (mm Hg) 75 03/14/[address] [facility] [address] Height 175.26 cm 03/12/2019 [facility] Weight 111.4 03/12/2019 [facility] BMI Calculated 36.27 03/12/2019 [facility] Encounters Location Location Encounter Encounter Reason Attending ADM DC Stat us Source Details Type Number For Provider Date Date Visit [facility] Inpatient [id number] Nehem[place] 03/12 03/14 Steve Leonard /2018 [facility] Procedures No Data Provided for This Section [...] act our office. Sincerely, Dilan Redding MD. [facility] Inpatient Hospitalist. [facility]. Plan of Care No Data Provided for This Section Social History Social History Date Source Social History TypeResponse 03/12/2019 [facility] Alcohol Never Substance Abuse Use: [...]
--- OUTSIDE RECORDS SUMMARY | 2020-01-15 14:14 | XMS REPORT | Continuity of Care Document ---
:1970 Author Organization [facility] t Address [address] [place] [address] Care Team Providers Name Role Phone Mujeeb Attending Clinician Muadityaeb Admitting Clinician Problems Condition Condition Condition Status Onset Resolution Last Treating Co mments Source Name Details Category Date Date Treatment Clinician Date COPD Diagnosis Active 2018-032019-03-19 Mem oria EXACERBATI -30 21:56:00 l ON COPD 00:00: [place] EXACERBATI 00 ON Active 9 [facility] Illness, Problem 2019-03-16 Mem oria unspecifie 22:50:06 l d Illness, Livan n unspecifie d 03/16/2019 [facility] ILLNESS, Diagnosis Active 2019-03-14 M emoria UNSPECIFIE 02:23:00 l D ILLNESS, Livan n UNSPECIFIE D Active [facility] CHRONIC Diagnosis Active 2019-03-19 Me moria OBSTRUCTIV 21:56:00 l E CHRONIC Steve PULMONARY OBSTRUCTIV DISEASE W E PULMONARY DISEASE W Active [facility] Allergies, Adverse Reactions, Alerts Allergy Allergy Status Severity Reaction(s) Onset Inactive Treating Comm ents Source Name Type Date Date Clinician penicill penicill Active Memori a ins ins l Steve iodine iodine Active Memoria topical topical l [place] Social History Social Habit Start Date Stop [...] tab, PO, l tablet 21:21: Daily, # Steve 11 30 tab, 0 Refill(s), Pharmacy: [id number] lisinopril 2020-0 Yes 20 mg = 1 Me moria 20 mg oral 1-01 tab, PO, l tablet 21:21: Daily, # [place] 08 30 tab, 0 Refill(s), Pharmacy: [facility] #[id number] albuterol 2020-0 Yes 2 puff, Memor ia 90 mcg/inh - INHALATION l inhalation 21:20: , QID, PRN H ermann aerosol 54 as needed for wheezing, # 1 ea, 3 Refill(s), Pharmacy: [facility] #[id number] predniSONE 2020-0 Yes 40 mg = 2 Me moria 20 mg oral 1-01 tab, PO, l tablet 21:20: Daily, X 3 Kimberly nn 51 day, # 6 tab, 0 Refill(s), Pharmacy: [facility] #[id number] Symbicort 2020-0 Yes 2 puff, Memor ia 160/4.5 03-14 INHALER, l inhalation 21:20: BID, # 1 Her castillo aerosol 45 ea, 3 with Refill(s), adapter Pharmacy: [facility] #[id number] lisinopril 2020-0 No 20 mg = 1 Me moria 20 mg oral 1-01 tab, PO, l tablet 20:21: Daily, # [place] 00 30 tab, 0 Refill(s) amLODIPine 2020-0 No 10 mg = 1 Me moria 10 mg oral 1-01 tab, PO, l tablet 20:21: Daily, # Steve 00 30 tab, 0 Refill(s) predniSONE 2020-0 [...] No 2 puff, Memor ia 90 mcg/inh -01 INHALATION l inhalation 20:21: , QID, PRN H ermann aerosol 00 as needed for wheezing, # 1 ea, 3 Refill(s) remove No Notes: Memoria patch 03-14 Remove old l 14:59: patch before applicatio n of new patch. WASTE: F/P - P Waste Black; E - P Waste Black Simethicone No Notes: Errol deon 03-14 (Same as: l 10:41: Mylicon) Zolpidem 2018-03 Yes 10 mg = 1 Errol deon tartrate 10 2-31 tab, PO, l MG Oral 19:55: Bedtime, 0 Herm abran Tablet 00 Refill(s) [Ambien] zinc 2018-03 No 220 mg = 1 Memoria sulfate 220 2 cap, PO, l mg oral 19:51: Daily, 0 Livan n capsule 00 Refill(s) Sulfamethox 2018-03 No amlodipine Memoria azole 800 2 , PO, l MG / 19:51: Q12H, 0 [place] Trimethopri 00 Refill(s) m 160 MG Oral Tablet Amlodipine 2018-03 No PO, Daily, M emoria 2-31 0 l 19:51: Refill(s) Nicotine 2018-03 No Notes: Memoria 2-31 (Same as: l 16:30: Habitrol) "Remove old patch before applicatio n of new patch" WASTE: F/P - P Waste Black; E - P Waste Black Lisinopril 2018-03 No Notes: Memor ia 2-31 (Same as: l 16:12: Prinivil, Zestril) Lisinopril 2018-03 No Notes: Memor ia 2-31 (Same as: l 15:32: Prinivil, Steve 00 Zestril) Metoprolol 2018-03 No Notes: Memor ia 2-31 (Same as: l 15:31: Lopressor) Push over 2 minutes metoprolol 2018-03 No Notes: Memor ia tartrate 2-31 (Same as: l 15:29: Lopressor) Reglan 2018-03 No Notes: Memoria 2-31 (Same as: l 15:27: Reglan) Azithromyci 2018-03 No Notes: Errol deon n 2-31 (Same As: l 15:00: Zithromax Steve 00 IV) azithromyci 2018-03 No Notes: Errol [...] kg, PRN Nausea, Start date: 03/13/19 7:46:00 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 Zofran 2018-03 No Notes: Memoria 2-31 (Same as: l 02:15: Zofran) MEDICATION WASTE Product Size: 4 mg Product Wasted: ___ mg Fentanyl 2018-03 No Notes: Memoria 2-31 (Same as: l 02:15: Sublimaze) [place] 00 Preservat arian free. Magnesium 2018-03 No Notes: Memori a Sulfate WASTE: F/P l 23:08: - Sink; E - [facility] Tra Qosmos 2018-03 No Notes: Memoria 2-30 pharmacy l [...] s with feeding tube less than 14 Romanian (Dobhoff, J-tube etc) and pediatric and patients. [...] PO, l 1.33 MEQ/ML 22:46: Drug form: Oral LIQ, ONCE, Solution Dosing Weight 111.4, kg, Priority: STAT, Start date: 03/12/19 16:46:00 GLOVE MACHINE OPERATOR, Stop date: 03/12/19 16:46:00 GLOVE MACHINE OPERATOR potassium 2018-03 No Notes: Memori a phosphate 2-30 (Same as: l 22:46: K Phosphate. ) Do not infuse phosphorou [...] IV 21:53: IVPB, Start date: 03/12/19 15:53:00 GLOVE MACHINE OPERATOR, Duration: 30 day, Stop date: 04/11/19 15:52:00 GLOVE MACHINE OPERATOR, PRN Line Flush, 0 Hydralazine 2018-03 No Notes: Errol deon 2-30 (Same as: l 20:58: Apresoline ) Push over 5 minutes Labetalol 2018-03 No Notes: Memori a 2-30 (Same as: l 20:58: Normodyne, [place] Trandate) Push over 2 minutes Give bolus over 2-3 minutes. methylPREDN 2018-03 No Notes: Errol deon ISolone 2-30 (Same l SODium 20:58: as:Solu-ME Kimberly nn SUCCinate 00 DROL, A-Methapre d) Ondansetron 2018-03 No Notes: Errol deon 2-30 (Same as: l 18:22: Zofran) MEDICATION WASTE Product Size: 4 mg Product Wasted: ___ mg Ipratropium 2018-03 No Notes: SEE Memoria [place] 0.2 2-30 RT l MG/ML 18:00: DOCUMENTAT Livan n Inhalant 00 ION (Same Solution as:Atroven t) Ipratropium 2018-03 No Notes: SEE Memoria [place] 0.2 2-30 RT l MG/ML 17:00: DOCUMENTAT [...] 2-30 Route: IV, l 14:43: Drug form: Steve 00 PDR/INJ, PRN, PRN Blood Glucose Results, Start date: 03/12/19 8:43:00 GLOVE MACHINE OPERATOR, Duration: 30 day, Stop date: 04/11/19 8:42:00 GLOVE MACHINE OPERATOR, 0 Humalog 2018-03 No Notes: Memoria 2-30 (Same as: l 14:42: Humalog) [place] 00 Roll in palms of hands gently; Do not shake vigorously . WASTE: F/P - Black; E - [facility] Trash Bin Stable for 28 days at room temperatur e. Expires in days from ____Date Dextrose 2018-03 No 50 mL, Memoria 50% in 2-30 Route: l Water IV 14:42: IVP, Start Her castillo 00 date: 03/12/19 8:42:00 GLOVE MACHINE OPERATOR, Duration: 30 day, Stop date: 04/11/19 8:41:00 GLOVE MACHINE OPERATOR, PRN Blood Glucose Results, 0 [...] s with feeding tube less than 14 Romanian (Dobhoff, J-tube etc) and pediatric and patients. Albuterol 2018- No Notes: Memori a 0.833 MG/ML 2-30 (Same as: l / 13:00: Duoneb) [place] Ipratropium 00 [place] 0.167 MG/ML Inhalant Solution [DuoNeb] Potassium 2018-03 No Notes: Memori a Chloride 2-30 (Same as: l 12:16: KCL) Steve 00 Infuse no faster than 10 mEq/hr if given peripheral ly. sodium 2018-03 No Notes: Memoria phosphate 2-30 Infuse l 12:16: over 4 [place]arton 00 hour. Do not infuse phosphorou s concurrent ly in the same line as TPN or IVF that contains calcium. For double lumen central lines, phosphorou s may be infused in a separate lumen from TPN. potassium 2018-03 No Notes: Memori a phosphate 2-30 (Same as: l 12:16: K [place] 00 Phosphate. ) Do not infuse phosphorou s concurrent ly in the same line as TPN or IVF that contains calcium. For double lumen central lines, phosphorou s may be infused in a separate lumen from TPN. 1 mMol phoshate has 1.47 mEq potassium Infuse over 4 hours potassium 2018-03 No Notes: Memori a phosphate-s 2-30 (Same as: l odium 12:16: Phos-NaK) [place]arton phosphate 00 Each 1.5 250 mg-280 gm pkt has mg-160 mg 250mg oral powder phosphorou for s. Mix reconstitut w/2.5oz ion water and stir. Magnesium 2018-03 No Notes: Memori a Sulfate 2-30 WASTE: F/P l 12:16: - Sink; E [place] 00 - Municipal Trash Bin Magnesium 2018-03 No Notes: Memori a Oxide 2-30 (Same as: l 12:16: Mag-Ox Steve 00 400) Magnesium oxide 270vi=610e g elemental magnesium Dose=____m g magnesium oxide (___mg elemental magnesium) Calcium 2018-03 No Notes: Memoria Gluconate 2-30 WASTE: F/P l 12:16: - Sink; E [place] 00 - Municipal Trash Bin Calcium 2018-03 No Notes: Memoria Carbonate 2-30 (Same As: l 500 MG 12:16: Tums) Steve Chewable 00 Calcium Tablet Carbonate 500 mg = 200 mg elemental calcium Dose = mg calcium carbonate ( mg elemental calcium) Lovenox 2018-03 No Notes: Memoria 2-30 Nurse to l 12:00: ensure Steve 00 documentat ion of patient education per [facility] ation policy. (Same as: Lovenox) Albuterol 2018-03 No Notes: SEE Me moria 0.83 MG/ML 2-30 RT l Inhalant 11:39: DOCUMENTAT Her castillo Solution 00 ION (Same as: Proventil) Albuterol 2018-03 No Notes: Memori a 0.833 MG/ML 2-30 (Same as: l / 11:35: Duoneb) Steve Ipratropium 00 [place] 0.167 MG/ML Inhalant Solution Saline 2018-03 No Notes: Memoria Flush 0.9% 30 preservati l 11:35: ve free. Steve 00 Acetaminoph 2018-03 No Notes: Do M emoria en not exceed l 11:34: 4 gm/day. [place]arton 00 (Same as: Tylenol) Solu-Medrol 2018-03 No Notes: Errol deon -30 (Same l 11:16: as:Solu-ME [place] 00 DROL, A-Methapre d) Vital Signs Vital Name Observation Time Observation Value Comments Source Temperature Oral (F) 2019-03-14 18:00:00 97.5 F [facility] [place] Heart Rate 2019-03-14 18:00:00 [facility] [place] Respitory Rate 2019-03-14 18:00:00 Memori al [place] Systolic (mm Hg) 2019-03-14 18:00:00 Errol rial [place] Diastolic (mm Hg) 2019-03-14 18:00:00 Mem orial Steve Temperature Oral (F) 2019-03-14 14:00:00 97.8 F [facility] [place] Heart Rate 2019-03-14 14:00:00 [facility] Steve Respitory Rate 2019-03-14 14:00:00 Memori al [place] Systolic (mm Hg) 2019-03-14 14:00:00 Errol rial Steve Diastolic (mm Hg) 2019-03-14 14:00:00 Mem orial [place] Temperature Oral (F) 2019-03-14 02:10:00 97.8 F [facility] [place] Heart Rate 2019-03-14 02:10:00 [facility] Steve Respitory Rate 2019-03-14 02:10:00 Memori al [place] Systolic (mm Hg) 2019-03-14 02:10:00 Errol rial [place] Diastolic (mm Hg) 2019-03-14 02:10:00 Mem orial [place] Height 2019-03-12 11:55:00 175.26 cm [facility] Steve Weight 2019-03-12 11:55:00 [facility] Steve BMI Calculated 2019-03-12 11:55:00 Memori al Steve Procedures This patient has no known procedures. Encounters Start End Encounter Admission Attending Care Care Encounter Source Date/Time Date/Time Type Type Clinicians Facility Department ID 2019-03-12 Inpatient [facility] [id number] MH W 05:10:00 2019-03-12 2019-03-14 Outpatient Aisha [facility] [id number] 05:10:00 17:08:00 Nehemias 64 Results Test Description Test Time Test [...] code = MCH) 29.6 pg 27.0-31.0 [facility] BigxqnwYIKMSAQMCT2781-66-48 10:10:0033.4[facility]OLOG[facility] 2019-03-14 10:10:0015.6[facility] MbmcgldBUVNPXJJBG5337-97-35 10:10:47596Nvfhmkua VqjvmarDYTFCIDVUV2369-58-81 10:10:008.2[facility] EigzeecHJRYHJRLHD5094-19-16 10:10:0089.1[facility] CptruoiKSIHRYDHXQ0266-75-20 10:10:007.7[facility] [place] IGVTLTADBO4843-03-94 10:10:003.1[facility] XuimlitCHXNHILXII3263-13-43 10:10:000.1 [facility] PqpikniFEIFJJTHKK9589-90-27 10:10:0015.0[facility]annHEMATOLOGY 2019-03-14 10:10:001.3[facility] CqdrndeMBWQJODSPJ6468-48-98 10:10:000.5[facility] HermannCHEM ZKDVJ2797-50-41 07:50:30683Brmsnmog HermannCHEM KTYAV1627-75-19 07:50:0016[facility]annCHEM VFJWV7214-83-17 07:50:001.20[facility] HermannCHEM OALOS2472-53-32 07:50:77432Dkfvflne HermannCHEM TDNMF8846-07-94 07:50:004.0 [facility]annCHEM OKAWO7696-89-89 07:50:79755Rdwvjmup HermannCHEM PANEL 2019-03-13 07:50:0029[facility] HermannCHEM XGPVP4456-35-83 07:50:0011.0[facility]annCHEM AEHVF5006-99-19 07:50:009.2[facility]annCHEM QTXHD8879-16-37 07:50:00 Test Item Value Reference Range Interpretation Comments B/C Ratio (test code = B/C Ratio) 13 1 6-25 [facility]annCHEM FGTOP8442-91-45 07:50:006.6[facility]annCHEM PANEL 2019-03-13 07:50:003.3[facility]annCHEM EEPWO5633-29-80 07:50:003.3[facility]annCHEM TADHB7770-50-07 07:50:00 Test Item Value Reference Range Interpretation Comments A/G Ratio (test code = A/G Ratio) 1.0 1 0.7-1.6 [facility]annCHEM IUHXD2426-24-63 07:50:0056[facility]annCHEM PANEL 2019-03-13 07:50:0026[facility] HermannCHEM URCNK2696-28-04 07:50:74952Uzbtoafl HermannCHEM IXLZW1962-87-69 07:50:000.7[facility]annCHEM OGXAS0980-09-01 07:50:0054[facility]annCHEM FTLAQ8744-85-79 07:50:002.7[facility]annCHEM XEKJV3695-41-73 07:50:006.5[facility] IdukdpsCLNEBVFTUH6174-44-08 07:50:0023.3 [facility] FpdxrhvBZOUNUQWLO0375-87-90 07:50:003.78[facility]annHEMATOLOGY 2019-03-13 07:50:0011.2[facility] TonaaydHSGKDQFKFC2545-80-94 07:50:0033.5[facility] IlvyjrfXDEVQLXTNE7988-65-55 07:50:0088.6[facility] FyhuowpRNCGNDKAWL6871-13-78 07:50:00 Test Item Value Reference Range Interpretation Comments MCH (test code = MCH) 29.6 pg 27.0-31.0 [facility] DhgmizbVEQYAZLVHP1588-79-45 07:50:0033.4[facility] HermannHEMATOLOGY 2019-03-13 07:50:0015.1[facility] FxzonefTGYXTXSCTG5600-60-79 07:50:61012Gdonjeuq YgmepyaWCCJGSYICK5701-86-03 07:50:007.7[facility] VbhkbpnNLEVXYCQWJ4176-65-26 07:50:00Normal (03/13/19 1:50 AM)[facility] TaxeoyaXMKDTAVEKO1151-07-80 07:50:00 Normal (03/13/19 1:50 AM)[facility] WresodmOOGRNSFLGL7518-87-89 07:50:0090.8 [facility] ZsswvxzKFIPRMWOVT3241-08-01 07:50:006.7[facility] HermannHEMATOLOGY 2019-03-13 07:50:002.5[facility] IdfuoumRPVLHHYATO0086-56-95 07:50:000.0[facility] EdfqevyGGMDSXHBHI1296-40-26 07:50:000.0[facility] JhcjnetPLKADYIQBM6267-78-34 07:50:0021.1[facility] GtnbqtmDNEFFWOLKI0081-98-42 07:50:001.6[facility] Steve YXXPTTWNWA1340-52-83 07:50:000.6[facility] YjvqoyiYBBRBXXVCO3270-75-50 07:50:000.0 [facility] DluarxgNEMKLEDBGR5448-99-10 07:50:000.0[facility] HermannPARATHYROID XITWTTS3311-07-57 07:50:001.10[facility] HermannPARATHYROID DFOFVLK7048-15-21 07:50:001.14[facility] HermannCARDIAC ESOIZKH3411-40-39 18:48:000.13[facility] HermannCHEM ILVJU1091-33-25 18:48:002.6[facility] HermannCHEM MXMKO1429-81-45 18:48:002.5[facility] HermannCHEM WUORO7761-48-72 18:48:29703Zsvohtbe HermannCHEM LJILR4988-20-94 18:48:0010[facility] HermannCHEM VELIL6705-77-17 18:48:001.30 [facility]annCHEM BAQPR7990-07-35 18:48:16408Knjuygeg HermannCHEM PANEL 2019-03-12 18:48:002.2[facility] HermannCHEM VYEIG4580-21-43 18:48:25484Tgdlfvgt HermannCHEM PHQSA4487-96-79 18:48:0022[facility] HermannCHEM GDWTA8398-64-70 18:48:0017.2[facility] HermannCHEM OKIBG4403-75-02 18:48:008.6[facility] HermannCHEM CLVZR7918-88-97 18:48:0049[facility]annCHEM SFUCG5792-72-52 18:48:00<0.05 [facility] HermannBACTERIAL - BYOARCGV3437-23-73 14:32:00Negative (03/12/19 8:32 AM)[facility] HermannMOLECULAR CDBUYMEFJS3816-44-07 12:09:00Nasophrngl Swb *NA*(03/12/19 6:09 AM)[facility] HermannMOLECULAR LJRQPFDHXY0047-27-50 12:09:00 Negative *NA*(03/12/19 6:09 AM)[facility] HermannMOLECULAR MTJYOKBECT7974-33-10 12:09:00Negative *NA*(03/12/19 6:09 AM)[facility] HermannMOLECULAR DIAGNOSTIC 2019-03-12 12:09:00Negative *NA*(03/12/19 6:09 AM)[facility] HermannCARDIAC LVFHLEE2246-54-62 11:32:000.08[facility] HermannCHEM UULAP1066-37-80 11:32:00 Test Item Value Reference Range Interpretation Comments B/C Ratio (test code = B/C Ratio) 8 1 6-25 [facility]annCHEM YNERS3296-80-23 11:32:007.3[facility] HermannCHEM PANEL 2019-03-12 11:32:003.6[facility] HermannCHEM GIZME8844-87-96 11:32:003.7[facility] HermannCHEM LTFJL3242-43-78 11:32:00 Test Item Value Reference Range Interpretation Comments A/G Ratio (test code = A/G Ratio) 1.0 1 0.7-1.6 [facility]annCHEM JZPVY4022-61-60 11:32:0067[facility] HermannCHEM PANEL 2019-03-12 11:32:0029[facility] HermannCHEM VGHEB9289-76-46 11:32:12297Kqhvplhz HermannCHEM BWHMF2792-94-46 11:32:000.5[facility] HermannCHEM BTJOS8804-31-50 11:32:002.4[facility] HermannCHEM IMWPB5704-86-15 11:32:002.4[facility] [place] UTWJBBKJUT4138-73-80 11:32:0013.8[facility] BaqqfnlLVLYLMOWMR9241-42-33 11:32:00 3.99[facility] BisdbfcCUCMDQNCRI0790-39-93 11:32:0011.8[facility] HermannHEMATOLOGY 2019-03-12 11:32:0035.0[facility] ZsgusdrIHLEDWTSCW4171-74-95 11:32:0087.7[facility] EixsfyzXQQDVJALZH1275-32-65 11:32:00 Test Item Value Reference Range Interpretation Comments MCH (test code = MCH) 29.6 pg 27.0-31.0 [facility] AdjvdmcNXXIZUQOIX5474-14-69 11:32:0033.7[facility] HermannHEMATOLOGY 2019-03-12 11:32:0015.0[facility] CswkevwLTOPOFOFIE0347-81-79 11:32:56488Ccppbwku SotrrgcPFGABBALKA1864-16-48 11:32:007.8[facility] AgskcnxWSWXEKDRBG9065-02-25 11:32:0092.7[facility] BpamgugGPYWKXBZCB9591-22-42 11:32:005.9[facility] Steve DKKATINAXN7791-17-84 11:32:001.0[facility] TpixhxhYBYFDIPQWD0040-12-12 11:32:000.4 [facility] OphtqygIHUMMMOEGF2381-30-31 11:32:0012.8[facility] HermannHEMATOLOGY 2019-03-12 11:32:000.8[facility] AasojwtVJCORJSCMH9792-66-28 11:32:000.1[facility] WyjsbooFKNYOYBVZG1916-63-53 11:32:000.1[facility] HermannPARATHYROID PROFILE 2019-03-12 11:32:001.07[facility] HermannPARATHYROID TZIDISE4592-46-59 11:32:00 1.06[facility] HermannSPECIAL IMOOVXXVV3316-71-60 11:32:005.3[facility] Steve
[2020-01-15 14:32] LABS: Absolute Lymphocytes (CBC) 1.6 K/uL (0.7-4.9); Basophils % 0.8 % (0-1.3); Hematocrit 31.5 % (36.0-45.0); Lymphocytes % 12.3 % (15.3-44.8); RBC Red Blood Cell Count 3.76 M/uL (3.86-4.86)
[2020-01-15 14:35] LABS: Protime INR 2.05
[2020-01-15 14:52] LABS: Magnesium 1.9 mg/dL (1.8-2.4); Troponin (Emerg Dept Use Only) 0.02 ng/mL (0.0-0.045)
[2020-01-15 14:53] LABS: Potassium 2.6 mmol/L (3.5-5.1)
[2020-01-15] MEDS ORDERED: KCL 20 MEQ/100 mL IVPB 20 MEQ/100 ML BAG IV ONE ×2 (16:06→22:56)
[2020-01-15] MEDS ORDERED: Levofloxacin 750mg IV 750 MG/150 ML BAG IV ONE (16:06)
--- NOTE | 2020-01-15 16:14 | ER ---
Nurse's Notes [facility] Name: Paola De La Paz Age: 49 yrs Sex: Female : 1970 Arrival Date: 01/15/2020 Time: 13:34 Bed 25 Private MD: Diagnosis: Hypoxemia;Dyspnea, unspecified;Pleural effusion, not elsewhere classified Presentation: 01/14 13:34 Chief complaint: EMS states: Pt called EMS c/o difficulty breathing, hospitalized ph approx 2 weeks ago for pneumonia, also has hx of blood clots, A\\T\\A administered en route to ED, pulse ox on ambulance not working so no room air saturation obtained, upon arrival to ED pt is 88% RA, tachypneic at 26 breaths per min, noted to be in a tripod position, also reports chest pain. Coronavirus screen: Client denies travel out of the [place] in the last 14 days. difficulty breathing, Client presents with at least one sign or symptom that may indicate coronavirus-19. Standard/surgical mask placed on the client. Provider contacted for isolation considerations. The client reports previous COVID testing was negative. Ebola Screen: No symptoms or risks identified at this time. Initial Sepsis Screen: Does the patient meet any 2 criteria? RR > 20 per min. HR > 90 bpm. Does the patient have a suspected source of infection? Yes: Productive cough/pneumonia. Risk Assessment: Do you want to hurt yourself or someone else? Patient reports no desire to harm self or others. Onset of symptoms was January 15, 2020. 13:34 Method Of Arrival: EMS: [facility] 13:34 Acuity: WILLIAM 2 ph Triage Assessment: 19:30 Respiratory: Reports shortness of breath labored breathing Onset: The symptoms/episode wh began/occurred gradually, the patient has mild shortness of breath. 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 - Social history:: Smoking status: Patient reports the use of cigarette tobacco products, " a few a day". - Family history:: not pertinent. - Hospitalizations: : The patient was recently seen at [facility]. Screenin:43 Abuse screen: Denies threats or abuse. Denies injuries from another. Nutritional ph screening: No deficits noted. Tuberculosis screening: No symptoms or risk factors identified. Fall Risk None identified. Assessment: 13:39 Reassessment: code sepsis called overhead. ph 13:40 Reassessment: RT at bedside place pt on bi-pap. ph 13:42 General: Appears uncomfortable, obese, well groomed, Behavior is cooperative, anxious, ph Denies fever. Pain: Complains of pain in chest. Neuro: Level of Consciousness is awake, alert, obeys commands, Oriented to person, place, time, situation. Cardiovascular: Reports chest pain, lightheadedness, shortness of breath, Capillary refill < 3 seconds in bilateral fingers Patient's skin is warm and dry. Respiratory: Airway is patent Respiratory effort is labored, using tripod position, Respiratory pattern is tachypnea. GI: No signs and/or symptoms were reported involving the gastrointestinal system. Derm: Skin is intact, Skin is pink, warm \\T\\ dry. Musculoskeletal: Circulation, motion, and sensation intact. Range of motion: intact in all extremities. 14:09 Reassessment: Patient appears in no apparent distress at this time. Patient and/or ph family updated on plan of care and expected duration. Pain level reassessed. Patient is alert, oriented x 3, equal unlabored respirations, skin warm/dry/pink. Pt appears more comfortable, able to sit back in bed, respirations decreased to 21, Spo2 99% on bipap. 15:00 Reassessment: Patient appears in no apparent distress at this time. Patient and/or ph family updated on plan of care and expected duration. Pain level reassessed. Patient is alert, oriented x 3, equal unlabored respirations, skin warm/dry/pink. Pt remains on bi-pap. 16:00 Reassessment: Patient appears in no apparent distress at this time. No changes from ph previously documented assessment. Patient and/or family updated on plan of care and expected duration. Pain level reassessed. Patient is alert, oriented x 3, equal unlabored respirations, skin warm/dry/pink. 17:00 Reassessment: Patient appears in no apparent distress at this time. Patient and/or ph family updated on plan of care and expected duration. Pain level reassessed. Patient is alert, oriented x 3, equal unlabored respirations, skin warm/dry/pink. Pt resting comfortably in bed, remains on bi-pap, awaiting COVID swab results. 18:33 Reassessment: Patient appears in no apparent distress at this time. No changes from previously documented assessment. Patient and/or family updated on plan of care and expected duration. Pain level reassessed. Patient is alert, oriented x 3, equal unlabored respirations, skin warm/dry/pink. 19:30 General: Appears in no apparent distress. Behavior is calm, cooperative, appropriate wh for age. Pain: Denies pain. Neuro: Level of Consciousness is awake, alert, obeys commands, Oriented to person, place, time, situation, Appropriate for age. Cardiovascular: Heart tones S1 S2 Rhythm is sinus rhythm. Respiratory: Airway is patent Respiratory effort is even, Respiratory pattern is regular, Breath sounds with rales. GI: Abdomen is flat, non-distended. : No signs and/or symptoms were reported regarding the genitourinary system. EENT: No signs and/or symptoms were reported regarding the EENT system. Derm: Skin is intact, is healthy with good turgor, Skin is pink, warm \\T\\ dry. normal. Musculoskeletal: Circulation, motion, and sensation intact. 19:35 Reassessment: Pt remains on BIPAP no signs of respiratory distress noted. Vital Signs: 13:34 BP 218 / 114; Pulse 132; Resp 26; Temp 98.6(TE); Pulse Ox 88% on R/A; Weight 99.79 kg; ph Height 5 ft. 1 in. (154.94 cm); 14:11 Pulse 112; Resp 22; Pulse Ox 99% on 35% BiPAP; ph 15:02 BP 179 / 106; Pulse 110; Resp 22; Pulse Ox 98% on 35% BiPAP; ph 16:00 BP 179 / 106; Pulse 101; Resp 22; Pulse Ox 99% on 35% BiPAP; ph 17:00 BP 176 / 110; Pulse 100; Resp 24; Pulse Ox 99% on 35% BiPAP; ph 18:34 BP 169 / 108; Pulse 98; Resp 22; Pulse Ox 100% on 35% BiPAP; ph 19:30 BP 155 / 100; Pulse 96; Resp 20; Pulse Ox 95% on R/A; wh 13:34 Body Mass Index 41.57 (99.79 kg, 154.94 cm) ph Vitals: 15:02 Cardiac Rhythm Assessment Sinus tach. ph ED Course: 13:34 Patient arrived in ED. ph 13:35 Fuad Cummings PA is PHCP. cp 13:35 Anup Rivera MD is Attending Physician. cp 13:39 Triage completed. ph 13:41 Arm band placed on Patient placed in an exam room, on a stretcher, on oxygen, on ph monitoring and evaluation advisor, on pulse oximetry. 13:43 Patient has correct armband on for positive identification. Placed in gown. Bed in low ph position. Call light in reach. Side rails up X2. lunchroom monitor on. Pulse ox on. NIBP on. Door closed. Noise minimized. Warm blanket given. 14:08 Nikole Wlaler RN is Primary Nurse. ph 15:04 Maintain EMS IV. Dressing intact. Good blood return noted. Site clean \\T\\ dry. Gauge \\T\\ ph site: 20 RAC. 15:23 EKG done, by ED staff, reviewed by Anup Rivera MD. jp3 15:39 XRAY CXR (1 view) In Process Unspecified. EDMS 16:13 Igor Jason MD is Hospitalizing Provider. rn 16:26 CT Chest For PE Angio In Process Unspecified. EDMS 19:37 Primary Nurse role handed off by Nikole Waller, LUIGI mw2 20:00 No provider procedures requiring assistance completed. Patient admitted, IV remains in place. 20:33 Ambrose Castro is Primary Nurse. 01/15 07:10 Primary Nurse role handed off by Ambrose Castro 07:10 Chacho Le, RN is Primary Nurse. bp Administered Medications: 01/14 14:05 Drug: SOLU-Medrol 125 mg Route: IVP; Site: right antecubital; ph 17:01 Follow up: Response: No adverse reaction ph 14:05 Drug: Xopenex (3) 1.25 mg Route: Inhalation; ph 17:01 Follow up: Response: No adverse reaction ph 17:00 Drug: Potassium Chloride 20 mEq Route: IV; Rate: calculated rate; Site: right ph antecubital; 18:36 Follow up: Response: No adverse reaction; IV Status: Completed infusion ph 17:00 Drug: LevaQUIN 750 mg Volume: 150 ml; Route: IVPB; Infused Over: 90 mins; Site: right ph antecubital; 18:37 Follow up: Response: No adverse reaction; IV Status: Completed infusion ph 18:36 Drug: Lasix 60 mg Route: IVP; Site: right antecubital; ph 20:44 Follow up: Response: No adverse reaction Outcome: 16:14 Decision to Hospitalize by Provider. rn 19:30 Admitted to ER Hold. Please see [facility] for further documentation. 19:30 Condition: stable 19:30 Instructed on the need for admit. 01/15 18:31 Patient left the ED. bd Signatures: Dispatcher [employer] EDMS Hailee Britton Roman, MD MD rn Hall, Patricia, RN RN ph Page, Corey, PA PA cp Habalo, Winsy Chacho Le RN RN Do Miranda 2 Mahad Choudhary jp3
--- NOTE | 2020-01-15 16:15 | EDPHYS ---
Physician Documentation [facility] Name: Paola De La Paz Age: 49 yrs Sex: Female : 1970 Arrival Date: 01/15/2020 Time: 13:34 Bed 25 Private MD: ED Physician Anup Rivera HPI: 01/14 13:55 This 49 yrs old Female presents to ER via EMS with complaints of Breathing rn Difficulty. 13:55 The patient has shortness of breath at rest, with light activity. Onset: The rn symptoms/episode began/occurred today. Duration: The symptoms are continuous. The patient's shortness of breath is aggravated by exertion, light activity. Severity of symptoms: At their worst the symptoms were moderate in the emergency department the symptoms are unchanged. The patient has experienced similar episodes in the past. Reports never felt like got better over recent pneumonia and admission to hospital, but got worse today, + sob, + cough, no fever. . 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 - Social history:: Smoking status: Patient reports the use of cigarette tobacco products, " a few a day". - Family history:: not pertinent. - Hospitalizations: : The patient was recently seen at [facility]. ROS: 13:55 Constitutional: Negative for fever, chills, and weight loss, Eyes: Negative for injury, rn pain, redness, and discharge, Neck: Negative for injury, pain, and swelling, Cardiovascular: Negative for chest pain, palpitations, and edema, Respiratory: + sob and cough Abdomen/GI: Negative for abdominal pain, nausea, vomiting, diarrhea, and constipation, MS/Extremity: Negative for injury and deformity, Skin: Negative for injury, rash, and discoloration, Neuro: Negative for headache, numbness, tingling, and seizure. Exam: 13:55 Constitutional: This is a well developed, well nourished patient who is awake, alert, rn tripoding and leaning forward on bed. Head/Face: Normocephalic, atraumatic. ENT: No stridor Cardiovascular: Tachycardic, regular Respiratory: + tachypneic, + mild retractions Abdomen/GI: soft, non-tender Skin: Warm, dry MS/ Extremity: Pulses equal, no cyanosis. Neurovascular intact. Full, normal range of motion. Equal circumference. Neuro: Awake and alert, GCS 15 15:28 ECG was reviewed by the Attending Physician. rn Vital Signs: 13:34 BP 218 / 114; Pulse 132; Resp 26; Temp 98.6(TE); Pulse Ox 88% on R/A; Weight 99.79 kg; ph Height 5 ft. 1 in. (154.94 cm); 14:11 Pulse 112; Resp 22; Pulse Ox 99% on 35% BiPAP; ph 15:02 BP 179 / 106; Pulse 110; Resp 22; Pulse Ox 98% on 35% BiPAP; ph 16:00 BP 179 / 106; Pulse 101; Resp 22; Pulse Ox 99% on 35% BiPAP; ph 17:00 BP 176 / 110; Pulse 100; Resp 24; Pulse Ox 99% on 35% BiPAP; ph 18:34 BP 169 / 108; Pulse 98; Resp 22; Pulse Ox 100% on 35% BiPAP; ph 19:30 BP 155 / 100; Pulse 96; Resp 20; Pulse Ox 95% on R/A; wh 13:34 Body Mass Index 41.57 (99.79 kg, 154.94 cm) ph MDM: 13:38 Patient medically screened. rn 16:11 Differential diagnosis: CHF exacerbation, Chronic Obstructive Pulmonary Disease rn Pneumothorax pulmonary edema, Pulmonary Embolism reactive airway disease, Sepsis. Data reviewed: vital signs, nurses notes, lab test result(s), EKG, radiologic studies, plain films, and as a result, I will admit patient. Counseling: I had a detailed discussion with the patient and/or guardian regarding: the historical points, exam findings, and any diagnostic results supporting the discharge/admit diagnosis, lab results, radiology results, the need for further work-up and treatment in the hospital. Response to treatment: the patient's symptoms have markedly improved after treatment, and as a result, I will admit patient. Admission orders: after a detailed discussion of the patient's condition and case, the admit orders are written by me. ED course: Pt markedly improved on Bipap, will admit to Dr. Jason for further treatment. Pneumonia vs COPD vs another PE. States ran out of xarelto, now taking coumadin lately. . 01/14 13:38 Order name: ABG; Complete Time: 14:54 rn 01/14 13:38 Order name: Blood Culture Adult (2) rn 01/14 13:38 Order name: BMP; Complete Time: 15:02 rn 01/14 13:38 Order name: CBC with Diff; Complete Time: 14:54 rn 01/14 13:38 Order name: Magnesium; Complete Time: 15:02 rn 01/14 13:38 Order name: NT PRO-BNP; Complete Time: 15:02 rn 01/14 13:38 Order name: PT-INR; Complete Time: 14:54 rn 01/14 13:38 Order name: Ptt, Activated; Complete Time: 14:54 rn 01/14 13:38 Order name: Troponin (emerg Dept Use Only); Complete Time: 15:02 rn 01/14 13:38 Order name: COVID-19 rn 01/14 13:38 Order name: Procalcitonin; Complete Time: 15:02 rn 01/14 14:06 Order name: Lactate; Complete Time: 14:54 rn 01/14 16:36 Order name: CBC with Automated Diff EDMS 01/14 16:36 Order name: CBC with Automated Diff EDMS 01/14 16:36 Order name: Comprehensive Metabolic Panel EDMS 01/14 16:36 Order name: Comprehensive Metabolic Panel EDMS 01/14 16:36 Order name: Lactate EDMS 01/14 16:36 Order name: Lactate EDMS 01/14 16:37 Order name: Lipid Profile EDMS 01/14 16:37 Order name: Lipid Profile EDMS 01/14 16:37 Order name: Magnesium EDMS 01/14 16:37 Order name: Magnesium EDMS 01/14 16:37 Order name: NT PRO-BNP EDMS 01/14 16:37 Order name: NT PRO-BNP EDMS 01/14 16:37 Order name: Phosphorus EDMS 01/14 16:37 Order name: Phosphorus EDMS 01/14 16:37 Order name: Protime (+INR) EDMS 01/14 16:37 Order name: Protime (+INR) EDMS 01/14 16:37 Order name: PTT, Activated Partial Thromb EDMS 01/14 16:37 Order name: PTT, Activated Partial Thromb EDMS 01/14 13:38 Order name: Call RT; Complete Time: 13:41 rn 01/14 13:38 Order name: BIPAP rn 01/14 13:38 Order name: XRAY CXR (1 view) rn 01/14 13:38 Order name: EKG; Complete Time: 13:39 rn 01/14 13:38 Order name: Cardiac monitoring; Complete Time: 14:09 rn 01/14 13:38 Order name: EKG - Nurse/Tech; Complete Time: 15:23 rn 01/14 13:38 Order name: IV Saline Lock; Complete Time: 14:09 rn 01/14 13:38 Order name: Labs collected and sent; Complete Time: 14:09 rn 01/14 13:38 Order name: O2 Per Protocol; Complete Time: 14:09 rn 01/14 13:38 Order name: O2 Sat Monitoring; Complete Time: 14:09 rn 01/14 15:24 Order name: CT Chest For PE Angio rn 01/14 16:36 Order name: NPO; Complete Time: 17:00 EDMT 01/14 16:37 Order name: Troponin I EDMT 01/14 16:37 Order name: Troponin I EDMT 01/14 16:37 Order name: Troponin I EDMT 01/14 21:41 Order name: Potassium EDMT 01/15 08:42 Order name: Lactate Sepsis 2 HR Follow-up EDMS 01/15 08:51 Order name: Manual Differential EDMS 01/15 14:29 Order name: Gram Stain--Anaerobic Bottle EDMS 01/15 17:53 Order name: Potassium EDMS EC:28 Rate is 108 beats/min. Rhythm is regular. QRS [place] is Normal. [place] interval is normal. rn QRS interval is normal. QT interval is normal. No Q waves. T waves are Normal. No ST changes noted. Clinical impression: Sinus tachycardia. Interpreted by me. Reviewed by me. Administered Medications: 14:05 Drug: SOLU-Medrol 125 mg Route: IVP; Site: right antecubital; ph 17:01 Follow up: Response: No adverse reaction ph 14:05 Drug: Xopenex (3) 1.25 mg Route: Inhalation; ph 17:01 Follow up: Response: No adverse reaction ph 17:00 Drug: Potassium Chloride 20 mEq Route: IV; Rate: calculated rate; Site: right ph antecubital; 18:36 Follow up: Response: No adverse reaction; IV Status: Completed infusion ph 17:00 Drug: LevaQUIN 750 mg Volume: 150 ml; Route: IVPB; Infused Over: 90 mins; Site: right ph antecubital; 18:37 Follow up: Response: No adverse reaction; IV Status: Completed infusion ph 18:36 Drug: Lasix 60 mg Route: IVP; Site: right antecubital; ph 20:44 Follow up: Response: No adverse reaction Disposition: 16:11 Critical Care:. rn Disposition: 01/15/20 16:14 Hospitalization ordered by Igor Jason for Inpatient Admission. Preliminary diagnosis are Hypoxemia, Dyspnea, unspecified, Pleural effusion, not elsewhere classified. - Bed requested for Telemetry/MedSurg (Inpatient). - Status is Inpatient Admission. bd - Condition is Stable. - Problem is an acute exacerbation. - Symptoms have improved. Critical care time excluding procedures: 16:11 Critical care time: Bedside Care: 30 minutes. Total time: 30 minutes rn Signatures: Dispatcher [employer] EDMS Hailee Britton Kimberly, RN RN Anup Kelly MD MD rn Lasagna, Tonya, LUIGI RN [facility] Nikole Waller, RN RN Ambrose Castro Corrections: (The following items were deleted from the chart) 16:48 16:14 Hospitalization Ordered by Igor Jason MD for Inpatient Admission. Preliminary rn diagnosis is Hypoxemia; Dyspnea, unspecified. Bed requested for Telemetry/MedSurg (Inpatient). Status is Inpatient Admission. Condition is Stable. Problem is an acute exacerbation. Symptoms have improved. rn 19:39 16:48 01/15/2020 16:14 Hospitalization Ordered by Igor Jason MD for Inpatient tl1 Admission. Preliminary diagnosis is Hypoxemia; Dyspnea, unspecified; Pleural effusion, not elsewhere classified. Bed requested for Telemetry/MedSurg (Inpatient). Status is Inpatient Admission. Condition is Stable. Problem is an acute exacerbation. Symptoms have improved. rn 01/15 17:03 01/14 19:39 01/15/2020 16:14 Hospitalization Ordered by Igor Jason MD for Inpatient bd Admission. Preliminary diagnosis is Hypoxemia; Dyspnea, unspecified; Pleural effusion, not elsewhere classified. Bed requested for [facility] ER HOLD. Status is Inpatient Admission. Condition is Stable. Problem is an acute exacerbation. Symptoms have improved. tl1 01/15 17:12 17:03 01/15/2020 16:14 Hospitalization Ordered by Igor Jason MD for Inpatient kl Admission. Preliminary diagnosis is Hypoxemia; Dyspnea, unspecified; Pleural effusion, not elsewhere classified. Bed requested for Telemetry/MedSurg (Inpatient). Status is Inpatient Admission. Condition is Stable. Problem is an acute exacerbation. Symptoms have improved. bd 17:13 17:12 01/15/2020 16:14 Hospitalization Ordered by Igor Jason MD for Inpatient kl Admission. Preliminary diagnosis is Hypoxemia; Dyspnea, unspecified; Pleural effusion, not elsewhere classified. Bed requested for Telemetry/MedSurg (Inpatient). Status is Inpatient Admission. Condition is Stable. Problem is an acute exacerbation. Symptoms have improved. kl 18:31 17:13 01/15/2020 16:14 Hospitalization Ordered by Igor Jason MD for Inpatient bd Admission. Preliminary diagnosis is Hypoxemia; Dyspnea, unspecified; Pleural effusion, not elsewhere classified. Bed requested for Telemetry/MedSurg (Inpatient). Status is Inpatient Admission. Condition is Stable. Problem is an acute exacerbation. Symptoms have improved. kl
[2020-01-15] MEDS ORDERED: ACETAMINOPHEN 500 MG TAB PO PRN (16:31)
[2020-01-15] MEDS ORDERED: ONDANSETRON 4 MG/2 ML VIAL IV PRN (16:31)
--- NOTE | 2020-01-15 16:36 | RAD REPORT ---
EXAM DESCRIPTION: CT - Chest For Pe Angio - 01/15/2020 4:26 pm CLINICAL HISTORY: DYSPNEA COMPARISON: Chest For Pe Angio dated 12/30/2019; Chest Single View dated 01/15/2020 TECHNIQUE: Dynamically enhanced 3 mm thick images of the chest were obtained during administration o f approximately 150mL Isovue 370 IV contrast. Coronal and oblique MIP reconstruction images were gene rated and reviewed. Exam utilizes a protocol to evaluate the pulmonary arterial tree. All CT scans are performed using dose optimization technique as appropriate and may include automated exposure control or mA/KV adjustment according to patient size. FINDINGS: No pulmonary emboli are identified. The aorta as imaged shows no acute or suspicious finding. No pericardial thickening or effusion. Interstitial thickening is present throughout the lung oates accentuated by respiratory motion. Patc hy airspace opacification is present in the medial right suprahilar region. There are ground-glass op acities scattered in both upper lobes and in the left lower lobe. There is atelectasis in the posteri or gutter on the right. Small bilateral pleural effusions are present. No pneumothorax. No mediastinal or hilar suspicious masses. No chest wall masses or abnormal axillary lymphadenopathy. Heart size normal. No pericardial effusion. Left ventricular myocardium is borderline hypertrophic. CT sensitivity for this diagnosis is limited. IMPRESSION: No pulmonary emboli identified. Bilateral pleural effusions, interstitial opacification throughout the lung oates and scattered airs pace opacities. Failure/volume overload is the primary consideration. Pneumonia is a lesser in likelihood. Pattern is not highly suspicious for COVID-19 pneumonia.
--- NOTE | 2020-01-15 16:54 | RAD REPORT ---
EXAM DESCRIPTION: [place] Single View01/15/2020 3:39 pm CLINICAL HISTORY: Shortness of breath COMPARISON: December 2019 FINDINGS: Mild to moderate bilateral interstitial pulmonary opacities. Small bilateral pleural effusions. The heart is mildly enlarged IMPRESSION: These findings probably represent mild CHF
[2020-01-15] MEDS: ENOXAPARIN 40 MG/0.4 ML SQ SCH (18:00)
[2020-01-15] MEDS: METHYLPREDNISOLONE 125 MG INJ IV SCH ×2 (18:00→23:06)
[2020-01-15] MEDS ORDERED: FUROSEMIDE 100 MG/10 ML VIAL IV ONE (18:41)
[2020-01-15] MEDS ORDERED: IPRATROPIUM BROM 0.5MG/2.5ML ONE (19:33)
[2020-01-15] MEDS ORDERED: ALBUTEROL 2.5 MG/3 ML NEB SOL ONE (19:34)
[2020-01-15] MEDS: ALBUTEROL 2.5 MG/3 ML NEB SOL NEB SCH (19:50)
[2020-01-15] MEDS: IPRATROPIUM BROM 0.5MG/2.5ML NEB SCH (19:50)
[2020-01-15] MEDS ORDERED: ENOXAPARIN 40 MG/0.4 ML SQ ONE (21:00)
[2020-01-15 21:24] VITALS: BMI 41.5
[2020-01-15 21:40] LABS: Troponin I 0.02 ng/mL (0.0-0.045)
[2020-01-15 21:41] LABS: Potassium 2.8 mmol/L (3.5-5.1)
[2020-01-15] MEDS ORDERED: KCL 20 MEQ/100 mL IVPB 20 MEQ/100 ML BAG IV SCH (22:00)
[2020-01-15] MEDS ORDERED: NA CHLORIDE 0.9% 250 ML ONE (22:57)
[2020-01-16] MEDS: IPRATROPIUM BROM 0.5MG/2.5ML NEB SCH ×4 (01:15→19:50)
[2020-01-16] MEDS: ALBUTEROL 2.5 MG/3 ML NEB SOL NEB SCH ×4 (01:15→19:50)
[2020-01-16] MEDS ORDERED: ALBUTEROL 2.5 MG/3 ML NEB SOL ONE ×3 (01:25→12:30)
[2020-01-16] MEDS ORDERED: IPRATROPIUM BROM 0.5MG/2.5ML ONE ×3 (01:25→12:30)
[2020-01-16] MEDS ORDERED: METHYLPREDNISOLONE 125 MG INJ ONE ×3 (04:44→16:24)
[2020-01-16] MEDS: METHYLPREDNISOLONE 125 MG INJ IV SCH ×3 (05:00→17:17)
[2020-01-16] MEDS: lisinopriL 20 MG TAB PO SCH ×2 (05:03→20:37)
[2020-01-16] MEDS ORDERED: lisinopriL 20 MG TAB ONE (05:08)
[2020-01-16 05:35] LABS: Absolute Lymphocytes (CBC) 0.9 K/uL (0.7-4.9); Basophils % 0.1 % (0-1.3); Hematocrit 29.1 % (36.0-45.0); Lymphocytes % 6.1 % (15.3-44.8); MPV 8.7 fL (7.6-11.3); RBC Red Blood Cell Count 3.48 M/uL (3.86-4.86)
[2020-01-16 05:38] LABS: Protime INR 2.78
[2020-01-16 07:00] LABS: Albumin 2.9 g/dL (3.4-5.0); Bilirubin Total 0.6 mg/dL (0.2-1.0); Magnesium 2.1 mg/dL (1.8-2.4); Phosphorus 2.7 mg/dL (2.5-4.9); Protein, Total 6.5 g/dL (6.4-8.2); Troponin I 0.02 ng/mL (0.0-0.045)
[2020-01-16 07:01] LABS: Potassium 2.9 mmol/L (3.5-5.1)
[2020-01-16] MEDS: KCL 20 MEQ/100 mL IVPB 20 MEQ/100 ML BAG IV SCH ×5 (08:00→22:24)
[2020-01-16] MEDS ORDERED: INFLUENZA VACCINE (for 3y+) 0.5 ML DOSE IMVAC ONE (08:00)
[2020-01-16] MEDS ORDERED: PNEUMOCOCCAL VACCINE 0.5 ML IMVAC ONE ×2 (08:00→08:10)
[2020-01-16] MEDS ORDERED: FUROSEMIDE 20 MG/ 2ML VIAL ONE ×2 (08:09→16:24)
[2020-01-16] MEDS ORDERED: ENOXAPARIN 40 MG/0.4 ML SQ ONE (08:09)
[2020-01-16] MEDS ORDERED: KCL 20 MEQ/100 mL IVPB 60 MEQ/300 ML BAG IV ONE (08:10)
[2020-01-16] MEDS: ENOXAPARIN 40 MG/0.4 ML SQ SCH (08:17)
[2020-01-16 08:50] LABS: Anisocytosis 1+; Blood Morphology Comment NOTED (NOT SEEN); Platelet Estimate ADEQ
[2020-01-16] MEDS ORDERED: FUROSEMIDE 20 MG/ 2ML VIAL IV SCH (09:00)
[2020-01-16] MEDS ORDERED: ACETAMINOPHEN 500 MG TAB ONE (09:19)
[2020-01-16] MEDS ORDERED: NA CHLORIDE 0.9% 250 ML IV ONE (10:06)
[2020-01-16] MEDS ORDERED: NA CHLORIDE 0.9% 250 ML ONE (10:12)
[2020-01-16] MEDS: NICOTINE 21 MG/PAT TD SCH (14:29)
[2020-01-16] MEDS ORDERED: NICOTINE 21 MG/PAT TD ONE (14:40)
[2020-01-16] MEDS: Levofloxacin500mg IV 500 MG/100 ML BAG IV SCH (16:00)
--- NOTE | 2020-01-16 16:23 | P.HP ---
Certification for Inpatient Patient admitted to: Inpatient With expected LOS: >2 Midnights Patient will require the following post-hospital care: None Practitioner: I am a practitioner with admitting privileges, knowledge of patient current condition, hospital course, and medical plan of care. Services: Services provided to patient in accordance with Admission requirements found in Title 42 Section 412.3 of the Code of Federal Regulations Patient History Date of Service: 01/15/20 Reason for admission: Respiratory distress History of Present Illness: Patient is a 49-year-old female came to the hospital with difficulty breathing. Patient was short of breath for the last few weeks. Patient's symptoms were not improving. Patient became tachypneic. Patient was hypoxic in the Emergency Room satting 85% on room air. Patient denies any cardiac history. Patient states that she has COPD and she thought it may be flaring up. She also has sleep apnea and wears a CPAP machine at night. Her BNP was significantly elevated. She was hypoxic on her blood gases as well. Patient decided come into the emergency room for further evaluation. CT scan revealed bilateral pleural effusions. Patient will be admitted to the hospital and worked up for congestive heart failure exacerbation. Patient will get cardiology consultation and pulmonary consultation. Continue with nebs, steroids, and antibiotic therapy along with diuresing. Patient will need hospitalization for respiratory distress. Continue with BiPAP support at this time. Allergies iodine Allergy (Verified 08/29/13 14:40) Unknown Penicillins Allergy (Verified 01/15/20 22:36) UNK Home Medications: Propranolol HCl 1 tab PO BID 11/17/16 Sertraline [Zoloft*] 1 tab PO DAILY 11/17/16 Zolpidem Tartrate [Ambien] 1 tab PO BEDTIME 11/17/16 Fluticasone/Salmeterol [Airduo Respiclick 113-14 Mcg] 1 each IH BID 30 Days #1 aer.pow.ba 12/31/19 Warfarin Sodium 10 mg PO BEDTIME 30 Days #30 tablet 12/31/19 lisinopriL [Prinivil*] 1 tab PO BID 30 Days #60 tab 12/31/19 predniSONE [Prednisone] 20 mg PO SEECOM #22 tablet 12/31/19 Budesonide/Formoterol Fumarate [Symbicort 160-4.5 Mcg Inhaler] 1 puff IH BID 11/03/20 - Past Medical/Surgical History Has patient received pneumonia vaccine in the past: No Diabetic: No -: htn -: hyperlipidemia -: dvt bilateral legs -: cva x3 -: pulmonary embolism -: 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 -: tubal ligation -: dvt removal to right leg -: tonsilectomy - Family History Father Medical History: Heart disease, Cancer Mother Medical History: Hypertension - Social History Smoking Status: Current every day smoker Alcohol use: No CD- Drugs: No Caffeine use: Yes Place of Residence: Home Review of Systems 10-point ROS is otherwise unremarkable Physical Examination - Vital Signs Temperature: 97.6 F Blood Pressure: 133/78 Pulse: 104 Respirations: 22 Pulse Ox (%): 100 - Physical Exam General: Alert, In no apparent distress, Oriented x3 HEENT: Atraumatic, PERRLA, Mucous membr. moist/pink, EOMI, Sclerae nonicteric Neck: Supple, 2+ carotid pulse no bruit, Without JVD or thyroid abnormality, JVD distended Respiratory: Diminished, Crackles/rales Cardiovascular: Regular rate/rhythm, Normal S1 S2, Systolic murmur Gastrointestinal: Normal bowel sounds, Soft and benign, Non-distended, No tenderness Musculoskeletal: No clubbing, Swelling Neurological: Normal gait, Normal speech, Sensation intact, Cranial nerves 3-12 intact, Abnormal strength Assessment & Plan - Problems (Diagnosis) (1) Acute exacerbation of CHF (congestive heart failure) Current Visit: Yes Status: Acute (2) Obstructive sleep apnea Current Visit: Yes Status: Acute (3) BiPAP (biphasic positive airway pressure) dependence Current Visit: Yes Status: Acute (4) Hypoxemia Current Visit: Yes Status: Acute (5) Bilateral pleural effusion Current Visit: Yes Status: Acute (6) Elevated brain natriuretic peptide (BNP) level Current Visit: Yes Status: Acute (7) Tachypnea Current Visit: Yes Status: Acute (8) COPD exacerbation Current Visit: No Status: Acute (9) Depression Current Visit: No Status: Acute (10) History of DVT (deep vein thrombosis) Current Visit: No Status: Acute (11) Hx pulmonary embolism Current Visit: No Status: Acute (12) Hypertension Current Visit: No Status: Acute - Plan 1. Echocardiogram 2. Continue with BiPAP support 3. Nebs, steroids, and antibiotics 4. Cardiology consultation and Pulmonary consultation 5. Aggressive diuresis 6. Strict I's and O's 7. Repeat CXR 8. Daily weights 9. COVID-19 testing 10. Education regarding diet and treatment of congestive heart failure Discharge Plan: Home Plan to discharge in: Greater than 2 days - Advance Directives Does patient have a Living Will: No Does patient have a Durable POA for Healthcare: No - Code Status/Comfort Care Code Status Assessed: Yes Code Status: Full Code Critical Care: Yes Time Spent Managing PTS Care (In Minutes): 45
--- NOTE | 2020-01-16 16:35 | P.PN ---
Subjective Date of Service: 01/16/20 Chief Complaint: Respiratory distress Patient is still short of breath. Patient still gets tachypneic on exertion. Weaned off of BIPAP support. Still with bilateral pleural effusions. Repeat chest x-ray and get cardiology and pulmonary consultation. Patient with obstructive sleep apnea and CPAP at night. Review of Systems 10-point ROS is otherwise unremarkable Physical Examination - Vital Signs Temperature: 97.6 F Blood Pressure: 133/78 Pulse: 104 Respirations: 22 Pulse Ox (%): 100 - Physical Exam General: Alert, In no apparent distress, Oriented x3 Respiratory: Diminished, Crackles/rales, Expiratory wheezes Cardiovascular: Regular rate/rhythm, Normal S1 S2, Systolic murmur Gastrointestinal: Normal bowel sounds, Soft and benign, Non-distended, No tenderness Musculoskeletal: No clubbing, Swelling Neurological: Normal strength at 5/5 x4 extr, Sensation intact, Cranial nerves 3-12 intact Lymphatics: No axilla or inguinal lymphadenopathy - Studies Medications List Reviewed: Yes Assessment & Plan - Problems (Diagnosis) (1) Acute exacerbation of CHF (congestive heart failure) Current Visit: Yes Status: Acute (2) Obstructive sleep apnea Current Visit: Yes Status: Acute (3) BiPAP (biphasic positive airway pressure) dependence Current Visit: Yes Status: Acute (4) Hypoxemia Current Visit: Yes Status: Acute (5) Bilateral pleural effusion Current Visit: Yes Status: Acute (6) Elevated brain natriuretic peptide (BNP) level Current Visit: Yes Status: Acute (7) Tachypnea Current Visit: Yes Status: Acute (8) COPD exacerbation Current Visit: No Status: Acute (9) Depression Current Visit: No Status: Acute (10) History of DVT (deep vein thrombosis) Current Visit: No Status: Acute (11) Hx pulmonary embolism Current Visit: No Status: Acute (12) Hypertension Current Visit: No Status: Acute - Plan 1. Echocardiogram pending 2. Weaned off of BiPAP; CPAP at night 3. Continue with Nebs, steroids, and antibiotics 4. Cardiology consultation and Pulmonary consultation attending 5. Continue wound Aggressive diuresis 6. Strict I's and O's 7. Repeat CXR 8. Daily weights 9. COVID-19 testing pending 10. Education regarding diet and treatment of congestive heart failure Discharge Plan: Home Plan to discharge in: Greater than 2 days - Advance Directives Does patient have a Living Will: No Does patient have a Durable POA for Healthcare: No - Code Status/Comfort Care Code Status: Full Code Critical Care: No Time Spent Managing PTS Care (In Minutes): 35
[2020-01-16] MEDS: FUROSEMIDE 20 MG/ 2ML VIAL IV SCH (17:00)
[2020-01-16] MEDS ORDERED: AZITHROMYCIN IV 500 MG in NA CHLORIDE 0.9% 250 ML IVPB ONE (17:00)
[2020-01-16] MEDS ORDERED: Levofloxacin500mg IV 500 MG/100 ML BAG IV ONE (17:17)
[2020-01-16] MEDS ORDERED: NA CHLORIDE 0.9% 1,000 ML IV SCH (19:00)
[2020-01-16] MEDS: GUAIFENESIN/CODEINE 5ML UCUP PO PRN (20:37)
[2020-01-16] MEDS: WARFARIN SODIUM 5 MG TAB PO SCH (20:37)
[2020-01-16] MEDS: ZOLPIDEM TARTRATE 10 MG TABLET PO SCH (20:37)
[2020-01-16] MEDS ORDERED: FAMOTIDINE 20 MG/2 ML VIAL IV PRN ×2 (20:48→22:00)
[2020-01-16] MEDS ORDERED: WARFARIN SODIUM 10 MG PO SCH (21:00)
[2020-01-17] MEDS: FUROSEMIDE 20 MG/ 2ML VIAL IV SCH ×3 (00:30→16:10)
[2020-01-17] MEDS: METHYLPREDNISOLONE 125 MG INJ IV SCH ×3 (00:30→11:10)
[2020-01-17] MEDS: KCL 20 MEQ/100 mL IVPB 20 MEQ/100 ML BAG IV SCH (00:40)
[2020-01-17] MEDS: IPRATROPIUM BROM 0.5MG/2.5ML NEB SCH ×4 (01:15→19:30)
[2020-01-17] MEDS: ALBUTEROL 2.5 MG/3 ML NEB SOL NEB SCH ×4 (01:15→19:30)
[2020-01-17] MEDS ORDERED: BENZONATATE 100 MG CAP PO ONE (02:51)
[2020-01-17 06:17] LABS: Absolute Lymphocytes (CBC) 1.1 K/uL (0.7-4.9); Basophils % 0.1 % (0-1.3); Hematocrit 29.2 % (36.0-45.0); Lymphocytes % 5.6 % (15.3-44.8); MPV 7.7 fL (7.6-11.3); RBC Red Blood Cell Count 3.44 M/uL (3.86-4.86)
[2020-01-17 07:07] LABS: Magnesium 2.2 mg/dL (1.8-2.4); Phosphorus 2.7 mg/dL (2.5-4.9); Potassium 3.5 mmol/L (3.5-5.1)
[2020-01-17] MEDS ORDERED: POTASSIUM CL SA 10 MEQ TAB PO ONE (07:24)
--- NOTE | 2020-01-17 07:36 | EKG ---
Test Date: 2020-01-15 Test Time: 15:18:12 Nail Machine Operator: GRADY MEASUREMENT RESULTS: Intervals: Rate: 108 NC: 138 QRSD: 92 QT: 358 QTc: 479 [place]: P: 47 NC: 138 QRS: 38 T: 85 INTERPRETIVE STATEMENTS: Sinus tachycardia with premature atrial complexes Possible Left atrial enlargement Borderline ECG Compared to ECG 12/30/2019 07:24:11 Atrial premature complex(es) now present Left ventricular hypertrophy no longer present Early repolarization no longer present Electronically Signed On 01-17-20 07:32:46 CLINICAL RESEARCH NURSE COORDINATOR by Jeovanny Lu
--- NOTE | 2020-01-17 07:45 | RAD REPORT ---
EXAM DESCRIPTION: [facility] Single View01/17/2020 6:28 am CLINICAL HISTORY: Shortness of breath COMPARISON: January 14 FINDINGS: Bilateral pulmonary opacities have partially resolved Heart has decreased in size and is upper limits normal IMPRESSION: Significant improvement in CHF
[2020-01-17] MEDS: lisinopriL 20 MG TAB PO SCH ×2 (07:59→21:02)
[2020-01-17] MEDS: SERTRALINE HCL 100 MG TAB PO SCH (08:00)
--- NOTE | 2020-01-17 09:49 | P.PN ---
Subjective Date of Service: 01/17/20 Patient clinically doing better. However still get short of breath on ambulation. Will see how she does tonight with the CPAP support. She has right-sided heart failure with elevated right ventricular pressures. She follows up with Pulmonary and Cardiology. Continue adjusting her medications and anticipate discharge home or the next 24-48 hr Review of Systems 10-point ROS is otherwise unremarkable Physical Examination - Vital Signs Temperature: 97.6 F Blood Pressure: 133/78 Pulse: 104 Respirations: 22 Pulse Ox (%): 100 - Physical Exam General: Alert, In no apparent distress, Oriented x3 Respiratory: Diminished, Expiratory wheezes Cardiovascular: Regular rate/rhythm, Normal S1 S2, No murmurs Gastrointestinal: Normal bowel sounds, Soft and benign, Non-distended, No tenderness Musculoskeletal: No clubbing, No swelling - Studies Medications List Reviewed: Yes Assessment & Plan - Problems (Diagnosis) (1) Acute exacerbation of CHF (congestive heart failure) Current Visit: Yes Status: Acute (2) Obstructive sleep apnea Current Visit: Yes Status: Acute (3) BiPAP (biphasic positive airway pressure) dependence Current Visit: Yes Status: Acute (4) Hypoxemia Current Visit: Yes Status: Acute (5) Bilateral pleural effusion Current Visit: Yes Status: Acute (6) Elevated brain natriuretic peptide (BNP) level Current Visit: Yes Status: Acute (7) Tachypnea Current Visit: Yes Status: Acute (8) COPD exacerbation Current Visit: No Status: Acute (9) Depression Current Visit: No Status: Acute (10) History of DVT (deep vein thrombosis) Current Visit: No Status: Acute (11) Hx pulmonary embolism Current Visit: No Status: Acute (12) Hypertension Current Visit: No Status: Acute - Plan 1. Echocardiogram pending 2. Weaned off of BiPAP; CPAP at night 3. Continue with Nebs, steroids, and antibiotics 4. Cardiology consultation and Pulmonary consultation attending 5. Continue wound Aggressive diuresis 6. Strict I's and O's 7. Repeat CXR 8. Daily weights 9. COVID-19 testing pending 10. Education regarding diet and treatment of congestive heart failure - Advance Directives Does patient have a Living Will: No Does patient have a Durable POA for Healthcare: No - Code Status/Comfort Care Code Status: Full Code
--- NOTE | 2020-01-17 11:48 | CON ---
Date of Consultation: 01/17/2020 Reason For Consultation: COPD and possible congestive heart failure. History Of Present Illness: Ms. De La Paz is a 49-year-old white woman, who has a history of COPD, CVA, hypertension, DVT, PE, and pneumonia. She recently had a pneumonia. She comes in with shortness of breath and dyspnea on exertion, hypertension 218/114, room air saturation 100%, hemoglobin 9.5. Her INR was 2.78. Potassium was 3.5. She had a BNP of 2691 and a chest x-ray showed possible congestiv e heart failure. She denied any chest pain. Denied any nausea, vomiting, diaphoresis. Had PND and orthopnea, but no pedal edema. Denied any palpitation or syncope. She has had constant tremors from a previous CVA. She takes Coumadin for life because of her PE and DVT history. Allergies: SHE IS ALLERGIC TO IODINE AND PENICILLIN. Review of Systems: Negative. Social History: Negative. Family History: Negative. Medications: At home include inhalers, Coumadin, propranolol, lisinopril, and prednisone. Physical Examination: Vital Signs: Her initial blood pressure was 218/114, it is now 170/70. General: Appeared to be very anxious and nervous and tearful because she was told she has CHF. HEENT: Negative. Neck: Supple with no bruit. Chest: Revealed expiratory and inspiratory wheezing, but no rales. Cardiac: Revealed a regular rhythm and rate with an S4 gallops. Abdomen: Obese, but benign. Extremities: Revealed trace edema. Diagnostic Data: As stated earlier. Impression And Plan: 1.Possible acute diastolic congestive heart failure because of severe hypertension. 2.Recent pneumonia with expiratory wheezing, more consistent with chronic obstructive pulmonary dise ase exacerbation. Echocardiogram is pending. 3.Hypokalemia that needs to be supplemented. 4.Anemia. 5.Status post pulmonary embolism and deep vein thrombosis, on long-term Coumadin therapy. 6.History of cerebrovascular accident. 7.History of pneumonia. 8.Hypertension that is very poorly controlled. I will suggest when she goes home to be switched fro m propranolol to beta-ananya and may be a Toprol or carvedilol. I suggest the addition of Norvasc a nd maybe a low-dose hydrochlorothiazide. We will see what her echo shows. The case was discussed wi Dr. Jason. DICK/MODL Voice ID: [id number] Report ID: [id number]
--- NOTE | 2020-01-17 12:43 | P.CNS ---
Date of Consult: 01/17/20 Reason for Consult: Shortness of breath Chief Complaint: Respiratory distress History of Present Illness: Patient is 49 years of age was recently discharged became worse over the past 2 weeks worsening shortness of breath cT scan shows bilateral interstitial changes suggestive of 0 mcdermott virus infection history of COPD patient cannot afford any medication uses relatives nebulizer oxygenation satisfactory no evidence of pneumonia apparently she did gain any over medications since last discharge Allergies iodine Allergy (Verified 08/29/13 14:40) Unknown Penicillins Allergy (Verified 01/15/20 22:36) UNK Home Medications: Propranolol HCl 1 tab PO BID 11/17/16 Sertraline [Zoloft*] 1 tab PO DAILY 11/17/16 Zolpidem Tartrate [Ambien] 1 tab PO BEDTIME 11/17/16 Fluticasone/Salmeterol [Airduo Respiclick 113-14 Mcg] 1 each IH BID 30 Days #1 aer.pow.ba 12/31/19 Warfarin Sodium 10 mg PO BEDTIME 30 Days #30 tablet 12/31/19 lisinopriL [Prinivil*] 1 tab PO BID 30 Days #60 tab 12/31/19 predniSONE [Prednisone] 20 mg PO SEECOM #22 tablet 12/31/19 Budesonide/Formoterol Fumarate [Symbicort 160-4.5 Mcg Inhaler] 1 puff IH BID 01/15/20 - Past Medical/Surgical History Diabetic: No -: htn -: hyperlipidemia -: dvt bilateral legs -: cva x3 -: pulmonary embolism -: 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 -: COPD -: tubal ligation -: dvt removal to right leg -: tonsilectomy - Family History Father Medical History: Heart disease, Cancer Mother Medical History: Hypertension - Social History Smoking Status: Current every day smoker Alcohol use: No CD- Drugs: No Caffeine use: Yes Place of Residence: Home Review of Systems 10-point ROS is otherwise unremarkable General: Weakness Respiratory: Cough, Shortness of Breath Physical Examination Temp Pulse Resp BP Pulse Ox 97.6 F 104 H 22 H 133/78 100 01/17/20 09:49 01/17/20 09:49 01/17/20 09:49 01/17/20 09:49 01/17/20 09:49 General: Alert, Oriented x3, Mild distress Respiratory: Expiratory wheezes Cardiovascular: No edema, Normal S1 S2 Gastrointestinal: Normal bowel sounds, Soft and benign - Problems (1) Pneumonia Current Visit: Yes Status: Acute Plan: Patient is 49 years of age admitted with shortness of breath chest x-ray CT scan shows patchy bilateral changes suggestive of a mcdermott virus infection agree with steroids for now mcdermott virus test is negative patient's white count is elevated she may well have atypical pneumonia change to p.o. levofloxacin continue with prednisone echocardiogram pending consider discharge tomorrow on levofloxacin prednisone continue with the [place] from the hospital nebulize albuterol ipratropium prescription follow up with me in 2 weeks patient's BNP is also elevated at some Lasix Qualifiers: Pneumonia type: due to unspecified organism
[2020-01-17] MEDS: Levofloxacin500mg IV 500 MG/100 ML BAG IV SCH (16:10)
[2020-01-17] MEDS: NICOTINE 21 MG/PAT TD SCH (16:10)
[2020-01-17] MEDS: GUAIFENESIN/CODEINE 5ML UCUP PO PRN (16:21)
[2020-01-17] MEDS: ZOLPIDEM TARTRATE 10 MG TABLET PO SCH (21:01)
[2020-01-17] MEDS: WARFARIN SODIUM 5 MG TAB PO SCH (21:01)
[2020-01-17] MEDS: DULERA 200/5 (MOMETASONE/FORMOTEROL) INHALER IH SCH (21:02)
[2020-01-17] MEDS: METHYLPREDNISOLONE 40 MG INJ IV SCH (21:04)
[2020-01-18] MEDS: FUROSEMIDE 20 MG/ 2ML VIAL IV SCH ×3 (01:00→16:48)
[2020-01-18] MEDS: ALBUTEROL 2.5 MG/3 ML NEB SOL NEB SCH ×4 (02:35→20:52)
[2020-01-18] MEDS: IPRATROPIUM BROM 0.5MG/2.5ML NEB SCH ×4 (02:35→20:52)
[2020-01-18 05:56] LABS: Potassium 3.8 mmol/L (3.5-5.1)
[2020-01-18] MEDS ORDERED: POTASSIUM CL SA 10 MEQ TAB PO ONE (08:00)
[2020-01-18] MEDS: DULERA 200/5 (MOMETASONE/FORMOTEROL) INHALER IH SCH ×2 (08:06→21:02)
[2020-01-18] MEDS: lisinopriL 20 MG TAB PO SCH (08:06)
[2020-01-18] MEDS: METHYLPREDNISOLONE 40 MG INJ IV SCH ×2 (08:07→22:14)
[2020-01-18] MEDS: SERTRALINE HCL 100 MG TAB PO SCH (08:07)
[2020-01-18] MEDS: NICOTINE 21 MG/PAT TD SCH (08:08)
--- NOTE | 2020-01-18 08:50 | ECHO ---
HEIGHT: 5 ft 1 in WEIGHT: 249 lb 4.8 oz DATE OF STUDY: 01/17/[address]: Igor Jason MD 2-DIMENSIONAL: YES M.MODE: YES DOPPLER: YES COLOR FLOW: YES TDS: PORTABLE: DEFINITY: BUBBLE STUDY: DIAGNOSIS: CONGESTIVE HEART FAILURE CARDIAC HISTORY: CATHERIZATION: NO SURGERY: NO PROSTHETIC VALVE: NO PACEMAKER: NO MEASUREMENTS (cm) DIASTOLIC (NORMALS) SYSTOLIC (NORMALS) IVSd 1.1 (0.6-1.2) LA Diam 3.6 (1.9-4.0) LVEF 64% LVIDd 4.5 (3.5-5.7) LVIDs 2.9 (2.0-3.5) %FS 35% LVPWd 1.3 (0.6-1.2) Ao Diam 2.5 (2.0-3.7) 2 DIMENSIONAL ASSESSMENT: RIGHT ATRIUM: NORMAL LEFT ATRIUM: NORMAL RIGHT VENTRICLE: NORMAL LEFT VENTRICLE: NORMAL TRICUSPID VALVE: MILD TRICUSPID REGURGITATION MITRAL VALVE: MILD TO MODERATE MITRAL REGURGITATION PULMONIC VALVE: NORMAL AORTIC VALVE: NORMAL PERICARDIAL EFFUSION: NONE AORTIC ROOT: NORMAL LEFT VENTRICULAR WALL MOTION: NORMAL DOPPLER/COLOR FLOW: DIASTOLIC DYSFUNCTION. COMMENTS: NORMAL LEFT VENTRICULAR EJECTION FRACTION 55-60% WITH NORMAL WALL MOTION. MILD TO MODERATE MITRAL REGURGITATION. PULMOANRY HYPERTENSION WITH RIGHT VENTRICULAR SYSTOLIC PRESSUE OF 50-55 mmHg (MODERATE). MILD TRICUSPID REGURGITATION. DIASTOLIC DYSFUNCTION. TECHNOLOGIST: SUZIE VELAZCO
--- NOTE | 2020-01-18 10:42 | P.PN ---
Subjective Date of Service: 01/18/20 Chief Complaint: COPD exacerbation Subjective: Improving (Patient is improving complaining of coughing up some blood maybe over anti coagulated still has some chest pressure) Review of Systems General: Weakness Respiratory: Shortness of Breath Physical Examination - Vital Signs Temperature: 97.6 F Blood Pressure: 133/78 Pulse: 104 Respirations: 22 Pulse Ox (%): 100 - Physical Exam General: Alert, Oriented x3 Respiratory: Clear to auscultation bilaterally, Diminished Cardiovascular: No edema, Regular rate/rhythm - Studies Medications List Reviewed: Yes Assessment & Plan - Problems (Diagnosis) (1) Pneumonia Current Visit: Yes Status: Acute Plan: Possible pneumonia can change to p.o. levofloxacin possible underlying diastolic heart failure she has grade 1 diastolic dysfunction on echo INR is elevated probably reaction with Levaquin labs reviewed plan for discharge on steroids patient has mild pulmonary hypertension white count is mildly elevated I suspect is from the steroids patient does not qualify for home O2 recommend adding some Lasix at discharge Qualifiers: Pneumonia type: due to unspecified organism Laterality: bilateral
--- NOTE | 2020-01-18 11:16 | RAD REPORT ---
EXAM DESCRIPTION: RAD - Chest Pa And Lat (2 Views) - 01/18/2020 10:58 am CLINICAL HISTORY: Pneumonia versus CHF Chest pain. COMPARISON: Chest Single View dated 01/17/2020; Chest Single View dated 01/15/2020; Chest Single View dated 12/30/2019; Chest Single View dated 08/14/2018 FINDINGS: Mild reticular opacities in both lungs is seen which may indicate mild bronchitis. Overall lung aeration is moderately improved since 01/14/2020. The heart is upper limit normal in size.
--- NOTE | 2020-01-18 15:50 | P.PN ---
Subjective Date of Service: 01/18/20 Patient appears to be doing much better. She did have some hemoptysis today. Will recheck INR level. Patient has been on Levaquin and quinolones can increase the INR level. Will Dc the Levaquin and continue on Omnicef orally. Chest x-ray does show improvement of the infiltrates. Will also add a low-dose beta-ananya to patient's regimen. Patient with diastolic dysfunction on echocardiogram. Patient does feel better but she does not feel like she is ready to go home at this time. Have encouraged her to get up out of bed and ambulate. Recheck her labs in the morning and anticipate discharge home if everything is looking stable. Review of Systems 10-point ROS is otherwise unremarkable Physical Examination - Vital Signs Temperature: 96.8 F Blood Pressure: 134/67 Pulse: 106 Respirations: 20 Pulse Ox (%): 94 - Physical Exam General: Alert, In no apparent distress, Oriented x3 Respiratory: Diminished, Expiratory wheezes Cardiovascular: Regular rate/rhythm, Normal S1 S2, No murmurs Gastrointestinal: Normal bowel sounds, Soft and benign, Non-distended, No tenderness Musculoskeletal: No clubbing, No swelling, No tenderness Neurological: Normal strength at 5/5 x4 extr, Sensation intact, Cranial nerves 3-12 intact - Studies Medications List Reviewed: Yes Assessment & Plan - Problems (Diagnosis) (1) Acute exacerbation of CHF (congestive heart failure) Current Visit: Yes Status: Acute (2) Obstructive sleep apnea Current Visit: Yes Status: Acute (3) BiPAP (biphasic positive airway pressure) dependence Current Visit: Yes Status: Acute (4) Hypoxemia Current Visit: Yes Status: Acute (5) Bilateral pleural effusion Current Visit: Yes Status: Acute (6) Elevated brain natriuretic peptide (BNP) level Current Visit: Yes Status: Acute (7) Tachypnea Current Visit: Yes Status: Acute (8) COPD exacerbation Current Visit: No Status: Acute (9) Depression Current Visit: No Status: Acute (10) History of DVT (deep vein thrombosis) Current Visit: No Status: Acute (11) Hx pulmonary embolism Current Visit: No Status: Acute (12) Hypertension Current Visit: No Status: Acute - Plan 1. Echocardiogram with diastolic heart failure. Also with elevated right-sided pressures. Outpatient follow with Pulmonary for pulmonary hypertension and Cardiology for monitoring congestive heart failure symptoms. 2. Continue with CPAP at night as needed 3. Continue with Nebs, steroids, and antibiotics; will Dc the Levaquin and place on Omnicef 300 mg p.o. b.i.d. in anticipation of discharge tomorrow. 4. Cardiology consultation and Pulmonary consultation appreciated 5. Continue with IV Lasix 6. Strict I's and O's 7. Repeat CXR shows improvement of the infiltrates. Can repeat chest x-ray in 1-2 weeks 8. Daily weights 9. COVID-19 testing was negative 10. Education regarding diet and treatment of congestive heart failure Discharge Plan: Home Plan to discharge in: 48 Hours - Advance Directives Does patient have a Living Will: No Does patient have a Durable POA for Healthcare: No - Code Status/Comfort Care Code Status: Full Code Critical Care: No Time Spent Managing PTS Care (In Minutes): 35
[2020-01-18] MEDS ORDERED: METOPROLOL TAR 50 MG TAB PO ONE (16:00)
[2020-01-18] MEDS ORDERED: VITAMIN K (ADULT) 10 MG/ML SQ ONE (16:00)
[2020-01-18] MEDS ORDERED: ALBUMIN HUMAN 25% 50 ML IV ONE (16:00)
[2020-01-18 16:56] LABS: Protime INR 5.25
[2020-01-18] MEDS: ZOLPIDEM TARTRATE 10 MG TABLET PO SCH (21:02)
[2020-01-19] MEDS: FUROSEMIDE 20 MG/ 2ML VIAL IV SCH ×3 (00:11→16:59)
[2020-01-19] MEDS: ALBUTEROL 2.5 MG/3 ML NEB SOL NEB SCH ×3 (01:50→13:45)
[2020-01-19] MEDS: IPRATROPIUM BROM 0.5MG/2.5ML NEB SCH ×3 (01:50→13:45)
[2020-01-19] MEDS: GUAIFENESIN/CODEINE 5ML UCUP PO PRN (03:25)
[2020-01-19] MEDS: METOPROLOL TAR 50 MG TAB PO SCH ×2 (05:28→17:26)
[2020-01-19 06:39] LABS: Absolute Lymphocytes (CBC) 1.3 K/uL (0.7-4.9); Basophils % 0.3 % (0-1.3); Hematocrit 30.9 % (36.0-45.0); Lymphocytes % 9.3 % (15.3-44.8); MPV 8.1 fL (7.6-11.3); RBC Red Blood Cell Count 3.63 M/uL (3.86-4.86)
[2020-01-19 06:51] LABS: Potassium 3.6 mmol/L (3.5-5.1)
[2020-01-19 06:59] LABS: Albumin 3.2 g/dL (3.4-5.0); Bilirubin Total 0.7 mg/dL (0.2-1.0); Magnesium 2.5 mg/dL (1.8-2.4); Phosphorus 3.7 mg/dL (2.5-4.9); Potassium 3.6 mmol/L (3.5-5.1); Protein, Total 6.5 g/dL (6.4-8.2); Protime INR 3.27
[2020-01-19 07:22] LABS: Blood Morphology Comment NOT SEEN (NOT SEEN); Platelet Estimate ADEQ; White Blood Cell Scan OK (OK)
[2020-01-19] MEDS: DULERA 200/5 (MOMETASONE/FORMOTEROL) INHALER IH SCH ×2 (08:06→20:37)
[2020-01-19] MEDS: METHYLPREDNISOLONE 40 MG INJ IV SCH (08:07)
[2020-01-19] MEDS: NICOTINE 21 MG/PAT TD SCH (08:07)
[2020-01-19] MEDS: lisinopriL 10 MG TAB PO SCH ×2 (08:07→20:38)
[2020-01-19] MEDS: SERTRALINE HCL 100 MG TAB PO SCH (08:08)
[2020-01-19] MEDS ORDERED: POTASSIUM CL SA 10 MEQ TAB PO ONE (09:00)
[2020-01-19] MEDS ORDERED: PROPRANOLOL HCL 10 MG TAB PO ONE (17:27)
[2020-01-19] MEDS: IPRATROPIUM BROM 0.5MG/2.5ML NEB PRN (20:05)
[2020-01-19] MEDS: ALBUTEROL 2.5 MG/3 ML NEB SOL NEB PRN (20:05)
[2020-01-19] MEDS: PROPRANOLOL HCL 40 MG TAB PO SCH (20:37)
[2020-01-19] MEDS: predniSONE 20 MG TAB PO SCH (20:38)
[2020-01-19] MEDS: ZOLPIDEM TARTRATE 10 MG TABLET PO SCH (20:38)
[2020-01-20] MEDS: GUAIFENESIN/CODEINE 5ML UCUP PO PRN (00:54)
[2020-01-20] MEDS: FUROSEMIDE 20 MG/ 2ML VIAL IV SCH ×2 (00:54→08:58)
[2020-01-20] MEDS: IPRATROPIUM BROM 0.5MG/2.5ML NEB PRN (01:35)
[2020-01-20] MEDS: METOPROLOL TAR 50 MG TAB PO SCH (05:21)
[2020-01-20] MEDS: ALBUTEROL 2.5 MG/3 ML NEB SOL NEB PRN (05:33)
[2020-01-20 06:23] LABS: Potassium 3.6 mmol/L (3.5-5.1)
[2020-01-20 07:24] LABS: Absolute Lymphocytes (CBC) 3.2 K/uL (0.7-4.9); Basophils % 0.7 % (0-1.3); Hematocrit 31.8 % (36.0-45.0); MPV 7.6 fL (7.6-11.3); RBC Red Blood Cell Count 3.79 M/uL (3.86-4.86)
[2020-01-20 07:25] LABS: Protime INR 1.49
[2020-01-20 08:45] VITALS: BP 166/89; TEMP 97.2
[2020-01-20] MEDS: NICOTINE 21 MG/PAT TD SCH (08:52)
[2020-01-20] MEDS: SERTRALINE HCL 100 MG TAB PO SCH (08:55)
[2020-01-20] MEDS: PROPRANOLOL HCL 40 MG TAB PO SCH (08:56)
[2020-01-20] MEDS: predniSONE 20 MG TAB PO SCH (08:57)
[2020-01-20] MEDS: lisinopriL 10 MG TAB PO SCH (08:57)
[2020-01-20] MEDS: DULERA 200/5 (MOMETASONE/FORMOTEROL) INHALER IH SCH (08:58)
[2020-01-20] MEDS ORDERED: POTASSIUM CL SA 10 MEQ TAB PO ONE (09:00)
[2020-01-20] MEDS ORDERED: FAMOTIDINE 20 MG TAB PO SCH (09:00)
[2020-01-20 12:11] VITALS: O2SAT 94
[2020-01-20] MEDS ORDERED: WARFARIN SODIUM 5 MG TAB PO SCH (17:00)
[2020-01-21] MEDS ORDERED: POTASSIUM CL SA 10 MEQ TAB PO SCH (09:00)
== END 2020-01-20 12:45 | disposition home or self-care (01) | DRG 291 ==
LOC: ER 13:32 → ERHOLD 16:32 → 2ND 01-16 17:44
PROVIDERS: ADMIT Hospitalist; ATTEND Hospitalist
DX: I11.0 Hypertensive heart disease with heart failure (principal); J18.9 Pneumonia, unspecified organism; J44.1 Chronic obstructive pulmonary disease with (acute) exacerbation; J44.0 Chronic obstructive pulmonary disease with (acute) lower respiratory infection; R04.2 Hemoptysis; I50.33 Acute on chronic diastolic (congestive) heart failure; F17.210 Nicotine dependence, cigarettes, uncomplicated; E87.6 Hypokalemia; G47.33 Obstructive sleep apnea (adult) (pediatric); D64.9 Anemia, unspecified; I50.810 Right heart failure, unspecified; F32.9 Major depressive disorder, single episode, unspecified; E78.5 Hyperlipidemia, unspecified; R79.89 Other specified abnormal findings of blood chemistry; R06.82 Tachypnea, not elsewhere classified; R09.02 Hypoxemia; Z86.73 Personal history of transient ischemic attack (TIA), and cerebral infarction without residual deficits; Z86.718 Personal history of other venous thrombosis and embolism; Z86.711 Personal history of pulmonary embolism; Z98.51 Tubal ligation status; Z91.048 Other nonmedicinal substance allergy status; Z79.01 Long term (current) use of anticoagulants; Z79.52 Long term (current) use of systemic steroids; Z88.0 Allergy status to penicillin; Z79.899 Other long term (current) drug therapy; Z79.51 Long term (current) use of inhaled steroids; Z99.89 Dependence on other enabling machines and devices; Z20.828 Contact with and (suspected) exposure to other viral communicable diseases; Z23 Encounter for immunization
CPT/HCPCS: 36415; 71045; 71046; 71275; 80048; 80053; 80061; 82805; 83605; 83735; 83880; 84100; 84132; 84145; 84484; 85025; 85610; 85730; 87040; 87205; 90471; 90732; 93005; 93306; 94640; 94660; 94760; 96365; 96366; 96368; 96375; 99285; J0456; J1650; J1940; J2920; J2930; J3430; J3480; J7030; J7050; J7512; J7606; P9047; Q9967

== ENCOUNTER 2020-04-14 10:00 | Emergency (ER) | payer SELFPAY ==
--- OUTSIDE RECORDS SUMMARY | 2020-04-14 10:34 | XMS REPORT | Continuity of Care Document ---
:1970 Author Organization [facility] Care Team Providers Name Role Phone [facility] Unavailable Un available Problems Problem Status Onset Classification Date Comments Sour e Date Reported COPD Active 03/12/20 [facility] EXACERBATION 19 Illness, 03/16/2019 [facility] est unspecified ILLNESS, Active [facility] UNSPECIFIED CHRONIC Active [facility] OBSTRUCTIVE PULMONARY DISEASE W Medications Medication Details Route Status Patient Ordering Order Source Instructions Provider Date methylPREDNISolone Notes: (Same No Longer SODium SUCCinate as:Solu-MEDROL Active 2019 , A-Methapred) amLODIPine 10 mg 10 mg = 1 tab, Active oral tablet PO, Daily, # 2019 [facility] 30 tab, 0 Refill(s), Pharmacy: [facility]/pharmacy #[id number] lisinopril 20 mg 20 mg = 1 tab, Active oral tablet PO, Daily, # 2019 st 30 tab, 0 Refill(s), Pharmacy: [facility]/pharmacy #[id number] albuterol 90 2 puff, Active mcg/inh inhalation INHALATION, 2019 [facility] aerosol QID, PRN as needed for wheezing, # 1 ea, 3 Refill(s), Pharmacy: [facility]/pharmacy #[id number] predniSONE 20 mg 40 mg = 2 tab, Active oral tablet PO, Daily, X 3 2019, # 6 tab, 0 Refill(s), Pharmacy: [facility]/pharmacy #[id number] Symbicort 160/4.5 2 puff, Active inhalation aerosol INHALER, BID, 2019 with adapter # 1 ea, 3 Refill(s), Pharmacy: [facility]/pharmacy #[id number] lisinopril 20 mg 20 mg = 1 tab, Inactive oral tablet PO, Daily, 2019 st 30 tab, 0 Refill(s) amLODIPine 10 mg 10 mg = 1 tab, Inactive MH oral tablet PO, Daily, # [address] [facility] [address] 30 tab, 0 Refill(s) predniSONE 20 mg 40 mg = 2 tab, Inactive oral tablet PO, Daily, X 3 2019 [facility] , # 6 tab, 0 Refill(s) Symbicort 160/4.5 2 puff, Inactive inhalation aerosol INHALER, BID, 2019 with adapter # 1 ea, 3 Refill(s) albuterol 90 2 puff, Inactive mcg/inh inhalation INHALATION, 2019 [facility] aerosol QID, PRN as needed for wheezing, # 1 ea, 3 Refill(s) remove patch Notes: Remove Inactive old patch 2019 [facility] before application of new patch. WASTE: F/P - P Waste Black; E - P Waste Black Simethicone Notes: (Same Inactive as: Mylicon) 2019 [facility] Zolpidem tartrate 10 mg = 1 tab, Active 10 MG Oral Tablet PO, Bedtime, 0 2018 [facility] [Ambien] Refill(s) zinc sulfate 220 220 mg = 1 No Longer mg oral capsule cap, PO, Active 2018 [facility] Daily, 0 Refill(s) Sulfamethoxazole amlodipine, No Longer H 800 MG / PO, Q12H, 0 Active 2018 [facility] Trimethoprim 160 Refill(s) MG Oral Tablet Amlodipine PO, Daily, 0 No Longer Refill(s) Active 2018 [facility] Nicotine Notes: (Same No Longer as: Habitrol) Active 2018 [facility] "Remove old patch before application of new patch" WASTE: F/P - P Waste Black; E - P Waste Black Lisinopril Notes: (Same No Longer as: Prinivil, Active 2018 [facility] Zestril) Lisinopril Notes: (Same Inactive as: Prinivil, 2019 [facility] Zestril) Metoprolol Notes: (Same No Longer as: Lopressor) Active 2018 [facility] Push over 2 minutes metoprolol Notes: (Same No Longer tartrate as: Lopressor) Active 2018 [facility] Reglan Notes: (Same No Longer as: Reglan) Active 2018 [facility] Azithromycin Notes: (Same No Longer As: Zithromax Active 2018 [facility] IV) azithromycin 500 Notes: Take 1 No Longer mg oral tablet hour before or Active 2018 [facility] 2 hours after meals. (Same As: Zithromax) Zofran Notes: (Same Inactive as: Zofran) 2018 [facility] MEDICATION WASTE Product Size: 4 mg Product Wasted: ___ mg Zofran 4 mg, Route: Inactive IVP, Drug 2018 [facility] form: INJ, Q8H, Dosing Weight 111.4, kg, PRN Nausea, Start date: 03/13/19 7:46:00 TIE PRESSER, Duration: 30 day, Stop date: 04/12/19 7:45:00 TIE PRESSER metoprolol Notes: (Same No Longer tartrate as: Lopressor) Active 2018 [facility] Sublimaze Notes: (Same Inactive as: Sublimaze) 2018 [facility] Preservative free. Zofran Notes: (Same Inactive as: Zofran) 2018 [facility] MEDICATION WASTE Product Size: 4 mg Product Wasted: ___ mg Fentanyl Notes: (Same Inactive as: Sublimaze) 2018 [facility] Preservative free. Magnesium Sulfate Notes: WASTE: Inactive F/P - Sink; E 2018 [facility] - [facility] Tra Bin K-Dur 20 Notes: Inactive pharmacy 2018 [facility] re-entry for product selection (Same as: K-Dur 20) "Do Not Crush" Give with food and full glass of water For patients unable to swallow tablet, dissolve in one half glass of water. Allow about 2 minutes for the tablets to disintegrate. Stir before giving to prepare slurry and administer. Please exclude Patients with feeding tube less than 14 Portuguese (Dobhoff, J-tube etc) and pediatric and patients. potassium Notes: (Same Inactive phosphate as: K 2018 [facility] Phosphate.) Do not infuse phosphorous concurrently in the same line as TPN or IVF that contains calcium. For double lumen central lines, phosphorous may be infused in a separate lumen from TPN. 1 mMol phoshate has 1.47 mEq potassium Infuse over 4 hours Potassium Chloride 60 mEq, Route: Inactive 03/12 1.33 MEQ/ML Oral PO, Drug form: 2018 [facility] Solution LIQ, ONCE, Dosing Weight 111.4, kg, Priority: STAT, Start date: 03/12/19 16:46:00 TIE PRESSER, Stop date: 03/12/19 16:46:00 TIE PRESSER potassium Notes: (Same Inactive phosphate as: K 2018 [facility] Phosphate.) Do not infuse phosphorous concurrently in the same line as TPN or IVF that contains calcium. For double lumen central lines, phosphorous may be infused in a separate lumen from TPN. 1 mMol phoshate has 1.47 mEq potassium Infuse over 4 hours Sodium Chloride 250 mL, Route: No Longer 0.9% IV IVPB, Start Active 2018 [facility] date: 03/12/19 15:53:00 TIE PRESSER, Duration: 30 day, Stop date: 04/11/19 15:52:00 TIE PRESSER, PRN Line Flush, 0 Hydralazine Notes: (Same No Longer as: Active 2018 [facility] Apresoline) Push over 5 minutes Labetalol Notes: (Same No Longer as: Normodyne, Active 2018 [facility] Trandate) Push over 2 minutes Give bolus over 2-3 minutes. methylPREDNISolone Notes: (Same No Longer SODium SUCCinate as:Solu-MEDROL Active 2018 [facility] , A-Methapred) Ondansetron Notes: (Same No Longer as: Zofran) Active 2018 [facility] MEDICATION WASTE Product Size: 4 mg Product Wasted: ___ mg Ipratropium Notes: SEE RT No Longer Palouse 0.2 MG/ML DOCUMENTATION Active 2018 [facility] Inhalant Solution (Same as:Atrovent) Ipratropium Notes: SEE RT Inactive Palouse 0.2 MG/ML DOCUMENTATION 2019 [facility] Inhalant Solution (Same as:Atrovent) Propranolol Notes: Give Inactive with food. 2019 [facility] (Same as: Inderal) Amlodipine Notes: (Same No Longer as: Norvasc) Active 2018 [facility] Fluoxetine Notes: (Same No Longer as: Prozac, Active 2019 [facility] Sarafem) zolpidem Notes: (Same No Longer As: Ambien) Active 2018 [facility] Albuterol 0.83 Notes: SEE RT No Longer 03/12/ H MG/ML Inhalant DOCUMENTATION Active 2018 [facility] Solution (Same as: Proventil) potassium Notes: (Same Inactive phosphate as: K 2018 [facility] Phosphate.) Do not infuse phosphorous concurrently in the same line as TPN or IVF that contains calcium. For double lumen central lines, phosphorous may be infused in a separate lumen from TPN. 1 mMol phoshate has 1.47 mEq potassium Infuse over 4 hours Docusate Notes: (Same No Longer as: Colace) Active 2018 [facility] (Do Not Crush) sennosides, [facility] Notes: (Same No Longer 03/12/ H as: Senokot) Active 2018 [facility] Saline Flush 0.9% Notes: No Longer preservative Active 2018 [facility] free. Budesonide 0.5 Notes: (Same No Longer MG/ML Inhalant As: Pulmicort) Active 2018 [facility] Solution glucagon 1 mg, Route: No Longer IV, Drug form: Active 2018 [facility] PDR/INJ, PRN, PRN Blood Glucose Results, Start date: 03/12/19 8:43:00 TIE PRESSER, Duration: 30 day, Stop date: 04/11/19 8:42:00 TIE PRESSER, 0 Humalog Notes: (Same No Longer as: Humalog) Active 2018 [facility] Roll in palms of hands gently; Do not shake vigorously. WASTE: F/P - Black; E - Rad Trash Bin Stable for 28 days at room temperature. Expires in days from Date Dextrose 50% in 50 mL, Route: No Longer Water IV IVP, Start Active 2018 [facility] date: 03/12/19 8:42:00 TIE PRESSER, Duration: 30 day, Stop date: 04/11/19 8:41:00 TIE PRESSER, PRN Blood Glucose Results, 0 Potassium Chloride [...] s with feeding tube less than 14 Portuguese (Dobhoff, J-tube etc) and pediatric and patients. Albuterol 0.833 Notes: (Same Inactive MG/ML / as: Duoneb) 2018 [facility] Ipratropium Palouse 0.167 MG/ML Inhalant Solution [DuoNeb] Potassium Chloride Notes: (Same Inactive as: KCL) 2018 [facility] Infuse no faster than 10 mEq/hr if given peripherally. sodium phosphate Notes: Infuse Inactive over 4 hour. 2018 [facility] Do not infuse phosphorous concurrently in the same line as TPN or IVF that contains calcium. For double lumen central lines, phosphorous may be infused in a separate lumen from TPN. potassium Notes: (Same Inactive phosphate as: K 2018 [facility] Phosphate.) Do not infuse phosphorous concurrently in [...] WASTE: Inactive F/P - Sink; E 2018 [facility] Bin Magnesium Oxide Notes: (Same Inactive as: Mag-Ox 2018 [facility] 400) Magnesium oxide [id number] elemental magnesium Dose=____mg magnesium oxide (___mg elemental magnesium) Calcium Gluconate Notes: WASTE: Inactive F/P - Sink; E 2018 [facility] Bin Calcium Carbonate Notes: (Same Inactive 500 MG Chewable As: Tums) 2018 [facility] Tablet Calcium Carbonate 500 mg = 200 mg elemental calcium Dose = mg calcium carbonate ( mg elemental calcium) Lovenox Notes: Nurse No Longer to ensure Active 2018 [facility] documentation of patient education per anticoagulatio n policy. (Same as: Lovenox) Albuterol 0.83 Notes: SEE RT Inactive MG/ML Inhalant DOCUMENTATION 2018 [facility] Solution (Same as: Proventil) Albuterol 0.833 Notes: (Same Inactive MG/ML / as: Duoneb) 2018 [facility] Ipratropium Palouse 0.167 MG/ML Inhalant Solution Saline Flush 0.9% Notes: No Longer preservative Active 2018 [facility] free. Acetaminophen Notes: Do not No Longer exceed 4 Active 2018 [facility] gm/day. (Same as: Tylenol) Solu-Medrol Notes: (Same Inactive as:Solu-MEDROL 2019 [facility] , A-Methapred) Allergies, Adverse Reactions, Alerts Substance Category Reaction Severity Reaction Status Date Comments S ource type Reported penicillins Assertion Penicillin Drug Active G allergy [facility] Benzathine, 300,000 U/ML,Inject ion (systemic), injection iodine Assertion Drug Active topical allergy [facility] Immunizations No Data Provided for This Section Results Order Name Results Value Reference Date Interpretation Comments Johanna rce Range ELECTROLYT AGAP 7.7 10.0 - 03/14 ES 20.0 [facility] ELECTROLYT Glucose Lvl 123 70 - 99 03/14 [facility] ELECTROLYT BUN 28 7 - 22 03/14 [facility] ELECTROLYT Creatinine 1.20 0.50 - 03/14 ES Lvl 1.40 /2019 [facility] ELECTROLYT Sodium Lvl 137 135 - 145 03/14 [facility] ELECTROLYT Potassium 3.7 3.5 - 5.1 03/14 ES Lvl [facility] ELECTROLYT Chloride Lvl 100 95 - 109 03/14 [facility] ELECTROLYT CO2 33 24 - 32 03/14 [facility] ELECTROLYT Calcium Lvl 8.9 8.5 - 10.5 03/14 [facility] ELECTROLYT eGFR 54 03/[address] [facility] Comment: The [facility] eGFR is calculated using the CKD-EPI formula. [...] HEMATOLOGY WBC 16.8 3.7 - 10.4 03/14 /2019 [facility] HEMATOLOGY RBC 3.63 4.20 - 03/14 MH 5.40 /2019 [facility] HEMATOLOGY Hgb 10.8 12.0 - 03/14 MH 16.0 /2019 [facility] HEMATOLOGY Hct 32.2 36.0 - 01 MH 48.0 /2019 [facility] HEMATOLOGY MCV 88.8 80.0 - 03/14 MH 98.0 /2019 [facility] HEMATOLOGY MCH 29.6 27.0 - 03/14 MH 31.0 /2019 [facility] HEMATOLOGY MCHC 33.4 32.0 - 03/14 MH 36.0 /2019 [facility] HEMATOLOGY RDW 15.6 11.5 - 03/14 MH 14.5 /2019 [facility] HEMATOLOGY Platelet 251 133 - 450 03/14 /2019 [facility] HEMATOLOGY MPV 8.2 7.4 - 10.4 03/14 [facility] HEMATOLOGY Segs 89.1 45.0 - 03/14 MH 75.0 /2020 [facility] HEMATOLOGY Lymphocytes 7.7 20.0 - 01 MH 40.0 /2020 [facility] HEMATOLOGY Monocytes 3.1 2.0 - 12.0 / [facility] HEMATOLOGY Basophils 0.1 0.0 - 1.0 03/14 [facility] HEMATOLOGY Neutrophils 15.0 1.5 - 8.1 / MH # /2020 [facility] HEMATOLOGY Lymphocytes 1.3 1.0 - 5.5 01/ MH # /2020 [facility] HEMATOLOGY Monocytes # 0.5 0.0 - 0.8 [...] AGAP 11.0 10.0 - 03/13 MH 20.0 [facility] CHEM PANEL Calcium Lvl 9.2 8.5 [...] 03/13 [facility] CHEM PANEL eGFR 54 03/13 [facility] Comment: The [facility] eGFR is calculated using the CKD-EPI formula. [...] 2.7 1.8 - 2.4 03/13 Lvl /2018 [facility] CHEM PANEL Phosphorus 6.5 2.5 - 4.5 03/13 /2018 [facility] HEMATOLOGY WBC 23.3 3.7 - 10.4 03/13 [facility] HEMATOLOGY RBC 3.78 4.20 - 03/13 MH 5.40 /2018 [facility] HEMATOLOGY Hgb 11.2 12.0 - 03/13 MH 16.0 [facility] Hct 33.5 36.0 - 03/13 MH 48.0 [facility] HEMATOLOGY MCV 88.6 80.0 - 03/13 MH 98.0 [facility] MCH 29.6 27.0 - 03/13 MH 31.0 [facility] MCHC 33.4 32.0 - 03/13 MH 36.0 [facility] RDW 15.1 11.5 - 03/13 14.5 [facility] Platelet 279 133 - 450 03/13 [facility] MPV 7.7 7.4 - 10.4 03/13 [facility] RBC Morph Normal Normal 03/13 (03/13/19 1:50 AM) [facility] HEMATOLOGY Plt Morph Normal Normal 03/13 (03/13/19 1:50 AM) [facility] HEMATOLOGY Segs 90.8 45.0 - 03/13 MH 75.0 [facility] Lymphocytes 6.7 20.0 - 03/13 MH 40.0 [facility] HEMATOLOGY Monocytes 2.5 2.0 - 12.0 03/13 [facility] HEMATOLOGY Eosinophils 0.0 0.0 - 4.0 03/13 [facility] HEMATOLOGY Basophils 0.0 0.0 - 1.0 03/13 [facility] HEMATOLOGY Neutrophils 21.1 1.5 - 8.1 03/13 # [facility] HEMATOLOGY Lymphocytes 1.6 1.0 - 5.5 03/13 MH # /2018 [facility] HEMATOLOGY Monocytes # 0.6 0.0 - 0.8 03/13 [facility] HEMATOLOGY Eosinophils 0.0 0.0 - 0.5 03/13 # /2018 [facility] HEMATOLOGY Basophils # 0.0 0.0 - 0.2 03/13 [facility] PARATHYROI Ca Ion WB 1.10 1.05 - 03/13 D PROFILE 1. [facility] PARATHYROI Ca Norm WB 1.14 1.05 - 03/13 D PROFILE . [facility] Gram Stain Less Than 25 Squamous Epithelial Cells/Lpf Report Rare WBC's [facility] Rare Gram Positive Rods Good Quality Specimen Culture: Few Yeast 03/13 Respiratory Normal Respiratory Alysia [facility] w/Gram Stain CARDIAC Troponin-I 0.13 0.00 - 03/12 ENZYMES 0. [facility] CHEM PANEL Phosphorus 2.6 2.5 - 4.5 03/12 [facility] CHEM PANEL Magnesium 2.5 1.8 - 2.4 03/12 Lvl [facility] CHEM PANEL Glucose Lvl 176 70 - 99 03/12 [facility] CHEM PANEL BUN 10 7 - 22 03/12 [facility] CHEM PANEL Creatinine 1.30 0.50 - 03/12 Lvl 1.40 [facility] CHEM PANEL Sodium Lvl 139 135 - 145 03/12 [facility] CHEM PANEL Potassium 2.2 3.5 - 5.1 03/12 Result Lv Comment: [facility] Critical Result(s) called to Ana lugo 03/12/2019 16:29 by tali. Read back OK. CHEM PANEL Chloride Lvl 102 95 - 109 03/12 [facility] CHEM PANEL CO2 22 24 - 32 03/12 [facility] CHEM PANEL AGAP 17.2 10.0 - 03/12 MH 20.0 [facility] CHEM PANEL Calcium Lvl 8.6 8.5 - 10.5 03/12 [facility] CHEM PANEL eGFR 49 03/12 Result Comment: The [facility] eGFR is calculated using the CKD-EPI formula. [...] <0.05 0.00 - 03/12 n Lvl 0.10 [facility] BACTERIAL MRSA by PCR Negative 03/12 - SEROLOGY (03/12/19 8:32 AM) /2018 [facility] MOLECULAR Source Nasophrngl Swb 03/12 DIAGNOSTIC Respiratory *NA* [facility] Panel PCR (03/12/19 6:09 AM) MOLECULAR Influenza A Negative Negative 03/12 DIAGNOSTIC PCR *NA* [facility] (03/12/19 6:09 AM) MOLECULAR Influenza B Negative Negative 03/12 DIAGNOSTIC PCR *NA* [facility] (03/12/19 6:09 AM) MOLECULAR RSV PCR Negative Negative 03/12 DIAGNOSTIC *NA* [facility] (03/12/19 6:09 AM) CARDIAC Troponin-I 0.08 0.00 - 03/12 ENZYMES 0.40 [facility] CHEM PANEL B/C Ratio 8 6 - 25 03/12 [facility] CHEM PANEL Total 7.3 6.4 - 8.4 03/12 [facility] CHEM PANEL Albumin Lvl 3.6 3.5 - 5.0 03/12 [facility] CHEM PANEL Globulin 3.7 2.7 - 4.2 03/12 [facility] CHEM PANEL A/G Ratio 1.0 0.7 - 1.6 03/12 [facility] CHEM PANEL ALT 67 0 - 65 03/12 [facility] CHEM PANEL AST 29 0 - 37 03/12 [facility] CHEM PANEL Alk Phos 138 39 - 136 03/12 [facility] CHEM PANEL Bili Total 0.5 0.2 - 1.3 03/12 [facility] CHEM PANEL Magnesium 2.4 1.8 - 2.4 03/12 Lvl /2018 [facility] CHEM PANEL Phosphorus 2.4 2.5 - 4.5 03/12 [facility] HEMATOLOGY WBC 13.8 3.7 - 10.4 03/12 [facility] HEMATOLOGY RBC 3.99 4.20 - 03/12 MH 5.40 /2018 [facility] HEMATOLOGY Hgb 11.8 12.0 - 03/12 MH 16.0 /2018 [facility] HEMATOLOGY Hct 35.0 36.0 - 03/12 MH 48.0 [facility] HEMATOLOGY MCV 87.7 80.0 - 03/12 MH 98.0 /2018 [facility] HEMATOLOGY MCH 29.6 27.0 - 03/12 MH 31.0 [facility] MCHC 33.7 32.0 - 03/12 MH 36.0 [facility] HEMATOLOGY RDW 15.0 11.5 - 03/12 MH 14.5 [facility] Platelet 252 133 - 450 03/12 [facility] HEMATOLOGY MPV 7.8 7.4 - 10.4 03/12 [facility] HEMATOLOGY Segs 92.7 45.0 - 03/12 MH 75.0 [facility] Lymphocytes 5.9 20.0 - 03/12 MH 40.0 [facility] HEMATOLOGY Monocytes 1.0 2.0 - 12.0 03/12 [facility] HEMATOLOGY Basophils 0.4 0.0 - 1.0 03/12 [facility] HEMATOLOGY Neutrophils 12.8 1.5 - 8.1 03/12 MH # /2018 [facility] HEMATOLOGY Lymphocytes 0.8 1.0 - 5.5 03/12 # /2018 [facility] HEMATOLOGY Monocytes # 0.1 0.0 - 0.8 03/12 [facility] HEMATOLOGY Basophils # 0.1 0.0 - 0.2 03/12 [facility] PARATHYROI Ca Ion WB 1.07 1.05 - 03/12 MH D PROFILE . [facility] PARATHYROI Ca Norm WB 1.06 1.05 - 03/12 MH D PROFILE . [facility] SPECIAL Hgb A1C 5.3 <=5.6 % 03/12 CHEMISTRY [facility] Pathology Reports No Data Provided for This Section Diagnostic Reports Report Value Date Source Abdomen AP DX PROCEDURE INFORMATION: 03/13/2019 [facility] est Exam: XR Abdomen, 1 View [...] pattern. Eric Tang MD On 03/13/2019 09:40:44; VR-ID [id number] Chest 1view DX PROCEDURE INFORMATION: 03/12/2019 [facility] est Exam: XR Chest, 1 View [...] findings. Madison Sotelo MD On 03/12/2019 06:33:15; -[facility] [id number] Consultation Notes No Data Provided for This Section Discharge Summaries No Data Provided for This Section History and Physicals No Data Provided for This Section Vital Signs Vital Sign Value Date Comments Source Temperature Oral (F) 97.5 F 03/14/2019 [facility] Heart Rate 91 03/14/2019 [facility] Respitory Rate 20 03/14/2019 [facility] Systolic (mm Hg) 129 03/14/2019 [facility] t Diastolic (mm Hg) 75 03/14/[address] [facility] [address] Temperature Oral (F) 97.8 F 03/14/2019 [facility] Heart Rate 93 03/14/2019 [facility] Respitory Rate 20 03/14/2019 [facility] Systolic (mm Hg) 126 03/14/2019 [facility] Diastolic (mm Hg) 77 03/14/[address] [facility] [address] Temperature Oral (F) 97.8 F 03/14/2019 [facility] Heart Rate 97 03/14/2019 [facility] Respitory Rate 18 03/14/2019 [facility] Systolic (mm Hg) 134 03/14/2019 [facility] Diastolic (mm Hg) 75 03/14/2019 [facility] Height 175.26 cm 03/12/2019 [facility] Weight 111.4 03/12/2019 [facility] BMI Calculated 36.27 03/12/2019 [facility] Encounters Location Location Encounter Encounter Reason Attending ADM DC Stat us Source Details Type Number For Provider Date Date Visit [facility] Inpatient [id number] [place] 03/12 03/14 Steve Leonard /2018 [facility] Procedures No Data Provided for This Section Assessment and Plan Assessment and Plan Date Source Extracted from:Title: Work excuse 03/14/2019 Johanna weathers Author: Dilan Redding MD Date: 03/14/19 To Whom It May Concern KENDALLSTACYMY M1970 00:00 For Medical reasons, please excuse OLIVIA STACY MoodyHARRISON [place] / 1970 00:00 from work for the following dates: Start: 03/12/2019 End: 03/14/2019 patient may return to work on 03/19/2018 If you need additional information, please feel free to cont act our office. Sincerely, Dilan Redding MD. [facility] Inpatient Hospitalist. [facility]. Plan of Care No Data Provided for This Section Social History Social History Date Source Social History TypeResponse 03/12/2019 [facility] Alcohol Never Substance Abuse Use: None. Smoking [...]
--- OUTSIDE RECORDS SUMMARY | 2020-04-14 10:35 | XMS REPORT | Continuity of Care Document ---
:1970 Author Organization [facility] t Address [address] [place] [address] Care Team Providers Name Role Phone Muadityaeb Attending Clinician Aisha Admitting Clinician Problems Condition Condition Condition Status Onset Resolution Last Treating Co mments Source Name Details Category Date Date Treatment Clinician Date COPD Diagnosis Active 2018-032019-03-19 Mem oria EXACERBATI -30 21:56:00 l ON COPD 00:00: Steev EXACERBATI 00 ON Active 9 [facility] Illness, Problem 2019-03-16 Mem oria unspecifie 22:50:06 l d Illness, Livan n unspecifie d 03/16/2019 [facility] ILLNESS, Diagnosis Active 2019-03-14 M emoria UNSPECIFIE 02:23:00 l D ILLNESS, Livan n UNSPECIFIE D Active [facility] CHRONIC Diagnosis Active 2019-03-19 Me moria OBSTRUCTIV 21:56:00 l E CHRONIC [place] PULMONARY OBSTRUCTIV DISEASE W E PULMONARY DISEASE W Active [facility] Allergies, Adverse Reactions, Alerts Allergy Allergy Status [...] tab, PO, l tablet 21:21: Daily, # [place] 11 30 tab, 0 Refill(s), Pharmacy: [id number] lisinopril 2020-0 Yes 20 mg = 1 Me moria 20 mg oral 1-01 tab, PO, l tablet 21:21: Daily, # Steve 08 30 tab, 0 Refill(s), Pharmacy: [id number] albuterol 2020-0 Yes 2 puff, Memor ia 90 mcg/inh - INHALATION l inhalation 21:20: , QID, PRN H ermann aerosol 54 as needed for wheezing, # 1 ea, 3 Refill(s), Pharmacy: [facility] #[id number] predniSONE 2020-0 Yes 40 mg = 2 Me moria 20 mg oral 1-01 tab, PO, l tablet 21:20: Daily, X 3 Kimberly nn 51 day, # 6 tab, 0 Refill(s), Pharmacy: [facility] #[id number] Symbicort 2020-0 Yes 2 puff, Memor ia 160/4.5 03-14 INHALER, l inhalation 21:20: BID, # 1 Her castillo aerosol 45 ea, 3 with Refill(s), adapter Pharmacy: [facility] #[id number] lisinopril 2020-0 No 20 mg = 1 Me moria 20 mg oral 1-01 tab, PO, l tablet 20:21: Daily, # [place] 00 30 tab, 0 Refill(s) amLODIPine 2020-0 [...] patch 03-14 Remove old l 14:59: patch Steve before applicatio n of new patch. WASTE: F/P - P Waste Black; E - P Waste Black Simethicone No Notes: Errol deon 03-14 (Same as: l 10:41: Mylicon) Zolpidem 2018-03 Yes 10 mg = 1 Errol deon tartrate 10 tab, PO, l MG Oral 19:55: Bedtime, 0 Herm abran Tablet 00 Refill(s) [Ambien] zinc 2018-03 No 220 mg = 1 Memoria sulfate 220 cap, PO, l mg oral 19:51: Daily, 0 Livan n capsule 00 Refill(s) Sulfamethox 2018-03 No amlodipine Memoria azole 800 2 , PO, l MG / 19:51: Q12H, 0 [place] Trimethopri 00 Refill(s) m 160 MG Oral Tablet Amlodipine 2018-03 No PO, Daily, M emoria 2-31 0 l 19:51: Refill(s) [place] Nicotine 2018-03 No Notes: Memoria 2-31 (Same as: l 16:30: Habitrol) "Remove old patch before applicatio n of new patch" WASTE: F/P - P Waste Black; E - P Waste Black Lisinopril 2018-03 No Notes: Memor ia 2-31 (Same as: l 16:12: Prinivil, Steve 00 Zestril) Lisinopril 2018-03 No Notes: Memor ia 2-31 (Same as: l 15:32: Prinivil, [place] 00 Zestril) Metoprolol 2018-03 No Notes: Memor ia 2-31 (Same as: l 15:31: Lopressor) Push over 2 minutes metoprolol 2018-03 No Notes: Memor ia tartrate 2-31 (Same as: l 15:29: Lopressor) Reglan 2018-03 No Notes: Memoria 2-31 (Same as: l 15:27: Reglan) Steve 00 Azithromyci 2018-03 No Notes: Errol deon n 2-31 (Same As: l 15:00: Zithromax [place] 00 IV) azithromyci 2018-03 No Notes: Errol deon n 500 mg 2-31 Take 1 l oral tablet 15:00: hour Livan n 00 before or 2 hours after meals. (Same As: Zithromax) Zofran 2018-03 No Notes: Memoria 2-31 (Same as: l 14:44: Zofran) MEDICATION WASTE Product Size: 4 mg Product Wasted: ___ mg Zofran 2018-03 No 4 mg, Memoria Route: l 13:46: IVP, Drug form: INJ, Q8H, Dosing Weight 111.4, kg, PRN Nausea, Start date: 03/13/19 7:46:00 TUNNELING MACHINE OPERATOR, Duration: 30 day, Stop date: 04/12/19 7:45:00 TUNNELING MACHINE OPERATOR metoprolol 2018-03 No Notes: Memor ia tartrate - (Same as: l 03:00: Lopressor) Sublimaze 2018-03 No Notes: Memori a 2- (Same as: l 02:25: Sublimaze) Preservat arian free. Zofran 2018-03 No Notes: Memoria 2-31 (Same as: l 02:15: Zofran) MEDICATION WASTE Product Size: 4 mg Product Wasted: ___ mg Fentanyl 2018-03 No Notes: Memoria 2-31 (Same as: l 02:15: Sublimaze) Preservat arian free. Magnesium 2018-03 No Notes: Memori a Sulfate - WASTE: F/P l 23:08: - Sink; E - [facility] No Notes: Memoria 2-30 pharmacy l [...] s with feeding tube less than 14 Lebanese (Dobhoff, J-tube etc) and pediatric and patients. potassium 2018-03 No Notes: Memori a phosphate 2-30 (Same as: l 22:55: K Steve Phosphate. ) Do not infuse phosphorou s [...] kg, Priority: STAT, Start date: 03/12/19 16:46:00 TUNNELING MACHINE OPERATOR, Stop date: 03/12/19 16:46:00 TUNNELING MACHINE OPERATOR potassium 2018-03 No Notes: Memori a phosphate 2-30 (Same as: l 22:46: K [place] 00 Phosphate. ) Do not infuse phosphorou [...] IV 21:53: IVPB, Start date: 03/12/19 15:53:00 TUNNELING MACHINE OPERATOR, Duration: 30 day, Stop date: 04/11/19 15:52:00 TUNNELING MACHINE OPERATOR, PRN Line Flush, 0 Hydralazine 2018-03 No Notes: Errol deon 2-30 (Same as: l 20:58: Apresoline [place] ) Push over 5 minutes Labetalol 2018-03 No Notes: Memori a 2-30 (Same as: l 20:58: Normodyne, Steve Trandate) Push over 2 minutes Give bolus over 2-3 minutes. methylPREDN 2018-03 No Notes: Errol deon ISolone 2-30 (Same l SODium 20:58: as:Solu-ME Kimberly nn SUCCinate 00 DROL, A-Methapre d) Ondansetron 2018-03 No Notes: Errol deon 2-30 (Same as: l 18:22: Zofran) MEDICATION WASTE Product Size: 4 mg Product Wasted: ___ mg Ipratropium 2018-03 No Notes: SEE Memoria Newcomb 0.2 2-30 RT l MG/ML 18:00: DOCUMENTAT Livan n Inhalant 00 ION (Same Solution as:Atroven t) Ipratropium 2018-03 No Notes: SEE Memoria Newcomb 0.2 2-30 RT l MG/ML 17:00: DOCUMENTAT [...] Crush) sennosides, 2018-03 No Notes: Errol deon DETENTION 2-30 (Same as: l 15:00: Senokot) Saline 2018-03 No Notes: Memoria Flush 0.9% 2-30 preservati l 15:00: ve free. Budesonide 2018-03 No Notes: Memor ia 0.5 MG/ML 2-30 (Same As: l Inhalant 14:54: Pulmicort) Her castillo Solution 00 glucagon 2018-03 No 1 mg, Memoria 2-30 Route: IV, l 14:43: Drug form: Steve 00 PDR/INJ, PRN, PRN Blood Glucose Results, Start date: 03/12/19 8:43:00 TUNNELING MACHINE OPERATOR, Duration: 30 day, Stop date: 04/11/19 8:42:00 TUNNELING MACHINE OPERATOR, 0 Humalog 2018-03 No Notes: Memoria 2-30 (Same as: l 14:42: Humalog) [place] 00 Roll in palms of hands gently; Do not shake vigorously . WASTE: F/P - Black; E - Municipal Trash Bin Stable for 28 days at room temperatur e. Expires in days from ____Date Dextrose 2018-03 No 50 mL, Memoria 50% in 2-30 Route: l Water IV 14:42: IVP, Start Her castillo 00 date: 03/12/19 8:42:00 TUNNELING MACHINE OPERATOR, Duration: 30 day, Stop date: 04/11/19 8:41:00 TUNNELING MACHINE OPERATOR, PRN Blood Glucose Results, 0 [...] s with feeding tube less than 14 Lebanese (Dobhoff, J-tube etc) and pediatric and patients. Albuterol 2018- No Notes: Memori a 0.833 MG/ML 2-30 (Same as: l / 13:00: Duoneb) Steve Ipratropium 00 Newcomb 0.167 MG/ML Inhalant Solution [DuoNeb] Potassium 2018-03 No Notes: Memori a Chloride 2-30 (Same as: l 12:16: KCL) [place] 00 Infuse no faster than 10 mEq/hr [...] 2-30 (Same as: l odium 12:16: Phos-NaK) [place] phosphate 00 Each 1.5 250 mg-280 gm pkt has mg-160 mg 250mg oral powder phosphorou for s. Mix reconstitut w/2.5oz ion water and stir. Magnesium 2018-03 No Notes: Memori a Sulfate 2-30 WASTE: F/P l 12:16: - Sink; E Steve 00 - Municipal Trash Bin Magnesium 2018-03 No Notes: Memori a Oxide 2-30 (Same as: l 12:16: Mag-Ox [place] 00 400) Magnesium oxide 926wp=420g g elemental magnesium Dose=____m g magnesium oxide (___mg elemental magnesium) Calcium 2018-03 No Notes: Memoria Gluconate 2-30 WASTE: F/P l 12:16: - Sink; E Steve 00 - Municipal Trash Bin Calcium 2018-03 No Notes: Memoria Carbonate 2-30 (Same As: l 500 MG 12:16: Tums) [place] Chewable 00 Calcium Tablet Carbonate 500 mg = 200 mg elemental calcium Dose = mg calcium carbonate ( mg elemental calcium) Lovenox 2018-03 No Notes: Memoria 2-30 Nurse to l 12:00: ensure Steve 00 documentat ion of patient education per [facility] ation policy. (Same as: Lovenox) Albuterol 2018-03 No Notes: SEE Me moria 0.83 MG/ML 2-30 RT l Inhalant 11:39: DOCUMENTAT Her castillo Solution 00 ION (Same as: Proventil) Albuterol 2018-03 No Notes: Memori a 0.833 MG/ML 2-30 (Same as: l / 11:35: Duoneb) [place] Ipratropium 00 Newcomb 0.167 MG/ML Inhalant Solution Saline 2018-03 No Notes: Memoria Flush 0.9% 2-30 preservati l 11:35: ve free. [place] 00 Acetaminoph 2018-03 No Notes: Do M emoria en 2-30 not exceed l 11:34: 4 gm/day. Steve 00 (Same as: Tylenol) Solu-Medrol 2018-03 No Notes: Errol deon 2-30 (Same l 11:16: as:Solu-ME [place] 00 DROL, A-Methapre d) Vital Signs Vital Name Observation Time Observation Value Comments Source Temperature Oral (F) 2019-03-14 18:00:00 97.5 F [facility] [place] Heart Rate 2019-03-14 18:00:00 [facility] Steve Respitory Rate 2019-03-14 18:00:00 Memori al Steve Systolic (mm Hg) 2019-03-14 18:00:00 Errol rial [place] Diastolic (mm Hg) 2019-03-14 18:00:00 Mem orial [place] Temperature Oral (F) 2019-03-14 14:00:00 97.8 F [facility] [place] Heart Rate 2019-03-14 14:00:00 [facility] [place] Respitory Rate 2019-03-14 14:00:00 Memori al Steve Systolic (mm Hg) 2019-03-14 14:00:00 Errol rial Steve Diastolic (mm Hg) 2019-03-14 14:00:00 Mem orial [place] Temperature Oral (F) 2019-03-14 02:10:00 97.8 F [facility] [place] Heart Rate 2019-03-14 02:10:00 [facility] [place] Respitory Rate 2019-03-14 02:10:00 Memori al Steve Systolic (mm Hg) 2019-03-14 02:10:00 Errol rial [place] Diastolic (mm Hg) 2019-03-14 02:10:00 Mem orial [place] Height 2019-03-12 11:55:00 175.26 cm [facility] [place] Weight 2019-03-12 11:55:00 [facility] Steve BMI Calculated 2019-03-12 11:55:00 Steph al Steve Procedures This patient has no known procedures. Encounters Start End Encounter Admission Attending Care Care Encounter Source Date/Time Date/Time Type Type Clinicians Facility Department ID 2019-03-12 Inpatient [facility] [id number] [facility] W 05:10:00 2019-03-12 2019-03-14 Outpatient Aisha [facility] [id number] 05:10:00 17:08:00 Nehemias 64 Results Test [...] code = MCH) 29.6 pg 27.0-31.0 [facility] VbvdcmyVXVBLZDPMS4269-02-83 10:10:0033.4[facility] 2019-03-14 10:10:0015.6[facility] RjqegyfETDWOVNWSM1202-90-10 10:10:69674Hpyoxuib LzygbsxNDWOPYTFBE7719-47-19 10:10:008.2[facility] EhydwxqJXQOBQHEPY7361-82-01 10:10:0089.1[facility] SzlmsgpFEQSELCTJW9968-12-93 10:10:007.7[facility] Steve PISNWSDNTM8554-78-40 10:10:003.1[facility] AihxaodGCHLKUONOF0692-63-88 10:10:000.1 [facility] DjtcnaaIYNEKKABCY9685-37-67 10:10:0015.0[facility]annHEMATOLOGY 2019-03-14 10:10:001.3[facility] OpynqkiSKKRGRUBGZ5159-34-84 10:10:000.5[facility] HermannCHEM YFISZ8519-57-11 07:50:99183Adaegnlg HermannCHEM FXIGM5438-18-07 07:50:0016[facility] HermannCHEM BDPAX5848-80-90 07:50:001.20[facility] HermannCHEM BYENR8369-77-74 07:50:18980Mhimglkd HermannCHEM BVPCH9395-32-49 07:50:004.0 [facility]annCHEM TRXVO4531-08-43 07:50:81363Stqhpewz HermannCHEM PANEL 2019-03-13 07:50:0029[facility] HermannCHEM IQMDE6569-69-23 07:50:0011.0[facility] HermannCHEM TARDQ2485-48-27 07:50:009.2[facility] HermannCHEM QAXVY7616-02-91 07:50:00 Test Item Value Reference Range Interpretation Comments B/C Ratio (test code = B/C Ratio) 13 1 6-25 [facility]annCHEM RLGIL2606-17-78 07:50:006.6[facility] HermannCHEM PANEL 2019-03-13 07:50:003.3[facility] HermannCHEM EPVMR4968-60-80 07:50:003.3[facility]annCHEM EHEJU9721-47-62 07:50:00 Test Item Value Reference Range Interpretation Comments A/G Ratio (test code = A/G Ratio) 1.0 1 0.7-1.6 [facility]annCHEM MJLWS3833-46-74 07:50:0056[facility] HermannCHEM PANEL 2019-03-13 07:50:0026[facility] HermannCHEM EXJPA2848-49-18 07:50:31821Ksatuxvv HermannCHEM WUCZH1963-50-30 07:50:000.7[facility] HermannCHEM JSPWF2316-09-37 07:50:0054[facility] HermannCHEM PPBRM0623-89-78 07:50:002.7[facility]annCHEM JQYBQ4107-70-35 07:50:006.5[facility] EcayudySOVXDPGBJX9244-01-87 07:50:0023.3 [facility] PsmucuoPGGFSXUEFK3732-72-55 07:50:003.78[facility] HermannHEMATOLOGY 2019-03-13 07:50:0011.2[facility] RgygferGVOGNZWRFO4766-29-94 07:50:0033.5[facility] UlimtoyVDLYSTTFUX0432-65-40 07:50:0088.6[facility] JusdeswUEQGGNGNHM1392-22-94 07:50:00 Test Item Value Reference Range Interpretation Comments MCH (test code = MCH) 29.6 pg 27.0-31.0 [facility] BlnqjfpCXXPQIPNEM5107-33-00 07:50:0033.4[facility] HermannHEMATOLOGY 2019-03-13 07:50:0015.1[facility] RxhqgbjLTRAVFEEOV8338-39-05 07:50:21756Xfkykupt DtfopqzPFOQESPWOX2470-99-89 07:50:007.7[facility] YasjutaOPZKDGZYQL9737-03-94 07:50:00Normal (03/13/19 1:50 AM)[facility] EyiqqgrOLVTYNRAYD1740-04-92 07:50:00 Normal (03/13/19 1:50 AM)[facility] HpmhbjkANCPJDSXVR1056-44-57 07:50:0090.8 [facility] KwzjqikYLNTQYMHQJ8735-92-44 07:50:006.7[facility] HermannHEMATOLOGY 2019-03-13 07:50:002.5[facility] GdmkkeeWLEUUOAOSC0683-78-76 07:50:000.0[facility] LmmmdhsQPISDAHRNT7300-82-06 07:50:000.0[facility] JehtggrTZLXPEGCPE2750-00-84 07:50:0021.1[facility] HvufslmODMUNIADDN7159-63-31 07:50:001.6[facility] Steve FZSELZFTJI3092-11-21 07:50:000.6[facility] TyfnavsIIOBJURWSB1147-11-79 07:50:000.0 [facility] GamjqwkUNSSHXLVVQ2505-53-26 07:50:000.0[facility] HermannPARATHYROID IUCIHNU8662-66-32 07:50:001.10[facility] HermannPARATHYROID ARZOTEU4742-12-82 07:50:001.14[facility] HermannCARDIAC QJYYMJU8770-84-15 18:48:000.13[facility] HermannCHEM SGPVY8804-94-26 18:48:002.6[facility] HermannCHEM GEVEX7089-17-09 18:48:002.5[facility] HermannCHEM RFHCI0339-13-68 18:48:36812Wmdjyspl HermannCHEM NPOJY9524-87-81 18:48:0010[facility] HermannCHEM IWRRY2738-49-12 18:48:001.30 [facility]annCHEM VFRTF4755-65-55 18:48:67067Phiksjbr HermannCHEM PANEL 2019-03-12 18:48:002.2[facility] HermannCHEM BNMEO2519-75-75 18:48:14830Isnuzvsi HermannCHEM XKWXO8953-26-60 18:48:0022[facility] HermannCHEM NZBQZ0910-31-49 18:48:0017.2[facility] HermannCHEM JWQKH2366-56-03 18:48:008.6[facility] HermannCHEM QZXKZ0779-37-39 18:48:0049[facility] HermannCHEM NMTFE1905-71-46 18:48:00<0.05 [facility] HermannBACTERIAL - MPADCQAK6609-06-81 14:32:00Negative (03/12/19 8:32 AM)[facility] HermannMOLECULAR NCOJNUVUJM1770-22-72 12:09:00Nasophrngl Swb *NA*(03/12/19 6:09 AM)[facility] HermannMOLECULAR OUWHPTHVPT8527-27-35 12:09:00 Negative *NA*(03/12/19 6:09 AM)[facility] HermannMOLECULAR JELIMXHWWF7910-69-76 12:09:00Negative *NA*(03/12/19 6:09 AM)[facility] HermannMOLECULAR DIAGNOSTIC 2019-03-12 12:09:00Negative *NA*(03/12/19 6:09 AM)[facility] HermannCARDIAC GOMWPAX5235-22-59 11:32:000.08[facility] HermannCHEM USAIS4198-99-91 11:32:00 Test Item Value Reference Range Interpretation Comments B/C Ratio (test code = B/C Ratio) 8 1 6-25 [facility]annCHEM EAKFH1604-93-57 11:32:007.3[facility] HermannCHEM PANEL 2019-03-12 11:32:003.6[facility] HermannCHEM EEWLB3048-97-72 11:32:003.7[facility] HermannCHEM XVCES6075-83-38 11:32:00 Test Item Value Reference Range Interpretation Comments A/G Ratio (test code = A/G Ratio) 1.0 1 0.7-1.6 [facility] HermannCHEM LGZLZ1538-46-37 11:32:0067[facility] HermannCHEM PANEL 2019-03-12 11:32:0029[facility] HermannCHEM PKELC4057-71-86 11:32:55912Nofyjyke HermannCHEM ADANM3709-92-55 11:32:000.5[facility] HermannCHEM SGASO4159-54-93 11:32:002.4[facility] HermannCHEM PDCUZ4888-10-04 11:32:002.4[facility] Steve UGBPYGJGSM4943-53-64 11:32:0013.8[facility] CnhrjueQDRQRWSJER2866-28-39 11:32:00 3.99[facility] UqnfvcfTSTGFWVGBN3869-33-28 11:32:0011.8[facility] HermannHEMATOLOGY 2019-03-12 11:32:0035.0[facility] KuqlwctIQXIPZPOXI3765-35-74 11:32:0087.7[facility] DtymnqjJLFSXNVGIC9408-70-48 11:32:00 Test Item Value Reference Range Interpretation Comments MCH (test code = MCH) 29.6 pg 27.0-31.0 [facility] UdzifgyVDDJTPCUDP6162-92-48 11:32:0033.7[facility] HermannHEMATOLOGY 2019-03-12 11:32:0015.0[facility] GmzfeteHICPFWJHPN8548-43-30 11:32:81936Vdaapgta OaevntzFZMPADNXIT2348-52-16 11:32:007.8[facility] LufzipcKLCEMSQROJ8297-02-88 11:32:0092.7[facility] FztqgoeOPLYTALJGR5087-41-53 11:32:005.9[facility] Steve CTOJLYFVGK6503-67-12 11:32:001.0[facility] JyzzujxFRZYVVVNUF1199-90-30 11:32:000.4 [facility] JkljtmqSOQUHDFEHS6358-63-04 11:32:0012.8[facility] HermannHEMATOLOGY 2019-03-12 11:32:000.8[facility] GpdmidqWZSAKCWICJ4434-30-34 11:32:000.1[facility] ZolhmqaFABNTFAGAO8431-48-08 11:32:000.1[facility] HermannPARATHYROID PROFILE 2019-03-12 11:32:001.07[facility] HermannPARATHYROID ACUAAAR5928-65-64 11:32:00 1.06[facility] HermannSPECIAL QAXEUTUCZ3304-51-86 11:32:005.3[facility] Steve
[2020-04-14 14:15] LABS: Absolute Lymphocytes (CBC) 2.8 K/uL (0.7-4.9); Basophils % 0.9 % (0-1.3); Hematocrit 37.6 % (36.0-45.0); Lymphocytes % 29.6 % (15.3-44.8); MPV 7.7 fL (7.6-11.3); RBC Red Blood Cell Count 4.78 M/uL (3.86-4.86)
[2020-04-14 14:32] LABS: Potassium 3.9 mmol/L (3.5-5.1)
[2020-04-14 14:49] LABS: Protime INR 17.93
[2020-04-14 15:49] LABS: Protime INR 17.29
--- NOTE | 2020-04-14 16:19 | RAD REPORT ---
EXAM DESCRIPTION: CT - Head Brain Wo Cont - 04/14/2020 4:07 pm CLINICAL HISTORY: abnormal labs, hypertension, Coumadin therapy COMPARISON: Head Brain Wo Cont dated 08/11/2017 TECHNIQUE: Axial 5 mm thick images of the head were obtained without IV contrast. All CT scans are performed using dose optimization technique as appropriate and may include automated exposure control or mA/KV adjustment according to patient size. FINDINGS: No intracranial hemorrhage, mass, edema or shift of mid-line structures. No acute infarcti on changes seen. No abnormal extra-axial fluid collections. Ventricles are normal. Mastoid air cells and visualized portions of the paranasal sinuses are clear. No acute bony findings. No changes from comparison. IMPRESSION: Negative non-contrast CT head examination.
--- NOTE | 2020-04-14 16:53 | P.CNS ---
Date of Consult: 04/14/20 Reason for Consult: ER Consult Requesting Physician: Igor Ontiveros Primary Care Provider: [facility]3] Chief Complaint: Elevated INR History of Present Illness: 49-year-old female with history of hypertension, CHF, history of pulmonary embolism on chronic anti coagulation therapy. Patient was sent to the ER due to elevated INR. She had reported some mild bleeding from her nose last week. She stopped her Coumadin on Tuesday of last week. She has been taking 5 mg daily. No recent change in diet, medication, or antibiotic use. Since stopping Coumadin she is not report any further bleeding. She denies any bleeding from her mouth, stool, or urine. She came to the ER after recommendation by her PCP due to elevated INR of 17 at clinic. Patient was evaluated emergency room. INR was 17. Recheck showed around the same range. CT head unremarkable. Patient had reported some dizziness over the past several weeks. Patient reports that she has been on Eliquis, Xarelto and Coumadin in the past for her pulmonary embolism. She is on Coumadin now due to her financial situation. No other complaints noted. Allergies iodine Allergy (Verified 08/29/13 14:40) Unknown Penicillins Allergy (Verified 01/15/20 22:36) UNK Home medications list reviewed: Yes Home Medications: Sertraline [Zoloft*] 1 tab PO DAILY 11/17/16 Zolpidem Tartrate [Ambien] 1 tab PO BEDTIME 11/17/16 Fluticasone/Salmeterol [Airduo Respiclick 113-14 Mcg] 1 each IH BID 30 Days #1 aer.pow.ba 12/31/19 Warfarin Sodium 10 mg PO BEDTIME 30 Days #30 tablet 12/31/19 Budesonide/Formoterol Fumarate [Symbicort 160-4.5 Mcg Inhaler] 1 puff IH BID 01/15/20 Guaifen W/Codeine Syrup [ROBITUSSIN A-C Syrup*] 10 ml PO Q12HP PRN #100 ml 08/31 Mometasone/Formoterol [Dulera 200 Mcg/5 Mcg Inhaler] 2 puff IH BID #1 inhaler 01/18/20 predniSONE [Prednisone] 20 mg PO BID #30 tablet 01/18/20 Cefdinir [Omnicef] 300 mg PO BID #10 capsule 01/20/20 Furosemide [Lasix] 40 mg PO DAILY #30 tab 01/20/20 Potassium Chloride [K-Dur] 10 meq PO DAILY #30 tab.er.prt 01/20/20 Propranolol [Inderal*] 40 mg PO BID #60 tab 01/20/20 - Past Medical/Surgical History Diabetic: No -: Hypertension -: Hyperlipidemia -: History of pulmonary embolism -: History CVA -: History DVT -: Chronic anti coagulation therapy -: COPD -: tubal ligation -: dvt removal to right leg -: tonsilectomy Psychosocial/ Personal History: Patient is engaged - Family History Father Medical History: Heart disease, Cancer Mother Medical History: Hypertension - Social History Smoking Status: Current every day smoker Alcohol use: No CD- Drugs: No Caffeine use: Yes Place of Residence: Home Review of Systems General: As per HPI Eyes: Unremarkable ENT: Unremarkable Respiratory: Unremarkable Cardiovascular: As per HPI Gastrointestinal: Unremarkable Genitourinary: Unremarkable Musculoskeletal: Unremarkable Integumentary: Unremarkable Neurological: As per HPI Lymphatics: Unremarkable Physical Examination General: Alert, In no apparent distress, Oriented x3, Cooperative HEENT: Atraumatic Neck: Supple Respiratory: Clear to auscultation bilaterally, Normal air movement Cardiovascular: Normal pulses, Regular rate/rhythm Gastrointestinal: Normal bowel sounds, Soft and benign, Non-distended, No tenderness, No masses, No rebound, No guarding Musculoskeletal: No erythema, No tenderness, No warmth Integumentary: No tenderness/swelling, No erythema Neurological: Normal speech, Normal strength at 5/5 x4 extr, Normal tone, Normal affect Laboratory Data (last 24 hrs) 04/14/20 15:10: PT 210.0 H, INR 17.29 H*, APTT 130.0 H* 04/14/20 13:53: Sodium 136, Potassium 3.9, BUN 20 H, Creatinine 1.34 H, Glucose 110 H 04/14/20 13:53: PT 217.8 H, INR 17.93 H*, APTT 133.9 H* 04/14/20 13:53: WBC 9.50, Hgb 12.2, Hct 37.6, Plt Count 368 Conclusions/Impression: Impression: Supratherapeutic INR on Coumadin with history of pulmonary embolism/DVT Hypertension CHF Plan: CT scan head unremarkable. INR was recheck. INR 17. Medications reviewed from home. Patient takes Coumadin 5 mg daily. Other medications include propanolol 40 mg 1 pill twice daily, lisinopril 40 mg daily, Lasix twice daily, potassium supplementation and vitamin-D. No change in her diet noted. No recent antibiotic use. Patient understands INR is elevated. Patient does not desire to stay in the hospital. Recommend vitamin K 2.5 oral at this time. Patient can be discharge from the ER with close follow up by her PCP to recheck INR tomorrow. Patient understands the importance of follow up with her PCP tomorrow. If with increase headaches, dizziness, bleeding, she is to report back to the ER. Otherwise INR can be monitored until it is therapeutic between 2 and 3. Need to consider Coumadin decrease in the near future. Otherwise consider changing to Eliquis or Xarelto. Plan of care discussed with ER provider. Plan of care to be discussed with patient in detail. Time Spent Managing Pts care (In Minutes): 55
[2020-04-14] MEDS ORDERED: VITAMIN K (ADULT) 10 MG/ML ONE (17:08)
--- NOTE | 2020-04-14 17:38 | EDPHYS ---
Physician Documentation [facility] Name: Paola De La Paz Age: 49 yrs Sex: Female : 1970 Arrival Date: 04/14/2020 Time: 10:02 Bed 15 Private MD: Chris Dhillon ED Physician Igor Ontiveros HPI: 04/14 15:21 This 49 yrs old Female presents to ER via Ambulatory with complaints of kb Abnormal Lab Results. 15:21 Pt had blood work on Tuesday at [facility] and was told to come to the ER for kb elevated INR.. Onset: The symptoms/episode began/occurred last week. Severity of symptoms: At their worst the symptoms were moderate severe in the emergency department the symptoms are unchanged. The patient has experienced a previous episode. The patient has been recently seen by a physician:. Pt states she had blood in her mucus when she blew her nose last week. That made her think her INR was probably high so she stopped taking her Coumadin on (last dose ). Had blood work on Tuesday and the clinic called yesterday to tell her she needed to come to the ER for evaluation. Pt states INR was 16 at that time. Denies any bleeding. States she gets dizzy at times. No headache. Normally takes 5mg daily. 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 - Social history:: Smoking status: Patient/guardian denies using tobacco, Stopped _ months ago 3. ROS: 15:14 Constitutional: Negative for fever, chills, and weight loss, Cardiovascular: Negative kb for chest pain, palpitations, and edema, Respiratory: Negative for shortness of breath, cough, wheezing, and pleuritic chest pain, Abdomen/GI: Negative for abdominal pain, nausea, vomiting, diarrhea, and constipation, MS/Extremity: Negative for injury and deformity, Skin: Negative for injury, rash, and discoloration, Neuro: Negative for headache, weakness, numbness, tingling, and seizure. Exam: 15:14 Constitutional: This is a well developed, well nourished patient who is awake, alert, kb and in no acute distress. Head/Face: Normocephalic, atraumatic. Chest/axilla: Normal chest wall appearance and motion. Nontender with no deformity. No lesions are appreciated. Cardiovascular: Regular rate and rhythm with a normal S1 and S2. No gallops, murmurs, or rubs. Normal PMI, no JVD. No pulse deficits. Respiratory: Lungs have equal breath sounds bilaterally, clear to auscultation and percussion. No rales, rhonchi or wheezes noted. No increased work of breathing, no retractions or nasal flaring. Abdomen/GI: Soft, non-tender, with normal bowel sounds. No distension or tympany. No guarding or rebound. No evidence of tenderness throughout. Skin: Warm, dry with normal turgor. Normal color with no rashes, no lesions, and no evidence of cellulitis. MS/ Extremity: Pulses equal, no cyanosis. Neurovascular intact. Full, normal range of motion. Neuro: Awake and alert, GCS 15, oriented to person, place, time, and situation. Cranial nerves II-XII grossly intact. Motor strength 5/5 in all extremities. Sensory grossly intact. Cerebellar exam normal. Normal gait. Vital Signs: 11:08 BP 116 / 55; Pulse 72; Resp 16 S; Temp 98.1; Pulse Ox 99% ; Weight 112.94 kg (R); ca1 Height 5 ft. 7 in. (170.18 cm) (R); Pain 0/10; 16:45 BP 102 / 65; Pulse 65; Resp 17 S; Pulse Ox 100% on R/A; jd3 11:08 Body Mass Index 39.00 (112.94 kg, 170.18 cm) ca1 MDM: 13:37 Patient medically screened. kb 15:10 Data reviewed: vital signs, nurses notes. Data interpreted: Pulse oximetry: on room air kb is 99 %. Interpretation: normal. Physician consultation: Omkar Decker DO was contacted at 15:10, regarding consult, patient's condition, in the emergency department to see patient at 15:10, recommends CT head and repeat coags. . 16:41 Counseling: I had a detailed discussion with the patient and/or guardian regarding: the kb historical points, exam findings, and any diagnostic results supporting the discharge/admit diagnosis, lab results, radiology results, the need for outpatient follow up, a family practitioner, to return to the emergency department if symptoms worsen or persist or if there are any questions or concerns that arise at home. ED course: Pt educated on need for admission for observation and repeat INR levels. Pt does not want to be admitted. States she will follow up with PCP tomorrow for repeat blood work. Pt given return precautions including headache, bleeding, etc. . 04/14 13:42 Order name: CBC with Diff; Complete Time: 14:20 kb 04/14 13:42 Order name: Protime (+inr); Complete Time: 15:02 kb 04/14 13:42 Order name: Ptt, Activated; Complete Time: 15:02 kb 04/14 13:42 Order name: Basic Metabolic Panel; Complete Time: 14:38 kb 04/14 14:54 Order name: Ptt, Activated kb 04/14 14:54 Order name: Protime (+inr) kb 04/14 13:42 Order name: IV Start; Complete Time: 13:54 kb 04/14 15:01 Order name: CT Head Brain wo Cont kb 04/14 15:30 Order name: Protime (+INR); Complete Time: 15:50 EDMS 04/14 15:31 Order name: PTT, Activated Partial Thromb; Complete Time: 15:50 EDMS 04/14 15:31 Order name: Head Brain Wo Cont; Complete Time: 16:23 EDMS Administered Medications: 16:56 Drug: Vitamin K1 5 mg Route: Sub-Q; Site: abdomen; jd3 17:15 Follow up: Response: No adverse reaction jd3 Disposition: 18:19 Co-signature as Attending Physician, Igor Ontiveros MD. ma2 Disposition: 04/14/20 16:44 Discharged to Home. Impression: Supratherapeutic INR. - Condition is Stable. - Discharge Instructions: Therapeutic Drug Monitoring. - Medication Reconciliation Form, Thank You Letter, Antibiotic Education, Prescription Opioid Use form. - Follow up: Emergency Department; When: As needed; Reason: Worsening of condition. Follow up: Private Physician; When: 2 - 3 days; Reason: Recheck today's complaints, Continuance of care, Re-evaluation by your physician. Signatures: Dispatcher [employer] EDKatelyn Stephenson, RUBBER AND PLASTICS WORKER-C RUBBER AND PLASTICS WORKER-CkLarry Mercer, RN RN jd3 Igor Ontiveros MD MD ma2 Gaye Garcia RN RN ca1 Corrections: (The following items were deleted from the chart) 15:31 15:30 CT-HEAD/BRAIN W/O CONTRAST ordered. [facility] EDLA 17:19 16:44 04/14/2020 16:44 Discharged to Home. Impression: Supratherapeutic INR. Condition jd3 is Stable. Forms are Medication Reconciliation Form, Thank You Letter, Antibiotic Education, Prescription Opioid Use. Follow up: Emergency Department; When: As needed; Reason: Worsening of condition. Follow up: Private Physician; When: 2 - 3 days; Reason: Recheck today's complaints, Continuance of care, Re-evaluation by your physician. kb
--- NOTE | 2020-04-14 17:38 | ER ---
Nurse's Notes [facility] Name: Paola De La Paz Age: 49 yrs Sex: Female : 1970 Arrival Date: 04/14/2020 Time: 10:02 Bed 15 Private MD: Chris Dhillon Diagnosis: Supratherapeutic INR Presentation: 04/14 11:08 Chief complaint: Patient states: Had blood works 04/11/2020, they called my yesterday ca1 and was instructed to come to the ER. Blood works done at [facility]. PT 113.5 sec. INR 16.1. Stopped taking Coumadin on . Taking it for HX of blood clots. Reports little blood with sneezing. Coronavirus screen: Client denies travel out of the [place] in the last 14 days. At this time, the client does not indicate any symptoms associated with coronavirus-19. Ebola Screen: Patient negative for fever greater than or equal to 101.5 degrees Fahrenheit, and additional compatible Ebola Virus Disease symptoms Patient denies exposure to infectious person. Patient denies travel to an Ebola-affected area in the 21 days before illness onset. No symptoms or risks identified at this time. Initial Sepsis Screen: Does the patient meet any 2 criteria? No. Patient's initial sepsis screen is negative. Does the patient have a suspected source of infection? No. Patient's initial sepsis screen is negative. Risk Assessment: Do you want to hurt yourself or someone else? Patient reports no desire to harm self or others. Onset of symptoms was April 14, 2020. 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 - Social history:: Smoking status: Patient/guardian denies using tobacco, Stopped _ months ago 3. Screenin:56 Abuse screen: Denies threats or abuse. Nutritional screening: No deficits noted. jd3 Tuberculosis screening: No symptoms or risk factors identified. Fall Risk Ambulatory Aid- None/Bed Rest/Nurse Assist (0 pts). Gait- Normal/Bed Rest/Wheelchair (0 pts) Mental Status- Oriented to own ability (0 pts). Total Ennis Fall Scale indicates No Risk (0-24 pts). Assessment: 13:56 General: Appears in no apparent distress. comfortable, Behavior is calm, cooperative, jd3 appropriate for age. Pain: Denies pain. Neuro: Level of Consciousness is awake, alert, obeys commands, Oriented to person, place, time, situation, Reports off and on dizziness. Cardiovascular: Denies chest pain, Capillary refill < 3 seconds Patient's skin is warm and dry. Respiratory: Airway is patent Respiratory effort is even, unlabored, Respiratory pattern is regular, symmetrical, Denies cough, shortness of breath. GI: No signs and/or symptoms were reported involving the gastrointestinal system. : No signs and/or symptoms were reported regarding the genitourinary system. EENT: No signs and/or symptoms were reported regarding the EENT system. Derm: Skin is intact, Skin is dry, Skin is normal, Skin temperature is warm. Musculoskeletal: No signs and/or symptoms reported regarding the musculoskeletal system. 15:13 Reassessment: Patient appears in no apparent distress at this time. Patient and/or jd3 family updated on plan of care and expected duration. Pain level reassessed. Patient is alert, oriented x 3, equal unlabored respirations, skin warm/dry/pink. 16:46 Reassessment: Patient appears in no apparent distress at this time. No changes from jd3 previously documented assessment. Patient and/or family updated on plan of care and expected duration. Pain level reassessed. Patient is alert, oriented x 3, equal unlabored respirations, skin warm/dry/pink. 17:19 Reassessment: Patient appears in no apparent distress at this time. Patient and/or jd3 family updated on plan of care and expected duration. Pain level reassessed. Patient is alert, oriented x 3, equal unlabored respirations, skin warm/dry/pink. Patient denies pain at this time. Vital Signs: 11:08 BP 116 / 55; Pulse 72; Resp 16 S; Temp 98.1; Pulse Ox 99% ; Weight 112.94 kg (R); ca1 Height 5 ft. 7 in. (170.18 cm) (R); Pain 0/10; 16:45 BP 102 / 65; Pulse 65; Resp 17 S; Pulse Ox 100% on R/A; jd3 11:08 Body Mass Index 39.00 (112.94 kg, 170.18 cm) ca1 ED Course: 10:02 Patient arrived in ED. ag5 10:03 Chris Dhillon MD is Private Physician. ag5 11:11 Triage completed. ca1 11:12 Arm band placed on right wrist. ca1 13:36 Katelyn Rubi FNP-C [facility]. kb 13:36 Igor Ontiveros MD is Attending Physician. kb 13:43 Larry Thakkar, RN is Primary Nurse. jd3 13:55 Patient has correct armband on for positive identification. Bed in low position. Call jd3 light in reach. Side rails up X 1. Pulse ox on. NIBP on. 13:55 Inserted saline lock: 20 gauge in right antecubital area, using aseptic technique. jd3 Blood collected. 16:06 Head Brain Wo Cont In Process Unspecified. EDMS 17:19 No provider procedures requiring assistance completed. IV discontinued, intact, jd3 bleeding controlled, No redness/swelling at site. Pressure dressing applied. Administered Medications: 16:56 Drug: Vitamin K1 5 mg Route: Sub-Q; Site: abdomen; jd3 17:15 Follow up: Response: No adverse reaction jd3 Outcome: 16:44 Discharge ordered by . kb 17:19 Discharged to home ambulatory, with family. jd3 17:19 Condition: stable 17:19 Discharge instructions given to patient, Instructed on discharge instructions, follow up and referral plans. Demonstrated understanding of instructions, follow-up care. 17:19 Patient left the ED. jd3 Signatures: Dispatcher [employer] EDNM Katelyn Rubi FNP-C FNP-Ckb Davies, Jonathon, RN RN jGaye Landaverde RN RN ca1 Vilma Shepherd ag5
[2020-04-14 20:20] VITALS: TEMP 98.1
[2020-04-14 20:24] VITALS: BP 102/65; O2SAT 100
== END 2020-04-14 17:19 | disposition home or self-care (01) ==
LOC: ER 10:00
DX: R79.1 Abnormal coagulation profile (principal); Z79.01 Long term (current) use of anticoagulants; Z88.0 Allergy status to penicillin
CPT/HCPCS: 36415; 70450; 80048; 85025; 85610; 85730; 96372; 99284; J3430

== ENCOUNTER 2024-03-13 12:58 | Inpatient (IN) | payer OTHER ==
[2024-03-13] MEDS ORDERED: FUROSEMIDE 40 MG/4 ML VIAL ONE (13:35)
[2024-03-13 13:44] LABS: Absolute Basophils 0.1 K/uL (0-0.5); Absolute Eosinophils 0.1 K/uL (0-0.5); Absolute Lymphocytes (CBC) 1.8 K/uL (0.7-4.9); Absolute Monocytes 0.4 K/uL (0.1-1.3); Absolute Neutrophil 7.1 K/uL (1.8-8.0); Eosinophils % 1.5 % (0-4.4); Hematocrit 29.3 % (36.0-45.0); Hemoglobin 9.4 g/dL (12.0-15.0); Lymphocytes % 18.7 % (15.3-44.8); MCH 27.2 pg (27.0-35.0); MCHC 32.1 g/dL (32.0-36.0); MCV 84.6 fL (80-100); MPV 8.7 fL (7.6-11.3); Monocytes % 4.7 % (3.3-12.3); Neutrophils % 74.1 % (41.7-73.7); Platelets 261 thou/uL (152-406); RBC Red Blood Cell Count 3.46 M/uL (3.86-4.86); Red Cell Distribution Width 16.5 % (12.1-15.2)
[2024-03-13 13:49] LABS: PT Prothrombin Time 31.1 SECONDS (9.4-12.5); PTT, Activated Partial Thromb 36.6 SECONDS (24.3-36.9); Protime INR 2.86
--- NOTE | 2024-03-13 13:51 | RAD REPORT ---
EXAM: Chest Single View HISTORY: DYSPNEA COMPARISON: 01/18/2020 FINDINGS: LUNGS/PLEURA: The lungs are clear. No pleural effusions or pneumothorax. No pulmonary edema. MEDIASTINUM: Mild prominence of the pulmonary interstitium. CARDIAC: Cardiomegaly. UPPER ABDOMEN: No significant abnormality. BONES: No acute abnormality. LINES/TUBES/OTHER: N/A IMPRESSION: Question mild/early interstitial edema. No consolidative airspace disease.
[2024-03-13 14:03] LABS: Albumin 3.4 g/dL (3.4-5.0); Anion Gap 13.7 mEq/L (5.0-15.0); Bilirubin Total 0.8 mg/dL (0.2-1.0); Globulin 3.3 g/dL (2.3-3.5); Potassium 3.7 mEq/L (3.5-5.1); Protein, Total 6.7 g/dL (6.4-8.2); Troponin High Sensitivity 11.1 pg/mL (<58.9)
--- NOTE | 2024-03-13 14:41 | EDPHYS ---
Physician Documentation [facility] Name: Paola De La Paz Age: 53 yrs Sex: Female : 1970 Arrival Date: 03/13/2024 Time: 12:58 Bed 18 Private MD: ED Physician Anup Rivera HPI: 03/13 13:24 This 53 yrs old Female presents to ER via Ambulatory with complaints of Breathing kb Difficulty. 13:24 Pt is a 53 year old female who presents for shortness of breath that has been ongoing kb for a few months, but worse over the last week. States she ran out of her lasix on 02/26/24 and has been retaining fluid since then. States it is now hard to get in and off of bed due to shortness of breath. Also reports orthopnea. Denies fever. . 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 - Infectious Disease History:: Denies. - Social history:: Smoking status: Patient reports the use of cigarette tobacco products, smokes one-half pack cigarettes per day. ROS: 13:22 Constitutional: As per HPI kb Exam: 13:24 Constitutional: This is a well developed, well nourished patient who is awake, alert, kb and in no acute distress. Head/Face: Normocephalic, atraumatic. ENT: Moist Mucous membranes Cardiovascular: Regular rate Skin: Warm, dry with normal turgor. Normal color. MS/ Extremity: Pulses equal, no cyanosis. Neurovascular intact. Full, normal range of motion. Neuro: Awake and alert, GCS 15, oriented to person, place, time, and situation. 13:24 Cardiovascular: Edema: 3+ edema to level of left foot and right foot, 13:24 Respiratory: Breath sounds: decreased breath sounds, that are mild, are located in both bases, rhonchi, that are mild, are heard in the right middle lobe, right lower lobe, right posterior middle lobe and right posterior lower lobe, 16:11 ECG was reviewed by the Attending Physician. kb Vital Signs: 13:06 BP 131 / 85; Pulse 117; Resp 24; Temp 97.1; Pulse Ox 96% on R/A; ko1 14:00 BP 115 / 82; Pulse 117; Resp 21; Pulse Ox 97% on R/A; me1 15:00 BP 113 / 78; Pulse 118; Resp 24; Pulse Ox 96% on R/A; me1 16:00 BP 121 / 76; Pulse 121; Resp 20; Pulse Ox 97% on R/A; me1 17:00 BP 117 / 92; Pulse 122; Resp 22; Pulse Ox 96% on R/A; me1 18:00 BP 131 / 92; Pulse 121; Resp 18; Pulse Ox 97% on R/A; me1 19:00 BP 131 / 92; Pulse 121; Resp 18; Temp 98.4; Pulse Ox 97% ; me1 MDM: 13:05 Medical Screening Exam initiated kb 13:24 Data reviewed: vital signs, nurses notes. kb 13:29 Historians other than the Patient: Parent: mother. kb 14:39 Differential diagnosis: CHF exacerbation, Chronic Obstructive Pulmonary Disease kb pulmonary edema, Pulmonary Embolism. Consideration of Admission/Observation Patient was admitted/placed on observation. Escalation of care including admission/observation considered. Counseling: I had a detailed discussion with the patient and/or guardian regarding the historical points, exam findings, and any diagnostic results supporting the discharge/admit diagnosis, lab results, radiology results, the need for further work-up and treatment in the hospital. 14:40 Management of patient was discussed with the following: Hospitalist: Hospitalist team, pt accepted for admission under Dr Chao. 03/13 13:13 Order name: Blood Culture Adult (2) 03/13 13:13 Order name: CBC with Diff; Complete Time: 13:46 kb 03/13 13:13 Order name: CMP; Complete Time: 14:15 kb 03/13 13:13 Order name: Lactate w/ 2H reflex if indic.; Complete Time: 14:15 kb 03/13 13:13 Order name: Protime (+inr); Complete Time: 13:49 kb 03/13 13:13 Order name: Ptt, Activated; Complete Time: 13:49 kb 03/13 13:13 Order name: BNP; Complete Time: 14:15 kb 03/13 13:13 Order name: Troponin High Sensitivity; Complete Time: 14:15 kb 03/13 17:21 Order name: CBC with Automated Diff EDFL 03/13 17:21 Order name: CBC with Automated Diff EDFL 03/13 17:21 Order name: Comprehensive Metabolic Panel EDFL 03/13 17:21 Order name: Comprehensive Metabolic Panel [facility] 03/13 17:21 Order name: Protime (+INR) EDFL 03/13 17:21 Order name: Protime (+INR) EDFL 03/13 17:21 Order name: Protime (+INR) [facility] 03/13 17:21 Order name: Protime (+INR) [facility] 03/13 13:13 Order name: Chest Single View XRAY; Complete Time: 13:52 kb 03/13 15:56 Order name: Echo w/ Doppler 03/13 15:57 Order name: US Extremity Venous W Compression Tarik; Complete Time: 17:03 kb 03/13 13:13 Order name: Accucheck; Complete Time: 17:15 kb 03/13 13:13 Order name: Cardiac monitoring; Complete Time: 13:51 kb 03/13 13:13 Order name: EKG - Nurse/Tech; Complete Time: 13:51 kb 03/13 13:13 Order name: IV Saline Lock - Large Bore; Complete Time: 13:33 kb 03/13 13:13 Order name: Labs collected and sent; Complete Time: 13:33 kb 03/13 13:13 Order name: O2 Per Protocol; Complete Time: 13:33 kb 03/13 13:13 Order name: O2 Sat Monitoring; Complete Time: 13:33 kb 03/13 13:13 Order name: Vital Signs; Complete Time: 13:33 kb EC:11 Rate is 118 beats/min. Rhythm is regular. QRS [place] is Normal. QRS interval is normal at kb 96 msec. QT interval is normal at 274 msec. Administered Medications: 13:51 Drug: Furosemide IVP 40 mg IVP once; give over 2 minutes Route: IVP; Site: right me1 antecubital; 16:47 Follow up: Response: No adverse reaction me1 Disposition Summary: 03/13/24 14:40 Hospitalization Ordered Notes: Hospitalization Status: Observation kb Provider: Sarah Chao Location: Telemetry/MedSurg (observation) kb Condition: Stable kb Problem: new kb Symptoms: are unchanged kb Bed/Room Type: Standard Room Assignment: 221(03/13/24 18:52) bc6 Diagnosis - Unspecified combined systolic (congestive) and diastolic (congestive) heart failure kb - Dyspnea kb Forms: - Medication Reconciliation Form kb - SBAR form kb - Leadership Thank You Letter kb Addendum: 03/20/2024 06:59 Co-signature as Attending Physician, Anup Rivera MD I reviewed the patient's care r n provided by the Advanced Practice Provider and agree with the diagnosis and treatment plan. Signatures: Dispatcher [employer] EDMS Katelyn Rubi, SHEET METAL FABRICATOR-C SHEET METAL FABRICATOR-Ckb Anup Rivera MD MD rn Oliver, Kathy RN RN ko1 IsaiasradhaTanvi bc6 Dilma Chavez RN RN me1 Corrections: (The following items were deleted from the chart) 03/13 13:09 13:07 PMHx: CVA; ko1 ko1 13:14 13:14 BLOOD CULTURE*+BA.LAB.BRZ ordered. EDMS EDMS 13:14 13:14 CBC+H.LAB.BRZ ordered. EDMS EDMS 13:14 13:14 COMPREHENSIVE METABOLIC PANEL+C.LAB.BRZ ordered. EDMS EDMS 13:14 13:14 LACTATE+C.LAB.BRZ ordered. EDMS EDMS 13:14 13:14 PROTIME (+INR)+COAG.LAB.BRZ ordered. EDMS EDMS 13:14 13:14 PTT, ACTIVATED+COAG.LAB.BRZ ordered. EDMS EDMS 13:14 13:14 PROBNP+C.LAB.BRZ ordered. EDMS EDMS 13:14 13:14 Troponin High Sensitivity+C.LAB.BRZ ordered. EDMS EDMS 13:14 13:14 Chest Single View+RAD.RAD.BRZ ordered. EDMS EDMS 18:52 14:40 kb bc6
--- NOTE | 2024-03-13 14:41 | ER ---
Nurse's Notes [facility] Name: Paola De La Paz Age: 53 yrs Sex: Female : 1970 Arrival Date: 03/13/2024 Time: 12:58 Bed 18 Private MD: Diagnosis: Unspecified combined systolic (congestive) and diastolic (congestive) heart failure;Dyspnea Presentation: 03/13 13:06 Chief complaint: Patient states: short of breath, retaining fluid since the , out ko1 of "fluid pills" due to clinic not refilling. Coronavirus screen: At this time, the client does not indicate any symptoms associated with coronavirus-19. Ebola Screen: No symptoms or risks identified at this time. Initial Sepsis Screen: Does the patient meet any 2 criteria? No. Patient's initial sepsis screen is negative. Does the patient have a suspected source of infection? No. Patient's initial sepsis screen is negative. Risk Assessment: Do you want to hurt yourself or someone else? Patient reports no desire to harm self or others. Onset of symptoms is unknown. 13:06 Method Of Arrival: Ambulatory ko1 13:06 Acuity: WILLIAM 3 ko1 Triage Assessment: 13:07 General: Appears uncomfortable, obese, Behavior is calm, cooperative, appropriate for ko1 age. Pain: Complains of pain in right leg and left leg. Respiratory: Reports shortness of breath at rest labored breathing Onset: The symptoms/episode began/occurred gradually, the patient has moderate shortness of breath. 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 - Infectious Disease History:: Denies. - Social history:: Smoking status: Patient reports the use of cigarette tobacco products, smokes one-half pack cigarettes per day. Screenin:15 [facility] ED Fall Risk Assessment (Adult) History of falling in the last 3 months, me1 including since admission No falls in past 3 months (0 pts) Confusion or Disorientation No (0 pts) Intoxicated or Sedated No (0 pts) Impaired Gait No (0 pts) Mobility Assist Device Used No (0 pt) Altered Elimination No (0 pt) Score/Fall Risk Level 0 - 2 = Low Risk Maintained a safe environment, Provided non-skid footwear, Hourly rounding (assess needs \\T\\ fall precautionary measures) done. Abuse screen: Denies threats or abuse. Nutritional screening: No deficits noted. Tuberculosis screening: No symptoms or risk factors identified. Assessment: 13:15 General: Appears uncomfortable, obese, well groomed, well developed, Behavior is me1 cooperative, appropriate for age, anxious, Reports short of breath, retaining fluid since the , out of "fluid pills" due to clinic not refilling. Pain: Complains of pain in right foot and left foot and left leg and right leg Pain does not radiate. Pain currently is 4 out of 10 on a pain scale. Quality of pain is described as aching, Pain began gradually, Is continuous. Neuro: Level of Consciousness is awake, alert, obeys commands, Oriented to person, place, time, situation, Appropriate for age. Cardiovascular: Reports shortness of breath, Rhythm is atrial flutter 2:1. Respiratory: Airway is patent Respiratory effort is labored, Respiratory pattern is symmetrical, tachypnea Breath sounds with crackles bilaterally. GI: No signs and/or symptoms were reported involving the gastrointestinal system. : No signs and/or symptoms were reported regarding the genitourinary system. EENT: No signs and/or symptoms were reported regarding the EENT system. Derm: Skin is intact, is healthy with good turgor, Skin is pink, warm \\T\\ dry. normal. Musculoskeletal: Swelling present in right foot and left foot and left leg and right leg. Vital Signs: 13:06 BP 131 / 85; Pulse 117; Resp 24; Temp 97.1; Pulse Ox 96% on R/A; ko1 14:00 BP 115 / 82; Pulse 117; Resp 21; Pulse Ox 97% on R/A; me1 15:00 BP 113 / 78; Pulse 118; Resp 24; Pulse Ox 96% on R/A; me1 16:00 BP 121 / 76; Pulse 121; Resp 20; Pulse Ox 97% on R/A; me1 17:00 BP 117 / 92; Pulse 122; Resp 22; Pulse Ox 96% on R/A; me1 18:00 BP 131 / 92; Pulse 121; Resp 18; Pulse Ox 97% on R/A; me1 19:00 BP 131 / 92; Pulse 121; Resp 18; Temp 98.4; Pulse Ox 97% ; me1 ED Course: 13:05 Patient arrived in ED. im 13:05 Katelyn Rubi F[facility]-C [facility]. kb 13:05 Anup Rivera MD is Attending Physician. kb 13:07 Triage completed. ko1 13:10 Arm band placed on right wrist. Patient placed in an exam room, on a stretcher, on ko1 complaint evaluation supervisor, on pulse oximetry, Patient notified of wait time. 13:14 Dilma Chavez, RN is Primary Nurse. me1 13:15 Patient has correct armband on for positive identification. Bed in low position. Call me1 light in reach. Side rails up X2. Provided Education on: POC. Verbalized understanding.. Client placed on continuous cardiac and pulse oximetry monitoring. NIBP monitoring applied. store team leader on. Pulse ox on. NIBP on. 13:15 Warm blanket given. me1 13:15 No provider procedures requiring assistance completed. me1 13:28 Initial lab(s) drawn, by me, sent to lab. First set of blood cultures drawn by me. me1 13:32 Inserted saline lock: 22 gauge in right antecubital area, using aseptic technique. me1 13:33 Troponin High Sensitivity Sent. me1 13:33 BNP Sent. me1 13:33 Blood Culture Adult (2) Sent. me1 13:33 CBC with Diff Sent. me1 13:33 CMP Sent. me1 13:33 Lactate w/ 2H reflex if indic. Sent. me1 13:33 Protime (+inr) Sent. me1 13:33 Ptt, Activated Sent. me1 13:41 Second set of blood cultures drawn by me, EKG done, by ED staff, reviewed by Katelyn STYLES. 13:43 Chest Single View XRAY In Process Unspecified. EDMS 14:39 Sarah Chao is Hospitalizing Provider. kb 16:49 US Extremity Venous W Compression Tarik In Process Unspecified. EDMS 19:10 Patient admitted, IV remains in place. me1 Administered Medications: 13:51 Drug: Furosemide IVP 40 mg IVP once; give over 2 minutes Route: IVP; Site: right me1 antecubital; 16:47 Follow up: Response: No adverse reaction me1 Medication: 13:15 VIS not applicable for this client. me1 Outcome: 14:40 Decision to Hospitalize by Provider. kb 19:10 Admitted to Med/surg accompanied by tech, via wheelchair, room 221, with chart, Report me1 called to faxed, receipt confirmed with Paola 19:10 Condition: stable 19:10 Instructed on the need for admit, 19:51 Patient left the ED. cp4 Signatures: Dispatcher [employer] EDKatelyn Stephenson, SHAQUILLE-C CONCRETE BLOCK MAKER-Lauren Santos, RN RN ko1 Nelsy Beaulieu Michelle, RN RN me1 Johanny Muñoz cp4 Corrections: (The following items were deleted from the chart) 13:09 13:07 PMHx: CVA; ko1 ko1 16:44 13:06 Chief complaint: Patient states: short of breath, retaining fluid since the , me1 out of "fluid pills" due to clinic not refilling. ko1
--- NOTE | 2024-03-13 16:37 | P.HP ---
Certification for Inpatient Patient admitted to: Inpatient With expected LOS: >2 Midnights Patient will require the following post-hospital care: None Practitioner: I am a practitioner with admitting privileges, knowledge of patient current condition, hospital course, and medical plan of care. Services: Services provided to patient in accordance with Admission requirements found in Title 42 Section 412.3 of the Code of Federal Regulations Patient History Date of Service: 03/13/24 Reason for admission: Acute respiratory fail 2nd to HFpEF, a. flutter History of Present Illness: Ms. De La Paz is a 53-year-old female with a past medical history of hypertension, CHF, tobacco abuse, DVT, PE, TIA , and CKD stage IV who presents to the emergency department with significant shortness of breath and lower extremity edema. She states she sees a provider at [facility] and has not been able to get her "fluid pills" filled for 16 days. When she was diagnosed with a PE, she was placed on Coumadin for a while but has not taken blood thinners for 2 to 3 years. Last month she was diagnosed with a flutter and Coumadin 7.5 mg p.o. daily was resumed. She was prescribed flecainide 50 mg p.o. twice daily, carvedilol 12.5 mg twice daily, Lasix 40 mg twice daily, sodium bicarb 650 mg 3 times daily, sertraline 100 mg p.o. twice daily, and propranolol 20 mg p.o. twice daily. She states she was also prescribed hydralazine 25 mg p.o. 3 times daily but refuses to take it as it causes her to legs to swell and gives her palpitations and chest pain. She does have essential tremor and has tried primidone but refuses medication as "it does not work". She will be admitted for diuresis and readjustment of her medications. Allergies iodine Allergy (Verified 08/29/13 14:40) Unknown Penicillins Allergy (Verified 01/15/20 22:36) UNK Home medications list reviewed: Yes Home Medications: Sertraline [Zoloft*] 1 tab PO DAILY 11/17/16 Zolpidem Tartrate [Ambien] 1 tab PO BEDTIME 11/17/16 Fluticasone Propion/Salmeterol [Airduo Respiclick 113-14 Mcg] 1 each IH BID 30 Days #1 aer.pow.[email or web address] 12/31/19 Warfarin Sodium 10 mg PO BEDTIME 30 Days #30 tablet 12/31/19 Budesonide/Formoterol Fumarate [Symbicort 160-4.5 Mcg Inhaler] 1 puff IH BID 01/15/20 Guaifen W/Codeine Syrup [ROBITUSSIN A-C Syrup*] 10 ml PO Q12HP PRN #100 ml 01/18/20 Mometasone/Formoterol [Dulera 200 Mcg/5 Mcg Inhaler] 2 puff IH BID #1 inhaler 01/18/20 predniSONE [Prednisone] 20 mg PO BID #30 tablet 01/18/20 Cefdinir [Omnicef] 300 mg PO BID #10 capsule 01/20/20 Furosemide [Lasix] 40 mg PO DAILY #30 tab 01/20/20 Potassium Chloride [K-Dur] 10 meq PO DAILY #30 tab.er.prt 01/20/20 Propranolol [Inderal*] 40 mg PO BID #60 tab 01/20/20 - Past Medical/Surgical History Diabetic: No -: Hypertension -: Hyperlipidemia -: History of pulmonary embolism -: History CVA -: History DVT -: Chronic anti coagulation therapy -: COPD -: tubal ligation -: dvt removal to right leg -: tonsilectomy Psychosocial/ Personal History: Patient is engaged. No home O2. states she used to see [facility] of [place] but will not return - Family History Father -: Heart disease, Cancer Mother -: Hypertension - Social History Smoking Status: Current every day smoker Alcohol use: No CD- Drugs: No Caffeine use: Yes Place of Residence: Home Review of Systems 10-point ROS is otherwise unremarkable General: Malaise, Other (essential tremor) Eyes: Unremarkable ENT: Unremarkable Respiratory: Shortness of Breath, SOB with Excertion, As per HPI Cardiovascular: Palpitations Gastrointestinal: Distention Genitourinary: Unremarkable Musculoskeletal: Unremarkable Integumentary: Unremarkable Neurological: Unremarkable Lymphatics: Unremarkable Physical Examination - Vital Signs Blood Pressure: 124/89 Pulse: 120 Respirations: 19 Pulse Ox (%): 94 - Physical Exam General: Alert, In no apparent distress, Oriented x3, Other (Short of breath at rest) HEENT: Atraumatic, Normocephalic Neck: Supple Respiratory: Diminished Cardiovascular: Regular rate/rhythm, Edema Capillary refill: <2 Seconds Gastrointestinal: Normal bowel sounds (tight) Musculoskeletal: No clubbing Integumentary: Other (severe, tight edema from toes proximally to abdomen) Neurological: Normal speech, Normal tone, Sensation intact, Normal affect Lymphatics: No axilla or inguinal lymphadenopathy External genitalia: Deferred Rectal: Deferred - Studies Laboratory Data (last 24 hrs) 03/13/24 03/13/24 03/13/24 13:28 13:28 13:28 WBC 9.60 Hgb 9.4 L Hct 29.3 L Plt Count 261 PT 31.1 H INR 2.86 APTT 36.6 Sodium 132 L Potassium 3.7 BUN 38 H Creatinine 2.26 H Glucose 122 H Total Bilirubin 0.8 AST 52 H ALT 62 H Alkaline Phosphatase 180 H Assessment and Plan - Plan Respiratory failure secondary to acute exacerbation of heart failure with preserved ejection fraction (stated 60%) A flutter recently restarted on chronic anticoagulation CKD IV with YONATAN History of DVT, PE, TIA secondary to above Tobacco abuse with COPD Anticoagulation -Coumadin 7-1/2 mg p.o. daily, monitor INR Doppler lower extremities Echocardiogram Continue carvedilol,, flecainide Hold amlodipine secondary to lower extremity edema Continue Symbicort Albuterol nebs as needed Monitor oxygen close; O2 per protocol Diuresis with monitoring of renal function - lasix drip Strict I&O Daily weight GI prophylaxis Discharge Plan: Home Plan to discharge in: Greater than 2 days - Advance Directives Does patient have a Living Will: No Does patient have a Durable POA for Healthcare: No - Code Status/Comfort Care Code Status Assessed: Yes Critical Care: No
--- NOTE | 2024-03-13 16:59 | RAD REPORT ---
EXAMINATION: US bilateral LOWER EXTREMITY VENOUS DOPPLER CLINICAL INDICATION: Leg swelling TECHNIQUE: Sonographic evaluation of the veins of the lower extremity bilaterally formed.Grayscale, c olor and spectral analysis performed on all vessels COMPARISON: 2017 FINDINGS: The common femoral, superficial femoral, greater saphenous popliteal,and posterior tibial veins bilat erally are compressible and demonstrate augmentation. Doppler demonstrates good flow. IMPRESSION: No evidence of acute deep venous thrombosis involving either lower extremity
[2024-03-13] MEDS ORDERED: ACETAMINOPHEN 500 MG TAB PO PRN (17:15)
[2024-03-13] MEDS ORDERED: MAGNESIUM HYDROXIDE 8% 30 ML PO PRN (17:15)
[2024-03-13] MEDS ORDERED: ALBUTEROL 2.5 MG/3 ML NEB SOL NEB PRN (17:15)
[2024-03-13] MEDS ORDERED: ONDANSETRON 4 MG/2 ML VIAL IV PRN (17:15)
[2024-03-13] MEDS ORDERED: FUROSEMIDE 100 MG in NA CHLORIDE 0.9% 90 ML IV SCH (18:00)
[2024-03-13 22:00] VITALS: BMI 36.6
[2024-03-13] MEDS: SODIUM BICARB 325 MG TAB PO SCH (22:36)
[2024-03-13] MEDS: FLECAINIDE 100 MG TAB PO SCH (22:36)
[2024-03-13] MEDS ORDERED: NA CHLORIDE 0.9% 100 ML ONE (22:54)
[2024-03-13] MEDS: METOPROLOL TAR 25 MG TAB PO SCH (23:07)
[2024-03-13] MEDS: FUROSEMIDE 100 MG/10 ML VIAL IV ONE (23:07)
[2024-03-14 03:39] LABS: Magnesium 2.1 mg/dL (1.6-2.4); Potassium 3.4 mEq/L (3.5-5.1)
[2024-03-14] MEDS ORDERED: METOPROLOL TARTRATE 5 MG/5 ML INJ IV PRN (04:33)
[2024-03-14 04:42] LABS: PT Prothrombin Time 28.7 SECONDS (9.4-12.5); Protime INR 2.64
[2024-03-14 04:51] LABS: Absolute Basophils 0.1 K/uL (0-0.5); Absolute Eosinophils 0.2 K/uL (0-0.5); Absolute Lymphocytes (CBC) 2.1 K/uL (0.7-4.9); Absolute Monocytes 0.8 K/uL (0.1-1.3); Absolute Neutrophil 6.7 K/uL (1.8-8.0); Eosinophils % 2.2 % (0-4.4); Hematocrit 30.6 % (36.0-45.0); Hemoglobin 10.2 g/dL (12.0-15.0); MCH 27.9 pg (27.0-35.0); MCHC 33.3 g/dL (32.0-36.0); MCV 83.8 fL (80-100); MPV 8.4 fL (7.6-11.3); Neutrophils % 67.8 % (41.7-73.7); Nucleated Red Blood Cells % 0.1 % (0-0); Platelets 273 thou/uL (152-406); RBC Red Blood Cell Count 3.65 M/uL (3.86-4.86); Red Cell Distribution Width 16.6 % (12.1-15.2)
[2024-03-14 05:02] LABS: Albumin 3.4 g/dL (3.4-5.0); Albumin/Globulin Ratio 1.1 (1.1-1.8); Anion Gap 4.7 mEq/L (5.0-15.0); Bilirubin Total 0.7 mg/dL (0.2-1.0); Globulin 3.2 g/dL (2.3-3.5); Potassium 3.7 mEq/L (3.5-5.1); Protein, Total 6.6 g/dL (6.4-8.2)
[2024-03-14] MEDS: SERTRALINE HCL 100 MG TAB PO SCH (09:14)
[2024-03-14] MEDS ORDERED: ALBUTEROL 2.5 MG/3 ML NEB SOL NEB PRN (09:14)
[2024-03-14] MEDS: POTASSIUM CL SA 10 MEQ TAB PO ONE (09:15)
[2024-03-14] MEDS: FUROSEMIDE 100 MG in NA CHLORIDE 0.9% 90 ML IV SCH (09:32)
--- NOTE | 2024-03-14 10:08 | P.PN ---
Subjective Date of Service: 03/14/24 Chief Complaint: Acute respiratory fail 2nd to HFpEF, a. flutter Subjective: No new changes She states that she is feeling a little better after a lateral rotation on furosemide infusion. Patient said metoprolol is not working for her, which she claims to be increasing heart rate or drop the blood pressure. She is following with her bank runner in regard to renal replacement therapy. Review of Systems Other: Consitutional; fever(-), chills (-), rigor(-), night sweat(-), unintentional weight loss(-), malaise (-) HEENT; diplopia (-), rhinorrhea (-), epistaxis (-), otorrhea (-), otalgia (-) Respiratory; shortness of breath (+), wheezing (-), cough (+), sputum (-), pleuritic chest pain (-) Cardiovascular; chest pain (-), peripheral edema (+), paroxysmal nocturnal dyspnea (-), orthopnea (-) palpitation(+) Gastrointestinal; nausea (-), vomiting (-), abdominal pain (-), diarrhea (-), constipation (-), melena (-), hematochezia (-) Genitourinary; urinary frequency (-), dysuria (-), urgency (-), flank pain (-), gross hematuria (-), incontinence (-) Skin; rash (-), pruritus (-) 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 General: Obese, not acutely ill looking, in no apparent distress,. HEENT: Normocephalic, atraumatic, nonicteric sclera, nonanemic conjunctive. Neck: Supple, without JVD or goiter or thyroid mass. Respiratory: Coarse breath sound with a crackle one third up from lung bases no wheezing or rhonchi. Cardiovascular: Irregular rapid heart rate , no murmur no gallop. Gastrointestinal: Normal bowel sounds, nondistended, nontender, No ascites, , No masses, no hepatosplenomegaly. Extremities : No clubbing, +3 /+ 3 peripheral edema, full range of motion, no deformity, no muscle atrophy. Integumentary: No rashes, petechia, suspected lesions. Lymphatics: No axilla or cervical lymphadenopathy. Neurology; alert awake oriented x3, no focal neurologic deficit, normal affection . mood and behavior. - Studies Laboratory Data (last 24 hrs) 03/13/24 03/13/24 03/13/24 13:28 13:28 13:28 WBC 9.60 Hgb 9.4 L Hct 29.3 L Plt Count 261 PT 31.1 H INR 2.86 APTT 36.6 Sodium 132 L Potassium 3.7 BUN 38 H Creatinine 2.26 H Glucose 122 H Total Bilirubin 0.8 AST 52 H ALT 62 H Alkaline Phosphatase 180 H Assessment And Plan - Plan Ms. De La Paz is a 53-year-old female with a past medical history of hypertension, CHF, tobacco abuse, DVT, PE, TIA , and CKD stage IV, atrial flutter on flecainide and Coumadin who presents to the emergency department with significant shortness of breath and lower extremity edema. She states she sees a provider at [facility] and has not been able to get her "fluid pills" filled for 16 days. She was found to have volume overload with severe peripheral edema and pulmonary edema on chest x-ray, atrial flutter with rapid ventricular response #1 hypervolemia with pulmonary edema and severe peripheral edema Seems to responding to furosemide infusion at 10 mg/h, I will add 12.5 mg metolazone. Check follow-up BMP tomorrow morning, monitor input and output No DVT by duplex ultrasound of both lower extremities #2 atrial flutter with rapid ventricular response on Coumadin #3 acute decompensated heart failure with presumed normal ejection fraction Heart rate is not at target, telemetry reviewed, atrial flutter in the heart rate in the range of 120, will continue flecainide 50 mg twice daily and change metoprolol to carvedilol 12.5 mg twice daily INR of 2.64 in therapeutic range, will continue 7.5 mg Coumadin once a day #4 nondialysis dependent CKD stage IV BUN/creatinine 44/2.2, normokalemia, continue on sodium bicarb, continuous furosemide infusion #5 anemia of CKD Hemoglobin stable around 10.2, no clinical bleeding, no transfusion indicated DVT prophylaxis Coumadin Disposition; plan to discharge home in a few days
[2024-03-14] MEDS: FLU (Fluarix Triv) TS24-25(6MOS UP)/PF 45 MCG/0.5 ML Syringe IM ONE (10:15)
[2024-03-14] MEDS: carvediloL 6.25 MG TAB PO SCH (11:52)
[2024-03-14] MEDS: WARFARIN SODIUM 7.5 MG TAB PO SCH (16:31)
[2024-03-15 07:15] LABS: PT Prothrombin Time 27.1 SECONDS (9.4-12.5); Protime INR 2.48
[2024-03-15 07:27] LABS: Anion Gap 10.4 mEq/L (5.0-15.0); Potassium 3.4 mEq/L (3.5-5.1)
[2024-03-15] MEDS: METOLAZONE 2.5 MG TABLET PO SCH (09:38)
[2024-03-15] MEDS: ACETAMINOPHEN 325 MG TABLET PO PRN (09:43)
[2024-03-15] MEDS: FLECAINIDE 100 MG TAB PO ONE (10:15)
--- NOTE | 2024-03-15 11:12 | P.CNS ---
Date of Consult: 03/15/24 Chief Complaint: Acute respiratory fail 2nd to HFpEF, a. flutter History of Present Illness: Patient with PMH of atrial fibrillation, Heart failure, presented with worsening SOB, CEJA, palpitations and lower extremities swelling, denies chest pain, no syncope, she has been out of her lasix for almost 2 weeks. Allergies iodine Allergy (Verified 08/29/13 14:40) Unknown Penicillins Allergy (Verified 01/15/20 22:36) UNK Home medications list reviewed: Yes Home Medications: Sertraline [Zoloft*] 100 mg PO BID 11/17/16 Budesonide/Formoterol Fumarate [Symbicort 160-4.5 Mcg Inhaler] 1 puff IH BID 01/15/20 Amlodipine [Norvasc] 10 mg PO DAILY 03/13/24 Carvedilol [Coreg] 12.5 mg PO BID 03/13/24 Flecainide [Tambocor] 50 mg PO BID 03/13/24 Furosemide [Lasix] 40 mg PO BID 03/13/24 Propranolol [Inderal] 20 mg PO BID 03/13/24 Sodium Bicarbonate 650 mg PO TID 03/13/24 Warfarin Sodium 7.5 mg PO BEDTIME 03/13/24 - Past Medical/Surgical History Diabetic: No -: Hypertension -: Hyperlipidemia -: History of pulmonary embolism -: History CVA -: History DVT -: Chronic anti coagulation therapy -: COPD -: tubal ligation -: dvt removal to right leg -: tonsilectomy Psychosocial/ Personal History: Patient is engaged. No home O2. states she used to see [facility] of [place] but will not return - Family History Father Medical History: Heart disease, Cancer Mother Medical History: Hypertension - Social History Smoking Status: Current every day smoker Alcohol use: No CD- Drugs: No Caffeine use: Yes Place of Residence: Home Review of Systems 10-point ROS is otherwise unremarkable Physical Examination Temp Pulse Resp BP Pulse Ox 98 F 131 H 16 135/80 91 03/15/24 08:00 03/15/24 09:39 03/15/24 08:00 03/15/24 09:39 03/15/24 08:00 General: Alert, In no apparent distress HEENT: Atraumatic, PERRLA, Mucous membr. moist/pink, EOMI, Sclerae nonicteric Neck: Supple, 2+ carotid pulse no bruit, No LAD, Without JVD or thyroid abnormality Respiratory: Diminished, Crackles/rales Cardiovascular: Edema, Irregular heart rate/rhythm Gastrointestinal: Normal bowel sounds, No tenderness Musculoskeletal: No tenderness Integumentary: No rashes Neurological: Normal gait, Normal speech, Normal tone, Normal affect Lymphatics: No axilla or inguinal lymphadenopathy - Problems (1) Atrial fibrillation Current Visit: Yes Status: Acute Plan: Patient tele shows she is in AF, rate 120s increase Flecanide to 100 mg po BID continue coumadin, INR is 2.4 NPO after midnight for HANSEL DCCV in am (2) Acute exacerbation of CHF (congestive heart failure) Current Visit: No Status: Acute Plan: patient with +1 BLE, continue lasix drip, may switch to 40 mg IV BID in am continue Metolazone continue Coreg
--- NOTE | 2024-03-15 12:25 | P.PN ---
Subjective Date of Service: 03/15/24 Chief Complaint: Acute respiratory fail 2nd to HFpEF, a. flutter Subjective: No new changes She complained of persistent palpitation, shortness of breath and peripheral edema slowly improving with IV furosemide infusion, denied abdominal chest pain or dizziness. Patient states that she did not get her morning dose of her medication yet. Review of Systems Other: Consitutional; fever(-), chills (-), rigor(-), night sweat(-), unintentional weight loss(-), malaise (-) HEENT; diplopia (-), rhinorrhea (-), epistaxis (-), otorrhea (-), otalgia (-) Respiratory; shortness of breath (-), wheezing (-), cough (+), sputum (+), pleuritic chest pain (-) Cardiovascular; chest pain (-), peripheral edema (+), paroxysmal nocturnal dyspnea (-), orthopnea (-), palpitation(+) Gastrointestinal; nausea (-), vomiting (-), abdominal pain (-), diarrhea (-), constipation (-), melena (-), hematochezia (-) Genitourinary; urinary frequency (-), dysuria (-), urgency (-), flank pain (-), gross hematuria (-), incontinence (-) Skin; rash (-), pruritus (-) 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 General: Obese, not acutely ill looking, in no apparent distress,. HEENT: Normocephalic, atraumatic, nonict owen sclera, nonanemic conjunctive. Neck: Supple, without JVD or goiter or thyroid mass. Respiratory: Coarse breath sound with a crackle at both lung bases no wheezing or rhonchi. Cardiovascular: Irregular rapid heart rate , no murmur no gallop. Gastrointestinal: Normal bowel sounds, nondistended, nontender, No ascites, , No masses, no hepatosplenomegaly. Extremities : No clubbing, +3 /+ 3 peripheral edema, full range of motion, no deformity, no muscle atrophy. Integumentary: No rashes, petechia, suspected lesions. Lymphatics: No axilla or cervical lymphadenopathy. Neurology; alert awake oriented x3, no focal neurologic deficit, normal affection . mood and behavior. Assessment And Plan - Plan Ms. De La Paz is a 53-year-old female with a past medical history of hypertension, CHF, tobacco abuse, DVT, PE, TIA , and CKD stage IV, atrial flutter on flecainide and Coumadin who presents to the emergency department with significant shortness of breath and lower extremity edema. She states she sees a provider at [facility] and has not been able to get her "fluid pills" filled for 16 days. She was found to have volume overload with severe peripheral edema and pulmonary edema on chest x-ray, atrial flutter with rapid ventricular response #1 hypervolemia with pulmonary edema and severe peripheral edema Slowly responding to furosemide infusion at 10 mg/h with 12.5 mg metolazone. No DVT by duplex ultrasound of both lower extremities #2 atrial flutter with rapid ventricular response on Coumadin #3 acute decompensated heart failure with presumed normal ejection fraction Heart rate is not at target, telemetry reviewed, atrial flutter in the heart rate in the range of 120-130, cardiology consult note appreciated, flecainide titrate up to 100 mg twice daily, planning on elective cardioversion tomorrow morning , keep on carvedilol 12.5 mg twice daily INR of 2.64 in therapeutic range, will continue 7.5 mg Coumadin once a day #4 nondialysis dependent CKD stage IV BUN/creatinine stable 44/2.2, normokalemia, continue on sodium bicarb, continuous furosemide infusion #5 anemia of CKD Hemoglobin stable around 10.2, no clinical bleeding, no transfusion indicated DVT prophylaxis Coumadin Disposition; plan to discharge home in a few days
[2024-03-15] MEDS: POTASSIUM 25 MEQ EFFERV TAB PO ONE (12:51)
[2024-03-15] MEDS: NICOTINE 21 MG/PAT TD SCH (16:14)
[2024-03-15] MEDS: FLECAINIDE 100 MG TAB PO SCH (20:40)
[2024-03-16 04:30] LABS: PT Prothrombin Time 26.3 SECONDS (9.4-12.5); Protime INR 2.41
[2024-03-16] MEDS: NA CHLORIDE 0.9% 500 ML ONE (08:02)
[2024-03-16] MEDS ORDERED: propofoL 200 MG/20 ML VIAL IV ONE (08:20)
[2024-03-16] MEDS ORDERED: LIDOCAINE 1% MPF 5 ML VIAL ONE (08:20)
--- NOTE | 2024-03-16 11:35 | P.PN ---
Subjective Date of Service: 03/16/24 Chief Complaint: Acute respiratory fail 2nd to HFpEF, a. flutter Subjective: No new changes Her telemetry reviewed are still in atrial flutter with a heart rate of 120- 130/min in spite of flecainide and carvedilol, normotensive, her shortness of breath and peripheral edema continued to decrease on furosemide infusion. She is scheduled for DC cardioversion with HANSEL today. Physical Examination - Vital Signs Temperature: 97.8 F Blood Pressure: 130/58 Pulse: 92 Respirations: 16 Pulse Ox (%): 96 - Physical Exam Other Physical/Emotional Findings: - Physical Exam. General: Obese, not acutely ill looking, in no apparent distress,. HEENT: Normocephalic, atraumatic, nonicteric sclera, nonanemic conjunctive. Neck: Supple, without JVD or goiter or thyroid mass. Respiratory: Coarse breath sound with a crackle at both lung bases no wheezing or rhonchi. Cardiovascular: Irregular rapid heart rate , no murmur no gallop. Gastrointestinal: Normal bowel sounds, nondistended, nontender, No ascites, , No masses, no hepatosplenomegaly. Extremities : No clubbing, +3 /+ 3 peripheral edema, full range of motion, no deformity, no muscle atrophy. Integumentary: No rashes, petechia, suspected lesions. Lymphatics: No axilla or cervical lymphadenopathy. Neurology; alert awake oriented x3, no focal neurologic deficit, normal affection . mood and behavior. Assessment And Plan - Plan Ms. De La Paz is a 53-year-old female with a past medical history of hypertension, CHF, tobacco abuse, DVT, PE, TIA , and CKD stage IV, atrial flutter on flecainide and Coumadin who presents to the emergency department with significant shortness of breath and lower extremity edema. She states she sees a provider at [facility] and has not been able to get her "fluid pills" filled for 16 days. She was found to have volume overload with severe peripheral edema and pulmonary edema on chest x-ray, atrial flutter with rapid ventricular response #1 hypervolemia with pulmonary edema and severe peripheral edema Slowly responding to furosemide infusion at 10 mg/h with 12.5 mg metolazone. No DVT by duplex ultrasound of both lower extremities I will order follow-up BMP tomorrow morning #2 atrial flutter with rapid ventricular response on Coumadin #3 acute decompensated heart failure with presumed normal ejection fraction Heart rate is not at target, telemetry reviewed, atrial flutter in the heart rate in the range of 120-130, scheduled for DC cardioversion with HANSEL today keep on carvedilol 12.5 mg twice daily and flecainide 100 mg twice daily INR of 2.48 in therapeutic range, will continue 7.5 mg Coumadin once a day #4 nondialysis dependent CKD stage IV BUN/creatinine stable 44/2.2, normokalemia, continue on sodium bicarb, continuous furosemide infusion #5 anemia of CKD Hemoglobin stable around 10.2, no clinical bleeding, no transfusion indicated DVT prophylaxis Coumadin Disposition; plan to discharge home in a few days
--- NOTE | 2024-03-16 11:45 | P.PN ---
Subjective Date of Service: 03/16/24 Chief Complaint: Acute respiratory fail 2nd to HFpEF, a. flutter Subjective: No new changes, No C/O voiced, Tolerating diet, Ambulating, Improving Review of Systems 10-point ROS is otherwise unremarkable Physical Examination - Vital Signs Temperature: 97.8 F Blood Pressure: 130/58 Pulse: 92 Respirations: 16 Pulse Ox (%): 96 - Physical Exam General: Alert, In no apparent distress HEENT: Atraumatic, PERRLA, EOMI Neck: Supple, JVD not distended Respiratory: Clear to auscultation bilaterally, Normal air movement Cardiovascular: Regular rate/rhythm, Normal S1 S2 Gastrointestinal: Normal bowel sounds, No tenderness Musculoskeletal: No tenderness Integumentary: No rashes Neurological: Normal speech, Normal tone, Normal affect Lymphatics: No axilla or inguinal lymphadenopathy Other Physical/Emotional Findings: - Physical Exam. General: Obese, not acutely ill looking, in no apparent distress,. HEENT: Normocephalic, atraumatic, nonicteric sclera, nonanemic conjunctive. Neck: Supple, without JVD or goiter or thyroid mass. Respiratory: Coarse breath sound with a crackle at both lung bases no wheezing or rhonchi. Cardiovascular: Irregular rapid heart rate , no murmur no gallop. Gastrointestinal: Normal bowel sounds, nondistended, nontender, No ascites, , No masses, no hepatosplenomegaly. Extremities : No clubbing, +3 /+ 3 peripheral edema, full range of motion, no deformity, no muscle atrophy. Integumentary: No rashes, petechia, suspected lesions. Lymphatics: No axilla or cervical lymphadenopathy. Neurology; alert awake oriented x3, no focal neurologic deficit, normal affection . mood and behavior. - Studies Medications List Reviewed: Yes Assessment And Plan - Current Problems (Diagnosis) (1) Atrial fibrillation Current Visit: Yes Status: Acute Plan: Patient is s/p HANSEL DCCV, currently in sinus rhythm continue Flecanide 100 mg po BID continue coumadin, INR is 2.4 (2) Acute exacerbation of CHF (congestive heart failure) Current Visit: No Status: Acute Plan: patient with +1 BLE, continue lasix drip, may switch to 40 mg PO BID in am and discharge on that for 1 week then lower to lasix 40 mg daily D/C Metolazone add Aldactone 25 mg daily continue Coreg
--- NOTE | 2024-03-16 12:48 | EKG ---
Test Date: 2024-03-13 Test Time: 13:47:29 Manager Gallery: MEASUREMENT RESULTS: Intervals: Rate: 118 [place]: QRSD: 96 QT: 196 QTc: 274 [place]: P: 230 [place]: QRS: 76 T: 97 INTERPRETIVE STATEMENTS: Atrial flutter with 2:[address] and T wave abnormality Abnormal ECG Compared to ECG 01/15/2020 15:18:12 ST (T wave) deviation now present Sinus tachycardia no longer present Atrial premature complex(es) no longer present Electronically Signed On 03-16-24 12:45:22 [employer] PROJECT MANAGER by Mathew Neil
--- NOTE | 2024-03-16 13:31 | TEE ---
TRANSESOPHAGEAL ECHOCARDIOGRAM REPORT CARDIOLOGY DEPARTMENT DATE OF STUDY: 03/16/2024 HEIGHT: 5'9 WEIGHT: 248 lbs DIAGNOSIS: ATRIAL FIBRILLATION 2 DIMENSIONAL ASSESSMENT: RIGHT ATRIUM: LEFT ATRIUM: ENLARGED RIGHT VENTRICLE: LEFT VENTRICLE: NOT ASSESSED TRICUSPID VALVE: MITRAL VALVE: NOT ASSESSED PULMONIC VALVE: AORTIC VALVE: NOT ASSESSED PERICARDIAL EFFUSION: AORTIC ROOT: COMMENTS: 1. IMAGES WERE NOT STORED DUE TO ECHO MACHINE TECHNICAL ISSUES. 2. NORMAL LEFT ATRIAL APPENDAGE. NO THROMBUS. TECHNOLOGIST: KIRK VILLAR M.D.
--- NOTE | 2024-03-16 15:17 | ECHO ---
HEIGHT: 5 ft 9 in WEIGHT: 248 lb 0 oz DATE OF STUDY: 03/16/[address]: Katelyn Rubi 2-DIMENSIONAL: YES M.MODE: YES DOPPLER: YES COLOR FLOW: YES TDS: NO PORTABLE: YES DEFINITY: NO BUBBLE STUDY: NO DIAGNOSIS: SHORTNESS OF BREATH CARDIAC HISTORY: CATHERIZATION: SURGERY: PROSTHETIC VALVE: PACEMAKER: MEASUREMENTS (cm) DIASTOLIC (NORMALS) SYSTOLIC (NORMALS) IVSd 1.0 (0.6-1.2) LA Diam 4.7 (1.9-4.0) LVEF 50-55% LVIDd 4.9 (3.5-5.7) LVIDs 3.5 (2.0-3.5) %FS 28% LVPWd 1.0 (0.6-1.2) Ao Diam 2.9 (2.0-3.7) 2 DIMENSIONAL ASSESSMENT: RIGHT ATRIUM: NORMAL LEFT ATRIUM: MILDLY DILATED RIGHT VENTRICLE: NORMAL LEFT VENTRICLE: NORMAL TRICUSPID VALVE: MILD TRICUSPID REGURGITATION MITRAL VALVE: MILD TO MODERATE MITRAL REGURGITATION PULMONIC VALVE: NORMAL AORTIC VALVE: NORMAL PERICARDIAL EFFUSION: NONE AORTIC ROOT: NORMAL LEFT VENTRICULAR WALL MOTION: NORMAL. DOPPLER/COLOR FLOW: DIASTOLIC DYSFUNCTION. COMMENTS: 1. NORMAL LEFT VENTRICULAR SYSTOLIC FUNCTION. LEFT VENTRICULAR EJECTION FRACTION 50-55%. NORMAL WALL MOTION. 2. DIASTOLIC DYSFUNCTION. 3. MILD TO MODERATE MITRAL REGURGITION. 4. ELEVATED FILLING PRESSURES. RIGHT ATRIAL PRESSURE 15-20 mmHg. TECHNOLOGIST: LEXIE MCCLELLAND
[2024-03-16] MEDS: ZOLPIDEM TARTRATE 5 MG TABLET PO PRN (20:53)
--- NOTE | 2024-03-16 21:07 | OP ---
Date of Procedure: 03/16/2024 Surgeon: Mathew Neil Procedure Performed: Synchronized transesophageal echocardiogram cardioversion. Indication For Procedure: Atrial fibrillation. Complications: None. Estimated Blood Loss: None. Sedation: Done by Anesthesia team. Description Of Procedure: After risks, benefits, and alternatives were explained to the patient, the patient agreed to proceed with procedure and signed informed consent. The patient was brought back to the OR. Time-out was performed. Sedation was administered by Anesthesia team. Next, HANSEL probe i nserted, images obtained. HANSEL probe was then out. Synchronized cardioversion was done with 200 joul es. The patient was converted back into sinus rhythm. The patient was moved back to Recovery in sta ble condition. Assessment And Plan: 1.Atrial fibrillation, status post transesophageal echocardiogram cardioversion. 2.Continue flecainide 100 mg p.o. b.i.d. 3.Continue warfarin for goal INR for 2 to 3. MELITON/TRACY Voice ID: [id number] Report ID: [id number]
[2024-03-16] MEDS: POLYETHYL GLY 3350 17 GM/DOSE PO PRN (21:23)
[2024-03-17 07:22] LABS: Anion Gap 12.1 mEq/L (5.0-15.0); Potassium 4.1 mEq/L (3.5-5.1)
--- NOTE | 2024-03-17 09:39 | P.PN ---
Subjective Date of Service: 03/17/24 Chief Complaint: Acute respiratory fail 2nd to HFpEF, a. flutter Subjective: Improving Her telemetry reviewed, converted to normal sinus rhythm after DC cardioversion yesterday, remain normal sinus rhythm overnight. patient stated that she is feeling tired and not feeling well today, denied any shortness of breath or palpitation or chest pain. She feels that she may come down with the cold. . Review of Systems Other: Consitutional; fever(-), chills (-), rigor(-), night sweat(-), unintentional weight loss(-), malaise (+) HEENT; diplopia (-), rhinorrhea (-), epistaxis (-), otorrhea (-), otalgia (-) Respiratory; shortness of breath (-), wheezing (-), cough (-), sputum (-), pleuritic chest pain (-) Cardiovascular; chest pain (-), peripheral edema (+), paroxysmal nocturnal dyspnea (-), orthopnea (-) Gastrointestinal; nausea (-), vomiting (-), abdominal pain (-), diarrhea (-), constipation (-), melena (-), hematochezia (-) Genitourinary; urinary frequency (-), dysuria (-), urgency (-), flank pain (-), gross hematuria (-), incontinence (-) Skin; rash (-), pruritus (-) [employer]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 General: Obese, not acutely ill looking, in no apparent distress,. HEENT: Normocephalic, atraumatic, nonicteric sclera, nonanemic conjunctive. Neck: Supple, without JVD or goiter or thyroid mass. Respiratory: Coarse breath sound with a crackle at both lung bases no wheezing or rhonchi. Cardiovascular: Irregular rapid heart rate , no murmur no gallop. Gastrointestinal: Normal bowel sounds, nondistended, nontender, No ascites, , No masses, no hepatosplenomegaly. Extremities : No clubbing, +1 /+ 1 peripheral edema, full range of motion, no deformity, no muscle atrophy. Integumentary: No rashes, petechia, suspected lesions. Lymphatics: No axilla or cervical lymphadenopathy. Neurology; alert awake oriented x3, no focal neurologic deficit, normal affection . mood and behavior. - Studies Medications List Reviewed: Yes Assessment And Plan - Plan Ms. De La Paz is a 53-year-old female with a past medical history of hypertension, CHF, tobacco abuse, DVT, PE, TIA , and CKD stage IV, atrial flutter on flecainide and Coumadin who presents to the emergency department with significant shortness of breath and lower extremity edema. She states she sees a provider at [facility] and has not been able to get her "fluid pills" filled for 16 days. She was found to have volume overload with severe peripheral edema and pulmonary edema on chest x-ray, atrial flutter with rapid ventricular response #1 hypervolemia with pulmonary edema and severe peripheral edema Slowly responding to furosemide infusion but cut down to 5 mg/h with 12.5 mg metolazone. Urine output ordered but not measured Good oxygenation on nasal cannula 1 L/min No DVT by duplex ultrasound of both lower extremities on admission #2 atrial flutter with rapid ventricular response on Coumadin status post DC cardioversion with HANSEL on March 16 Converted and remained in normal sinus rhythm #3 acute decompensated heart failure with presumed normal ejection fraction keep on carvedilol 12.5 mg twice daily and flecainide 100 mg twice daily INR in therapeutic range, will continue 7.5 mg Coumadin once a day, I will order another INR tomorrow morning #4 YONATAN on nondialysis dependent CKD stage IV associated with aggressive diuresis BUN/creatinine elevated to 50/3.9 normokalemia, which is expected with aggressive diuresis, I will decrease the furosemide infusion rate and recheck BMP tomorrow morning, normokalemia, continue on sodium bicarb, #5 anemia of CKD Hemoglobin stable around 10.2, no clinical bleeding, no transfusion indicated DVT prophylaxis Coumadin Disposition; plan to discharge home in a few days
[2024-03-17] MEDS: FUROSEMIDE 100 MG in NA CHLORIDE 0.9% 90 ML IV SCH (10:40)
[2024-03-17] MEDS: DOCUSATE NA 100 MG CAP PO SCH (20:45)
[2024-03-18 01:49] VITALS: O2SAT 96
[2024-03-18 09:35] LABS: Absolute Basophils 0.1 K/uL (0-0.5); Absolute Eosinophils 0.2 K/uL (0-0.5); Absolute Lymphocytes (CBC) 1.7 K/uL (0.7-4.9); Absolute Monocytes 0.5 K/uL (0.1-1.3); Absolute Neutrophil 6.3 K/uL (1.8-8.0); Basophils % 0.9 % (0-1.3); Eosinophils % 1.9 % (0-4.4); Hematocrit 32.5 % (36.0-45.0); Hemoglobin 10.8 g/dL (12.0-15.0); Lymphocytes % 19.6 % (15.3-44.8); MCH 27.1 pg (27.0-35.0); MCHC 33.1 g/dL (32.0-36.0); MCV 81.9 fL (80-100); MPV 7.4 fL (7.6-11.3); Monocytes % 5.5 % (3.3-12.3); Neutrophils % 72.1 % (41.7-73.7); Platelets 337 thou/uL (152-406); RBC Red Blood Cell Count 3.97 M/uL (3.86-4.86); Red Cell Distribution Width 16.7 % (12.1-15.2)
[2024-03-18 09:45] LABS: PT Prothrombin Time 34.8 SECONDS (9.4-12.5); Protime INR 3.21
[2024-03-18 09:53] LABS: Anion Gap 13.2 mEq/L (5.0-15.0); Potassium 3.2 mEq/L (3.5-5.1)
--- NOTE | 2024-03-18 10:46 | P.DS ---
Admission Date: 03/13/24 Discharge Date: 03/18/24 Disposition: ROUTINE DISCHARGE Discharge Condition: GOOD Reason for Admission: Acute respiratory fail 2nd to HFpEF, a. flutter Brief History of Present Illness: Ms. De La Paz is a 53-year-old female with a past medical history of hypertension, CHF, tobacco abuse, DVT, PE, TIA , and CKD stage IV, atrial flutter on flecainide and Coumadin who presents to the emergency department with sign ificant shortness of breath and lower extremity edema. She states she sees a provider at [facility] and has not been able to get her "fluid pills" filled for 16 days. She was found to have volume overload with severe peripheral edema and pulmonary edema on chest x-ray, atrial flutter with rapid ventricular response Hospital Course: She was started on furosemide infusion at 10 mg/h and 2.5 mg metolazone. Patient responded well with good diuresis and significant decrease in peripheral edema and pulmonary edema. Patient persistently have atrial flutter with rapid ventricular response in the rate of 1 30-40 in spite of carvedilol and flecainide therefore patient underwent a DC cardioversion with HANSEL on March 16. She was successfully converted to normal sinus rhythm and remained in normal surface rhythm for the rest of the hospitalization. She developed mild YONATAN on CKD due to aggressive diuresis, serum creatinine was trending down at the time of discharge. She was continuously anticoagulated with warfarin 7.5 mg daily, her INR was in therapeutic range except 1 reading of 3.2. She is being discharged home. Plan is to titrate oral furosemide to 60 mg twice daily for better volume control, follow-up with her cardiology and nephrology after discharge. #1 hypervolemia with pulmonary edema and severe peripheral edema related to #2 and #3 Slowly responding to furosemide infusion No DVT by duplex ultrasound of both lower extremities on admission #2 atrial flutter with rapid ventricular response on Coumadin status post DC cardioversion with HANSEL on March 16 Converted and remained in normal sinus rhythm keep on carvedilol 12.5 mg twice daily and flecainide 100 mg twice daily INR in therapeutic range on 7.5 mg Coumadin once a day, #3 acute decompensated heart failure with presumed normal ejection fraction Treated with furosemide infusion and carvedilol, contraindicated to RAAS for CKD #4 YONATAN on nondialysis dependent CKD stage IV associated with aggressive diuresis Her baseline creatinine was around 2.2, BUN/creatinine elevated to 50/3.9 normokalemia, which is expected with aggressive diuresis, serum creatinine down to 3.5 after titrating down furosemide infusion at 5 mg/h continue on sodium bicarb, #5 anemia of CKD Hemoglobin stable around 10.2, no clinical bleeding, no transfusion given during hospitalization Vital Signs/Physical Exam: Temp Pulse Resp BP Pulse Ox 97.9 F 80 16 150/94 H 98 03/18/24 08:00 03/18/24 08:00 03/18/24 08:00 03/18/24 08:00 03/18/24 08:00 Other Physical/Emotional Findings: - Physical Exam. General: Obese, not acutely ill looking, in no apparent distress,. HEENT: Normocephalic, atraumatic, nonicteric sclera, nonanemic conjunctive. Neck: Supple, without JVD or goiter or thyroid mass. Respiratory: Coarse breath sound with a crackle at both lung bases no wheezing or rhonchi. Cardiovascular: Irregular rapid heart rate , no murmur no gallop. Gastrointestinal: Normal bowel sounds, nondistended, nontender, No ascites, , No masses, no hepatosplenomegaly. Extremities : No clubbing, +1 /+ 1 peripheral edema, full range of motion, no deformity, no muscle atrophy. Integumentary: No rashes, petechia, suspected lesions. Lymphatics: No axilla or cervical lymphadenopathy. Neurology; alert awake oriented x3, no focal neurologic deficit, normal affection . mood and behavior. Laboratory Data at Discharge: WBC 8.70 thou/uL (4.3-10.9) 03/18/24 09:14 Hgb 10.8 g/dL (12.0-15.0) L 03/18/24 09:14 Hct 32.5 % (36.0-45.0) L 03/18/24 09:14 Plt Count 337 thou/uL (152-406) 03/18/24 09:14 PT 34.8 SECONDS (9.4-12.5) H 03/18/24 09:14 INR 3.21 03/18/24 09:14 APTT 36.6 SECONDS (24.3-36.9) 03/13/24 13:28 Sodium 127 mEq/L (136-145) L D 03/18/24 09:14 Potassium 3.2 mEq/L (3.5-5.1) L D 03/18/24 09:14 BUN 60 mg/dL (7-18) H 03/18/24 09:14 Creatinine 3.55 mg/dL (0.55-1.02) H 03/18/24 09:14 Glucose 166 mg/dL (74-106) H 03/18/24 09:14 Magnesium Cancelled 03/14/24 Unknown Total Bilirubin 0.7 mg/dL (0.2-1.0) 03/14/24 04:05 AST 41 U/L (15-37) H 03/14/24 04:05 ALT 62 U/L (13-56) H 03/14/24 04:05 Alkaline Phosphatase 184 U/L (45-117) H 03/14/24 04:05 Home Medications: Sertraline [Zoloft*] 100 mg PO BID 11/17/16 Budesonide/Formoterol Fumarate [Symbicort 160-4.5 Mcg Inhaler] 1 puff IH BID 01/15/20 Flecainide [Tambocor*] 50 mg PO BID 03/13/24 Sodium Bicarbonate 650 mg PO TID 03/13/24 Warfarin Sodium 7.5 mg PO BEDTIME 03/13/24 Carvedilol [Coreg] 12.5 mg PO BID #60 03/18/24 Docusate [Colace Cap*] 100 mg PO BID cap 03/18/24 Flecainide [Tambocor*] 100 mg PO BID tab 03/18/24 Furosemide [Lasix*] 60 mg PO BID #45 tab 03/18/24 Na Bicarb Tab [Sodium Bicarb 325 MG Tab*] 650 mg PO BID tab 03/18/24 Nicotine [Nicoderm*] 21 mg TD DAILY #30 03/18/24 Warfarin Sodium [Coumadin*] 7.5 mg PO DAILY 5 PM tab 03/18/24 New Medications: Carvedilol [Coreg] 12.5 mg PO BID #60 Furosemide [Lasix*] 60 mg PO BID #45 tab Nicotine [Nicoderm*] 21 mg TD DAILY #30 Diet: Renal Activity: Ad taya Followup: Omkar Decker DO [Primary Care Provider] -
[2024-03-18] MEDS: POTASSIUM CL SA 10 MEQ TAB PO ONE (11:37)
[2024-03-18 14:17] VITALS: BP 133/78; TEMP 97.7
== END 2024-03-18 13:06 | disposition home or self-care (01) | DRG 291 ==
LOC: ER 12:58 → ERHOLD 17:15 → 2ND 19:08
PROVIDERS: ADMIT Internal Medicine; ATTEND Internal Medicine
PROC: B24BZZ4 Ultrasonography of Heart with Aorta, Transesophageal (ICD-10-PCS; principal; 2024-03-16)
PROC: 5A2204Z Restoration of Cardiac Rhythm, Single (ICD-10-PCS; 2024-03-16)
DX: I13.0 Hypertensive heart and chronic kidney disease with heart failure and stage 1 through stage 4 chronic kidney disease, or unspecified chronic kidney disease (principal); I50.33 Acute on chronic diastolic (congestive) heart failure; J96.01 Acute respiratory failure with hypoxia; N18.4 Chronic kidney disease, stage 4 (severe); I48.92 Unspecified atrial flutter; N17.9 Acute kidney failure, unspecified; D63.1 Anemia in chronic kidney disease; F17.210 Nicotine dependence, cigarettes, uncomplicated; Z88.0 Allergy status to penicillin; Z79.01 Long term (current) use of anticoagulants; Z79.52 Long term (current) use of systemic steroids; Z86.73 Personal history of transient ischemic attack (TIA), and cerebral infarction without residual deficits; Z86.711 Personal history of pulmonary embolism; Z86.718 Personal history of other venous thrombosis and embolism; Z79.899 Other long term (current) drug therapy
CPT/HCPCS: 01922; 36415; 71045; 80048; 80053; 83605; 83735; 83880; 84132; 84484; 85025; 85610; 85730; 87040; 92960; 93005; 93306; 93312; 93970; 96374; 99285; J1940; J2003; J2704; J7040